=== PATIENT | female | born 1940 | race Caucasian/White ===

== ENCOUNTER 2017-12-21 18:21 | Emergency (ER) | payer MEDICARE, SELFPAY ==
[2017-12-21 18:22] VITALS: BP 159/103; PULSE 90; RESP 14; TEMP 36.8; O2SAT 95; BMI 40.2
--- NOTE | 2017-12-21 18:56 | ED.DCSUM_ITS ---
- ER Visit Summary Date of Service: 12/21/17 Chief Complaint: Right knee pain History of Present Illness: The patient is a 77 F with history of arthritis who presents with 1 week of right knee pain. Patient states she has not had pain in her right knee before, but began having pain similar to her arthritic pain in her left knee one week ago . She was seen by her primary care doctor 5 days ago, and was given a shot in the knee, with complete resolution of the pain. Patient had no further pain until today. She has pain with weightbearing that is requiring her to use a walker. She normally only uses the walker at night when trying to go to the bathroom. She denies fever. No history of injury. No swelling. Pain is sharp and aching. She took one Vicodin 2 hours prior to presentation but states that it has not helped the pain. No other complaints at this time. Physical Examination: Patient is well-nourished and well-developed, afebrile, laying in bed in no distress. Skin is warm and dry without rash. DP pulses are 2+ and symmetric. Appearance of the knees are symmetric. Right knee has full active and passive flexion and extension, with patient able to fully extend the leg and lifted off the bed. Tenderness to palpation over the medial proximal tibia in the bursa distribution. No swelling or ballotable fluid collection noted. Mild tenderness to palpation of the posterior fossa without any swelling. No rashes. No overlying erythema or warmth. Distal strength and sensation are intact. No calf tenderness. No palpable cords. No laxity on varus or valgus stress. Negative anterior and posterior drawer. Test Results: [] Emergency Department Course and Treatment: She was given subcutaneous morphine for pain, as she has history of bleeding ulcers and cannot take NSAIDs. X-ray of the knee was performed. No obvious fracture trauma was noted. There was noted calcification and a curved pattern in the posterior fossa, however this does seem more consistent with vasculature calcification rather than a fracture given the patient has no trauma history. Patient's maximum tenderness is more in the anterior medial proximal tibia/knee region rather than posteriorly. Patient's exam is not concerning for septic joint. This also was not consistent with a DVT. Patient will continue home [id number] pain medication and follow-up with her orthopedic doctor that has managed her left knee that had similar symptoms years ago. Patient was discharged home with return precautions if she has any worsening of her condition or inability to walk due to worsening pain. Treatment Plan: [] Disposition: [] Impression: Right knee pain, history of osteoarthritis This note was generated with [employer] dictation software. It may contain incorrect words, spelling, and punctuation that were not noted in review of the chart prior to signing ED Disposition - Plan for ED Patient: Disposition: Home or Assisted Living Chief Complaint: Lower Extremity Injury Instructions: ED Knee Pain [facility] Referrals: Chris Mendez Chi, MD [Primary Care Provider] - 1-2 Days if not improving Additional Instructions: Please follow-up with your orthopedic doctor for further evaluation of your knee pain. Please continue taking Tylenol as needed for pain, and take it for mild pain rather than waiting till your pain is out of control. If you find you are unable to walk because the pain is so severe, even with your walker, please come back to the emergency department for another evaluation. If you develop fever, swelling, redness or skin changes over the knee, please come back for another evaluation as well.
--- NOTE | 2017-12-21 18:59 | RAD_ITS ---
STUDY: X-RAY - RIGHT KNEE REASON FOR EXAM: Female, 77 years old. Pain. TECHNIQUE: 4 view(s) of the knee. COMPARISON: None. FINDINGS: Normal visualized distal femur. Normal visualized proximal tibia and fibula. Normal proximal tibiofibular articulation. There is mild degenerative arthrosis of the medial femorotibial compartment. There is mild degenerative arthrosis of the patellofemoral articulation. There is a faint density within the lateral compartment. There is a curvilinear calcific density projecting over the posterior knee that may be vascular in nature. RAD/Knee 4 or More Views IMPRESSION: Degenerative changes. Findings suggestive of chondrocalcinosis. Indeterminate curvilinear density projecting over the posterior knee, may be vascular or possibly posttraumatic in nature. Electronically Signed: Letty Miles MD at 20:10 EST Tel , Service support ,
--- NOTE | 2017-12-21 20:15 | ED.RN ---
no reaction at injection site.
[2017-12-21 20:59] VITALS: BP 137/87; PULSE 70; RESP 20; O2SAT 95
--- NOTE | 2017-12-21 21:20 | ED.DEP ---
ED Disposition - Plan for ED Patient: Disposition: Home or Assisted Living Chief Complaint: Lower Extremity Injury Instructions: ED Knee Pain [facility] Referrals: Chris Mendez Chi, MD [Primary Care Provider] - 1-2 Days if not improving Additional Instructions: Please follow-up with your orthopedic doctor for further evaluation of your knee pain. Please continue taking Tylenol as needed for pain, and take it for mild pain rather than waiting till your pain is out of control. If you find you are unable to walk because the pain is so severe, even with your walker, please come back to the emergency department for another evaluation. If you develop fever, swelling, redness or skin changes over the knee, please come back for another evaluation as well.
[2017-12-21 21:38] VITALS: RESP 20
== END 2017-12-21 21:38 | disposition home or self-care (01) ==
PROVIDERS: Emergency Provider Emergency Medicine; Family Provider Family Medicine Geriatric Medicine; PCP Family Medicine Geriatric Medicine
DX: M17.0 Bilateral primary osteoarthritis of knee (principal); M25.561 Pain in right knee; Z79.899 Other long term (current) drug therapy
CPT/HCPCS: 73564; 96372; 99282

== ENCOUNTER → 2018-02-10 15:01 | Outpatient (CLI) | payer MEDICARE, SELFPAY ==
[2018-02-10 17:14] LABS: Absolute Lymphocyte Count 1.21 X10^3/ul (0.83-4.51); Basophil# 0.01 X10^3/uL; Basophil% 0.1 % (0-1); Eosinophil# 0.14 X10^3/uL; Eosinophils% 1.5 % (0-5); Hematocrit 43.3 % (37-47); Hemoglobin 14.2 g/dl (12.0-15.0); Lymphocyte # 1.21 X10^3/ul (4.0); Lymphocyte % 12.9 % (19-41); Mean Corp Hgb Conc 32.8 g/gl (32-36); Mean Corpuscular Hgb 29.3 pg (27.0-32.0); Mean Corpuscular Volume 89.5 fL (81-99); Monocyte# 0.98 X10^3/uL; Monocyte% 10.4 % (0-10); Neutrophil # 7.04 X10^3/uL (2.7-7.7); Platelet Count 192 K/mm3 (150-450); RBC Distribution Width CV 13.8 % (11.6-14.6); RBC Distribution Width SD 44.7 fl (35.1-43.9); Red Blood Count 4.84 M/mm3 (4.2-5.4); White Blood Count 9.4 K/mm3 (4.4-11.0)
[2018-02-10 17:22] LABS: Anion Gap 9 (5-15); BUN 23 mg/dL (7-18); BUN/Creat Ratio 29.2 RATIO (10-20); CRP 8.11 mg/L (0.0-3.0); Calcium,Total 8.8 mg/dL (8.5-10.1); Chloride 105 mmol/L (98-107); Creatinine, Serum 0.79 mg/dL (0.55-1.02); EST Glomerular Filtration Rate 75 mL/min (>60); Est Glom Filt Rate - Afr Amer 90 mL/min (>60); Glucose 96 mg/dL (74-106); Phosphorus 3.5 mg/dL (2.5-4.9); Potassium 3.9 mmol/L (3.5-5.1); Sodium Level 140 mmol/L (136-145)
[2018-02-10 17:57] LABS: Erythrocyte Sedimentation Rate 7 mm/hr (0-30)
[2018-02-10 17:59] LABS: POSITIVE COUNT NO; POSITIVE DIFFERENTIAL NO; POSITIVE MORPHOLOGY NO
== END ==
PROVIDERS: Family Provider Family Medicine Geriatric Medicine; PCP Family Medicine Geriatric Medicine; Visit Provider Family Medicine Geriatric Medicine
DX: R25.9 Unspecified abnormal involuntary movements (principal)
CPT/HCPCS: 36415; 80048; 83735; 84100; 85025; 85652; 86140

== ENCOUNTER → 2018-03-13 12:23 | Outpatient (CLI) | payer MEDICARE, SELFPAY ==
[2018-03-13 13:41] LABS: Absolute Lymphocyte Count 1.52 X10^3/ul (0.83-4.51); Absolute Neutrophil Count 4.1 X10^3/uL (2.0-7.7); Basophil# 0.02 X10^3/uL; Basophil% 0.3 % (0-1); Eosinophil# 0.15 X10^3/uL; Eosinophils% 2.4 % (0-5); Hematocrit 45.1 % (37-47); Hemoglobin 14.9 g/dl (12.0-15.0); Lymphocyte # 1.52 X10^3/ul (4.0); Lymphocyte % 23.9 % (19-41); Mean Corpuscular Hgb 29.6 pg (27.0-32.0); Mean Corpuscular Volume 89.7 fL (81-99); Mean Platelet Vol. 10.6 fl (6.2-12.0); Monocyte# 0.59 X10^3/uL; Monocyte% 9.3 % (0-10); Neutrophil # 4.07 X10^3/uL (2.7-7.7); Neutrophil % 63.8 % (47-70); POSITIVE COUNT NO; POSITIVE DIFFERENTIAL NO; POSITIVE MORPHOLOGY NO; Platelet Count 203 K/mm3 (150-450); RBC Distribution Width CV 13.7 % (11.6-14.6); Red Blood Count 5.03 M/mm3 (4.2-5.4); White Blood Count 6.4 K/mm3 (4.4-11.0)
[2018-03-13 14:09] LABS: ALB/GLOB Ratio 1.1 RATIO (0.9-2.4); AST(SGOT) 23 U/L (15-37); Alanine Aminotransfer ALT/SGPT 22 U/L (13-56); Albumin, Serum 3.5 g/dL (3.2-5.0); Alkaline Phosphatase 88 U/L (45-117); Anion Gap 6 (5-15); BUN 17 mg/dL (7-18); BUN/Creat Ratio 18.4 RATIO (10-20); Chloride 105 mmol/L (98-107); Creatinine, Serum 0.92 mg/dL (0.55-1.02); EST Glomerular Filtration Rate 62 mL/min (>60); Est Glom Filt Rate - Afr Amer 75 mL/min (>60); Globulin 3.3 g/dL (2.2-4.2); Glucose 131 mg/dL (74-106); Potassium 4.2 mmol/L (3.5-5.1); Protein, Total 6.8 g/dL (6.4-8.2); Sodium Level 140 mmol/L (136-145); Thyroid Stim Hormone (TSH) 2.31 uIU/mL (0.358-3.74)
[2018-03-14 09:59] LABS: Vitamin D,25 Hydroxy 27.8 ng/mL (29.95-100.01)
== END ==
PROVIDERS: Family Provider Family Medicine Geriatric Medicine; PCP Family Medicine Geriatric Medicine; Visit Provider Family Medicine Geriatric Medicine
DX: E55.9 Vitamin D deficiency, unspecified (principal); R53.83 Other fatigue
CPT/HCPCS: 36415; 80053; 82306; 84443; 85025

== ENCOUNTER 2018-05-16 01:14 | Emergency (ER) | payer OTHER, SELFPAY ==
[2018-05-16 01:15] VITALS: BP 130/99; PULSE 89; RESP 14; TEMP 37.2; O2SAT 94; BMI 41.8
--- NOTE | 2018-05-16 02:01 | RAD_ITS ---
STUDY: X-RAY - UNILATERAL RIBS ( RIGHT ) WITH CHEST REASON FOR EXAM: Female, 78 years old. Trauma TECHNIQUE - RIBS: 4 view(s) of the ribs. TECHNIQUE - CHEST: Frontal view COMPARISON: February 03, 2017 FINDINGS - RIBS: Normal visualized ribs without a demonstrated fracture. FINDINGS - CHEST: There are fibrotic changes at the lung bases. There are NO active infiltrates. There are NO effusions or pneumothoraces. The heart is enlarged. Normal mediastinum and eddie. Normal visualized pulmonary arteries. Normal visualized aortic arch and descending thoracic aorta. Normal visualized thoracic spine. Normal visualized ribs, clavicles, and shoulders. There is no demonstrated abnormality of the visualized soft tissue structures of the upper abdomen. RAD/Ribs Uni Min 3V w/PA Chest IMPRESSION: RIBS: Normal x-ray examination of the ribs. CHEST: There is NO acute cardiopulmonary abnormality. Electronically Signed: Marcelino Benitez MD at 4:43 EDT , Service support ,
--- NOTE | 2018-05-16 02:01 | RAD_ITS ---
STUDY: X-RAY - LEFT KNEE REASON FOR EXAM: Female, 78 years old. Status post fall. TECHNIQUE: 2 view(s) of the knee. COMPARISON: None. FINDINGS: Normal visualized distal femur. Normal visualized proximal tibia and fibula. Normal proximal tibiofibular articulation. There is no demonstrated fracture. Normal medial femorotibial compartment. Normal lateral femorotibial compartment. Normal patellofemoral articulation. There is a soft tissue prominence in the suprapatellar region suggesting a small volume joint effusion. There are atherosclerotic calcifications. RAD/Knee 1 or 2 Views IMPRESSION: Small joint effusion. Degenerative arthrosis. No demonstrated acute fracture. Electronically Signed: Julio Horvath MD at 3:26 EDT Tel , Service support ,
--- NOTE | 2018-05-16 02:01 | RAD_ITS ---
STUDY: X-RAY - RIGHT KNEE REASON FOR EXAM: Female, 78 years old. Trauma TECHNIQUE: 2 view(s) of the knee. COMPARISON: 12/21/2017 FINDINGS: Bony structures are intact. There are NO fractures or malalignments. There is prepatellar soft tissue swelling. There is NO joint effusion. RAD/Knee 1 or 2 Views IMPRESSION: There is NO acute bony abnormality. There is prepatellar soft tissue swelling. Electronically Signed: Marcelino Benitez MD at 4:29 EDT , Service support ,
--- NOTE | 2018-05-16 03:55 | ED.VISSUMM ---
- ER Visit Summary Date of Service: 05/16/18 Chief Complaint: Fall History of Present Illness: The patient is a 78 F who presents after a fall. She fell 10 hours prior to presentation. This was a mechanical fall from standing. She fell forward and hit her chest. She also fell onto her bilateral knees. She complains of mild pain in the front of both knees but is mostly concerned with some right lower lateral chest pain. She is not short of breath. No head injury loss of consciousness. She is not anticoagulated. Physical Examination: Afebrile vitals are stable Moist mucous membranes Neck nontender No evidence of head trauma GCS of 15 with no focal or lateralizing neurological deficits Lungs are clear with equal breath sounds bilaterally Heart is regular rate and rhythm Patient does have right lower lateral chest wall tenderness Abdomen soft nontender nondistended Test Results: Left knee x-ray read by radiology shows a small effusion no fracture. Right knee x-ray read by me shows no fracture. Rib series with a PA chest read by me shows no pneumothorax, there does appear to be a fracture of the eighth rib. Emergency Department Course and Treatment: Radiology has read the left knee x-ray but no other imaging. Patient does not wish to wait any longer. She was given an incentive spirometer. She has oxycodone at home as needed for pain. She was advised on supportive care. She understands to return for new or worsening symptoms. She was discharged. Treatment Plan: [] Disposition: Discharge Impression: Bilateral knee contusions Eighth rib fracture, right This note was generated with [employer] dictation software. It may contain incorrect words, spelling, and punctuation that were not noted in review of the chart prior to signing ED Disposition - Plan for ED Patient: Chief Complaint: Fall Referrals: Chris Mendez Chi, MD [Primary Care Provider] -
--- NOTE | 2018-05-16 03:58 | ED.DCSUM_ITS ---
- ER Visit Summary Date of Service: 05/16/18 Chief Complaint: Fall History of Present Illness: The patient is a 78 F who presents after a fall. She fell 10 hours prior to presentation. This was a mechanical fall from standing. She fell forward and hit her chest. She also fell onto her bilateral knees. She complains of mild pain in the front of both knees but is mostly concerned with some right lower lateral chest pain. She is not short of breath. No head injury loss of consciousness. She is not anticoagulated. Physical Examination: Afebrile vitals are stable Moist mucous membranes Neck nontender No evidence of head trauma GCS of 15 with no focal or lateralizing neurological deficits Lungs are clear with equal breath sounds bilaterally Heart is regular rate and rhythm Patient does have right lower lateral chest wall tenderness Abdomen soft nontender nondistended Test Results: Left knee x-ray read by radiology shows a small effusion no fracture. Right knee x-ray read by me shows no fracture. Rib series with a PA chest read by me shows no pneumothorax, there does appear to be a fracture of the eighth rib. Emergency Department Course and Treatment: Radiology has read the left knee x- ray but no other imaging. Patient does not wish to wait any longer. She was given an incentive spirometer. She has oxycodone at home as needed for pain. She was advised on supportive care. She understands to return for new or worsening symptoms. She was discharged. Treatment Plan: [] Disposition: Discharge Impression: Bilateral knee contusions Eighth rib fracture, right This note was generated with [employer] dictation software. It may contain incorrect words, spelling, and punctuation that were not noted in review of the chart prior to signing ED Disposition - Plan for ED Patient: Chief Complaint: Fall Referrals: Chris Mendez Chi, MD [Primary Care Provider] -
--- NOTE | 2018-05-16 03:58 | ED.DEP ---
ED Disposition - Plan for ED Patient: Chief Complaint: Fall Instructions: ED Mechanical Fall, ED Fx Rib, ED Contusion Lower Ext Referrals: Chris Mendez Chi, MD [Primary Care Provider] -
[2018-05-16 04:16] VITALS: RESP 18
== END 2018-05-16 04:18 | disposition home or self-care (01) ==
PROVIDERS: Emergency Provider Emergency Medicine; Family Provider Family Medicine Geriatric Medicine; PCP Family Medicine Geriatric Medicine
DX: S22.31XA Fracture of one rib, right side, initial encounter for closed fracture (principal); S80.02XA Contusion of left knee, initial encounter; S80.01XA Contusion of right knee, initial encounter; I10 Essential (primary) hypertension; E78.00 Pure hypercholesterolemia, unspecified; Z79.899 Other long term (current) drug therapy; W18.30XA Fall on same level, unspecified, initial encounter; Y93.89 Activity, other specified; Y92.89 Other specified places as the place of occurrence of the external cause; Y99.8 Other external cause status
CPT/HCPCS: 71101; 73560; 99284

== ENCOUNTER → 2018-07-22 15:57 | Outpatient (CLI) | payer MEDICARE, SELFPAY ==
[2018-07-22 16:52] LABS: Absolute Lymphocyte Count 1.98 X10^3/ul (0.83-4.51); Absolute Neutrophil Count 4.3 X10^3/uL (2.0-7.7); Basophil# 0.01 X10^3/uL; Basophil% 0.1 % (0-1); Eosinophil# 0.19 X10^3/uL; Eosinophils% 2.7 % (0-5); Hematocrit 44.4 % (37-47); Hemoglobin 14.4 g/dl (12.0-15.0); Lymphocyte # 1.98 X10^3/ul (4.0); Mean Corp Hgb Conc 32.4 g/gl (32-36); Mean Corpuscular Hgb 29.3 pg (27.0-32.0); Mean Corpuscular Volume 90.2 fL (81-99); Mean Platelet Vol. 10.7 fl (6.2-12.0); Monocyte# 0.56 X10^3/uL; Monocyte% 7.9 % (0-10); Neutrophil # 4.32 X10^3/uL (2.7-7.7); Neutrophil % 61.3 % (47-70); POSITIVE COUNT NO; POSITIVE DIFFERENTIAL NO; POSITIVE MORPHOLOGY NO; Platelet Count 217 K/mm3 (150-450); RBC Distribution Width CV 12.9 % (11.6-14.6); RBC Distribution Width SD 42.1 fl (35.1-43.9); Red Blood Count 4.92 M/mm3 (4.2-5.4); White Blood Count 7.1 K/mm3 (4.4-11.0)
[2018-07-22 16:59] LABS: Anion Gap 8 (5-15); BUN 25 mg/dL (7-18); CRP < 2.90 mg/L (0.0-3.0); Calcium,Total 9.1 mg/dL (8.5-10.1); Chloride 105 mmol/L (98-107); EST Glomerular Filtration Rate 57 mL/min (>60); Est Glom Filt Rate - Afr Amer 69 mL/min (>60); Glucose 162 mg/dL (74-106); Sodium Level 141 mmol/L (136-145)
[2018-07-22 17:01] LABS: Erythrocyte Sedimentation Rate 11 mm/hr (0-30)
== END ==
PROVIDERS: Family Provider Family Medicine Geriatric Medicine; PCP Family Medicine Geriatric Medicine; Visit Provider Family Medicine Geriatric Medicine
DX: M35.3 Polymyalgia rheumatica (principal)
CPT/HCPCS: 36415; 80048; 85025; 85652; 86140

== ENCOUNTER → 2018-08-21 11:16 | Outpatient (CLI) | payer MEDICARE, SELFPAY ==
[2018-08-21 12:02] LABS: Absolute Lymphocyte Count 1.55 X10^3/ul (0.83-4.51); Basophil# 0.02 X10^3/uL; Basophil% 0.3 % (0-1); Eosinophil# 0.27 X10^3/uL; Eosinophils% 3.5 % (0-5); Hematocrit 45.2 % (37-47); Hemoglobin 14.7 g/dl (12.0-15.0); Lymphocyte # 1.55 X10^3/ul (4.0); Lymphocyte % 20.2 % (19-41); Mean Corp Hgb Conc 32.5 g/gl (32-36); Mean Corpuscular Hgb 29.2 pg (27.0-32.0); Mean Corpuscular Volume 89.9 fL (81-99); Mean Platelet Vol. 10.4 fl (6.2-12.0); Monocyte# 0.81 X10^3/uL; Monocyte% 10.5 % (0-10); Neutrophil # 5.02 X10^3/uL (2.7-7.7); Neutrophil % 65.4 % (47-70); Platelet Count 219 K/mm3 (150-450); RBC Distribution Width CV 13.3 % (11.6-14.6); RBC Distribution Width SD 43.3 fl (35.1-43.9); Red Blood Count 5.03 M/mm3 (4.2-5.4); White Blood Count 7.7 K/mm3 (4.4-11.0)
[2018-08-21 12:03] LABS: POSITIVE COUNT NO; POSITIVE DIFFERENTIAL NO; POSITIVE MORPHOLOGY NO
[2018-08-21 12:28] LABS: AST(SGOT) 20 U/L (15-37); Alanine Aminotransfer ALT/SGPT 23 U/L (13-56); Albumin, Serum 3.6 g/dL (3.2-5.0); Alkaline Phosphatase 113 U/L (45-117); Anion Gap 8 (5-15); BUN 21 mg/dL (7-18); Calcium,Total 8.8 mg/dL (8.5-10.1); Chloride 105 mmol/L (98-107); Creatinine, Serum 0.91 mg/dL (0.55-1.02); EST Glomerular Filtration Rate 63 mL/min (>60); Est Glom Filt Rate - Afr Amer 76 mL/min (>60); Globulin 3.6 g/dL (2.2-4.2); Glucose 88 mg/dL (74-106); Potassium 4.2 mmol/L (3.5-5.1); Protein, Total 7.2 g/dL (6.4-8.2); Sodium Level 142 mmol/L (136-145); Thyroid Stim Hormone (TSH) 2.05 uIU/mL (0.358-3.74); Vitamin D,25 Hydroxy 26.3 ng/mL (29.95-100.01)
== END ==
PROVIDERS: Family Provider Family Medicine Geriatric Medicine; PCP Family Medicine Geriatric Medicine; Visit Provider Family Medicine Geriatric Medicine
DX: I10 Essential (primary) hypertension (principal); E55.9 Vitamin D deficiency, unspecified
CPT/HCPCS: 36415; 80053; 82306; 84443; 85025

== ENCOUNTER 2018-09-19 11:39 | Emergency (ER) | payer MEDICARE, SELFPAY ==
[2018-09-19 11:40] VITALS: BP 169/118; PULSE 92; RESP 18; TEMP 36.7; O2SAT 94; BMI 40.2
[2018-09-19 11:54] VITALS: O2SAT 93
--- NOTE | 2018-09-19 11:57 | CT_ITS ---
STUDY: CT CHEST WITHOUT CONTRAST REASON FOR EXAM: Female, 78 years old. Chest wall trauma RADIATION DOSAGE (If Supplied By Facility): CTDIvol = ( 19.96 ) mGy, DLP = ( 763.25 ) mGycm TECHNIQUE: Transaxial imaging was performed without the administration of intravenous contrast material. Multiplanar coronal and sagittal images were reformatted. Individualized dose optimization techniques were used for this CT. COMPARISON: May 16, 2018 rib series FINDINGS: There are a few scattered areas of groundglass opacity. There is some volume loss in the left lung. There is a focal solid nodule within the left lower lobe measuring 6.0 mm. There is a focus of what may be atelectasis and a potential nodule measuring 7.7 x 8.5 mm in the right lower lobe. There is no demonstrated pleural abnormality. There is moderate to severe cardiac enlargement. There are coronary calcifications. There are nonspecific small mediastinal lymph nodes measuring up to 8.2 mm. Normal hilar regions. Normal unenhanced pulmonary arteries. The ascending thoracic aorta measures 4.2 x 4.3 cm. There is calcification. There is tortuosity of the distal aorta. There is a visualized atypical lymph node adjacent to the aorta at the hiatus measuring 1.3 x 1.1 cm. There is a tortuous loop of large bowel which is just under the left splenic vein with diverticula. As a small hiatal hernia. There are multi-level degenerative changes of the thoracic spine. There is a nondisplaced fracture of left rib 2. Image #23 axial views. There is no significant evidence of overlying soft tissue swelling. CT/Chest without Contrast IMPRESSION: Nondisplaced fracture left rib 2. Findings are most suspicious for underlying cardiogenic edema. There is moderate to severe cardiomegaly coronary artery calcification. There is a 6 mm solid nodule in the left lower lobe. There is questionable atelectasis versus small associated nodule in the right lower lobe. Recommend CT scan of the chest in 6 months to ensure stability Mild aneurysmal dilatation of the descending thoracic aorta. If appropriate to consider contrasted study for follow-up. No evidence of visualized superficial soft tissue hematoma Small lymph nodes near the gastroesophageal junction. Small hiatal hernia. Electronically Signed: Tammi Collazo MD at 12:55 EST Tel , Service support ,
--- NOTE | 2018-09-19 13:24 | ED.VISSUMM ---
- ER Visit Summary Date of Service: 09/19/18 Chief Complaint: Chest pain History of Present Illness: The patient is a 78 F who states that 4 days ago she was leaning over a shopping cart she felt a pop in her chest. She states that the pain has progressed up her chest wall now up and over the clavicle. No shortness of breath. She has a history of a perforated duodenum. No fevers. No rashes. Physical Examination: Afebrile noted hypertension Gen: Well-nourished well-developed Head: Normocephalic atraumatic Eyes: Perrl EOMI ENT: TMs clear no rhinorrhea moist mucous membranes Neck: Supple no lymphadenopathy no JVD nontender CVS: Regular rate rhythm no murmurs normal S1-S2 Respiratory: No distress clear to auscultation bilaterally left lower anterior costochondral area is tender to palpation. The right upper anterior chest wall is tender palpation Abdomen: Soft nontender nondistended normal bowel sounds no masses Back: Nontender Extremity: Nontender no edema Skin: Normal color no rash Neuro: alert orientated ?3 CN II-XII intact normal strength sensation reflexes gait cerebellar Psych: Normal affect normal mood Test Results: CT the chest demonstrated a rib fracture Emergency Department Course and Treatment: Patient will be treated conservatively at home. A few Patillas will be prescribed. Follow-up in 1-2 weeks. Incentive spirometry discussed. Impression: 1. Left rib fracture #2 2. Left costochondritis This note was generated with [employer] dictation software. It may contain incorrect words, spelling, and punctuation that were not noted in review of the chart prior to signing ED Disposition - Plan for ED Patient: Disposition: Home or Assisted Living Chief Complaint: Chest Other Instructions: Rib Fracture (Broken Rib), ED Chest Pain Costochondritis Prescriptions: Hydrocodone Bitart/Apap 5-325 [Patillas 5MG-325MG] 1 tab PO Q6H PRN PRN 3 Days #10 tab PRN Reason: Pain Referrals: Chris Mendez Chi, MD [Primary Care Provider] - 1-2 Weeks
--- NOTE | 2018-09-19 13:27 | ED.DCSUM_ITS ---
- ER Visit Summary Date of Service: 09/19/18 Chief Complaint: Chest pain History of Present Illness: The patient is a 78 F who states that 4 days ago she was leaning over a shopping cart she felt a pop in her chest. She states that the pain has progressed up her chest wall now up and over the clavicle. No shortness of breath. She has a history of a perforated duodenum. No fevers. No rashes. Physical Examination: Afebrile noted hypertension Gen: Well-nourished well-developed Head: Normocephalic atraumatic Eyes: Perrl EOMI ENT: TMs clear no rhinorrhea moist mucous membranes Neck: Supple no lymphadenopathy no JVD nontender CVS: Regular rate rhythm no murmurs normal S1-S2 Respiratory: No distress clear to auscultation bilaterally left lower anterior costochondral area is tender to palpation. The right upper anterior chest wall is tender palpation Abdomen: Soft nontender nondistended normal bowel sounds no masses Back: Nontender Extremity: Nontender no edema Skin: Normal color no rash Neuro: alert orientated ?3 CN II-XII intact normal strength sensation reflexes gait cerebellar Psych: Normal affect normal mood Test Results: CT the chest demonstrated a rib fracture Emergency Department Course and Treatment: Patient will be treated conservatively at home. A few Coral will be prescribed. Follow-up in 1-2 weeks. Incentive spirometry discussed. Impression: 1. Left rib fracture #2 2. Left costochondritis This note was generated with [employer] dictation software. It may contain incorrect words, spelling, and punctuation that were not noted in review of the chart prior to signing ED Disposition - Plan for ED Patient: Disposition: Home or Assisted Living Chief Complaint: Chest Other Instructions: Rib Fracture (Broken Rib), ED Chest Pain Costochondritis Prescriptions: Hydrocodone Bitart/Apap 5-325 [Coral 5MG-325MG] 1 tab PO Q6H PRN PRN 3 Days #10 tab PRN Reason: Pain Referrals: Chris Mendez Chi, MD [Primary Care Provider] - 1-2 Weeks
[2018-09-19 14:01] VITALS: BP 178/108; PULSE 86; RESP 16
--- NOTE | 2018-09-19 14:02 | ED.RN ---
BP AT D/C 175/126 WITH A REPEAT AT 172/114 mANUAL BP 178/108. DR CLARK AWARE AND ADVISED PT TO RECHECK BP OVER NEXT COUPLE DAYS AND F/U WITH THEA WALLER
== END 2018-09-19 14:12 | disposition home or self-care (01) ==
PROVIDERS: Emergency Provider Emergency Medicine; Family Provider Family Medicine Geriatric Medicine; PCP Family Medicine Geriatric Medicine
DX: M94.0 Chondrocostal junction syndrome [Tietze] (principal); S22.32XA Fracture of one rib, left side, initial encounter for closed fracture; I10 Essential (primary) hypertension; E78.00 Pure hypercholesterolemia, unspecified; G47.33 Obstructive sleep apnea (adult) (pediatric); Z79.899 Other long term (current) drug therapy; X50.1XXA Overexertion from prolonged static or awkward postures, initial encounter; Y93.89 Activity, other specified; Y92.512 Supermarket, store or market as the place of occurrence of the external cause; Y99.8 Other external cause status
CPT/HCPCS: 71250; 99282

== ENCOUNTER → 2018-11-10 14:41 | Outpatient (CLI) | payer MEDICARE, SELFPAY | PROVIDERS: Family Provider Family Medicine Geriatric Medicine; PCP Family Medicine Geriatric Medicine; Referring Provider Family Medicine Geriatric Medicine; Visit Provider Family Medicine Geriatric Medicine | DX: R53.83 Other fatigue (principal) | CPT/HCPCS: 87633 ==

== ENCOUNTER → 2019-02-11 | Outpatient (CLI) | payer MEDICARE, SELFPAY ==
--- NOTE | 2019-02-11 11:56 | RAD_ITS ---
STUDY: X-RAY CHEST REASON FOR EXAM: Female, 78 years old. Chest congestion. TECHNIQUE: PA and lateral views of the chest. COMPARISON: Comparison is made with prior study dated February 03, 2017. FINDINGS: Mild degree of increased markings at the lung bases suggestive of bibasilar atelectasis. There is blunting of the left costophrenic angle. There is moderate cardiac enlargement. Normal mediastinum and eddie. There is prominence of the pulmonary hilar arteries without peripheral pulmonary vascular congestion, suggesting pulmonary hypertension. There is atherosclerotic tortuosity of the aortic arch and descending thoracic aorta. There is a dextroscoliosis of the thoracic spine. Normal visualized ribs, clavicles, and shoulders. There is no demonstrated abnormality of the visualized soft tissue structures of the upper abdomen. RAD/Chest PA and Lateral IMPRESSION: Thyromegaly. Mild increased markings at the lung bases suggestive of atelectasis. Electronically Signed: Carlos Gross, at 15:13 EDT , Service support ,
== END | disposition home or self-care (01) ==
LOC: RAD 11:36
PROVIDERS: Family Provider Family Medicine Geriatric Medicine; PCP Family Medicine Geriatric Medicine; Referring Provider Family Medicine Geriatric Medicine; Visit Provider Family Medicine Geriatric Medicine
DX: R68.83 Chills (without fever) (principal); R69 Illness, unspecified
CPT/HCPCS: 71046; 87633

== ENCOUNTER → 2019-03-16 16:14 | Outpatient (CLI) | payer MEDICARE, SELFPAY ==
[2019-03-16 16:56] LABS: Absolute Lymphocyte Count 1.88 X10^3/ul (0.83-4.51); Basophil# 0.02 X10^3/uL; Basophil% 0.3 % (0-1); Eosinophil# 0.19 X10^3/uL; Eosinophils% 2.7 % (0-5); Hematocrit 45.9 % (37-47); Hemoglobin 15.4 g/dl (12.0-15.0); Lymphocyte # 1.88 X10^3/ul (4.0); Lymphocyte % 27.2 % (19-41); Mean Corp Hgb Conc 33.6 g/gl (32-36); Mean Corpuscular Hgb 29.1 pg (27.0-32.0); Mean Corpuscular Volume 86.6 fL (81-99); Monocyte# 0.77 X10^3/uL; Monocyte% 11.1 % (0-10); Neutrophil # 4.03 X10^3/uL (2.7-7.7); Neutrophil % 58.4 % (47-70); Platelet Count 209 K/mm3 (150-450); RBC Distribution Width CV 13.4 % (11.6-14.6); RBC Distribution Width SD 42.1 fl (35.1-43.9); White Blood Count 6.9 K/mm3 (4.4-11.0)
[2019-03-16 17:03] LABS: POSITIVE COUNT NO; POSITIVE DIFFERENTIAL NO; POSITIVE MORPHOLOGY NO
[2019-03-16 17:08] LABS: Vitamin D,25 Hydroxy 18.4 ng/mL (29.95-100.01)
[2019-03-16 17:11] LABS: ALB/GLOB Ratio 1.2 RATIO (0.9-2.4); AST(SGOT) 19 U/L (15-37); Alanine Aminotransfer ALT/SGPT 23 U/L (13-56); Albumin, Serum 3.9 g/dL (3.2-5.0); Alkaline Phosphatase 99 U/L (45-117); Anion Gap 8 (5-15); BUN 21 mg/dL (7-18); BUN/Creat Ratio 22.2 RATIO (10-20); Calcium,Total 9.2 mg/dL (8.5-10.1); Chloride 107 mmol/L (98-107); Creatinine, Serum 0.94 mg/dL (0.55-1.02); EST Glomerular Filtration Rate 60 mL/min (>60); Est Glom Filt Rate - Afr Amer 73 mL/min (>60); Globulin 3.2 g/dL (2.2-4.2); Glucose 94 mg/dL (74-106); Potassium 3.8 mmol/L (3.5-5.1); Protein, Total 7.1 g/dL (6.4-8.2); Sodium Level 142 mmol/L (136-145); Thyroid Stim Hormone (TSH) 2.58 uIU/mL (0.358-3.74)
== END ==
PROVIDERS: Family Provider Family Medicine Geriatric Medicine; PCP Family Medicine Geriatric Medicine; Visit Provider Family Medicine Geriatric Medicine
DX: E55.9 Vitamin D deficiency, unspecified (principal); I10 Essential (primary) hypertension
CPT/HCPCS: 36415; 80053; 82306; 84443; 85025

== ENCOUNTER → 2019-07-24 | Outpatient (CLI) | payer MEDICARE, SELFPAY ==
--- NOTE | 2019-07-24 10:06 | BI_ITS ---
MAMMOGRAPHY - BILATERAL SCREENING REASON FOR EXAM: Female, 79 years old. Routine annual screening examination. PERTINENT HISTORY: Non-contributory. TECHNIQUE: Digital bilateral breast tony (3D mammographic acquisition) in the CC and MLO projections. 2-D mediolateral oblique (MLO) and craniocaudad (CC) views of both breasts were obtained. CAD: Full Field Digital Mammography with Computer Added Detection was performed. COMPARISON: Comparison is made with prior examination dated June 30, 2018. FINDINGS: Breast Composition: The breasts are heterogeneously dense, which may obscure small masses. There are no dominant masses or suspicious calcifications. No other significant abnormalities are identified. There has been no significant change since the prior study. BI/SCREEN MAMM (CAD) W/TONY BILAT IMPRESSION: Stable bilateral screening mammogram. Yearly follow-up mammogram recommended. (A) ASSESSMENT CATEGORY: BIRADS Category 1: Negative. A letter regarding these results will be sent to the patient by the facility within 30 days. Approximately 10% of breast cancers are not detected by mammography. A normal mammogram should not delay biopsy of a clinically suspicious abnormality. [id number] Electronically Signed: Carlos Gross, at 12:23 EDT , Service support ,
== END | disposition home or self-care (01) ==
LOC: OPBI 10:04
PROVIDERS: Family Provider Family Medicine Geriatric Medicine; PCP Family Medicine Geriatric Medicine; Referring Provider Family Medicine Geriatric Medicine; Visit Provider Family Medicine Geriatric Medicine
DX: Z12.31 Encounter for screening mammogram for malignant neoplasm of breast (principal); Z78.0 Asymptomatic menopausal state
CPT/HCPCS: 77063; 77067

== ENCOUNTER → 2019-09-14 | Outpatient (CLI) | payer MEDICARE, SELFPAY ==
[2019-09-14 12:24] LABS: Absolute Lymphocyte Count 1.42 X10^3/uL (0.83-4.51); Absolute Neutrophil Count 3.6 X10^3/uL (2.0-7.7); Basophil# 0.02 X10^3/uL; Basophil% 0.3 % (0-1); Eosinophil# 0.27 X10^3/uL; Eosinophils% 4.6 % (0-5); Hematocrit 45.7 % (37-47); Lymphocyte # 1.42 X10^3/ul (4.0); Lymphocyte % 24.3 % (19-41); Mean Corp Hgb Conc 32.8 g/dL (32-36); Mean Corpuscular Hgb 29.2 pg (27.0-32.0); Mean Corpuscular Volume 89.1 fL (81-99); Mean Platelet Vol. 10.9 fl (6.2-12.0); Monocyte# 0.57 X10^3/uL; Monocyte% 9.7 % (0-10); NRBC Flagged by Analyzer 0 % (0-5); Neutrophil # 3.56 X10^3/uL (2.7-7.7); Neutrophil % 60.9 % (47-70); Platelet Count 166 K/mm3 (150-450); RBC Distribution Width CV 12.6 % (11.6-14.6); RBC Distribution Width SD 41.2 fl (35.1-43.9); Red Blood Count 5.13 M/mm3 (4.2-5.4); White Blood Count 5.9 K/mm3 (4.4-11.0)
[2019-09-14 12:46] LABS: Vitamin D,25 Hydroxy 25.4 ng/mL (29.95-100.01)
[2019-09-14 12:56] LABS: ALB/GLOB Ratio 1.1 RATIO (0.9-2.4); AST(SGOT) 20 U/L (15-37); Alanine Aminotransfer ALT/SGPT 20 U/L (13-56); Albumin, Serum 3.6 g/dL (3.2-5.0); Alkaline Phosphatase 104 U/L (45-117); Anion Gap 7 (5-15); BUN 17 mg/dL (7-18); BUN/Creat Ratio 21.1 RATIO (10-20); Calcium,Total 8.9 mg/dL (8.5-10.1); Chloride 107 mmol/L (98-107); EST Glomerular Filtration Rate 73 mL/min (>60); Est Glom Filt Rate - Afr Amer 88 mL/min (>60); Globulin 3.4 g/dL (2.2-4.2); Glucose 96 mg/dL (74-106); Potassium 4.3 mmol/L (3.5-5.1); Sodium Level 143 mmol/L (136-145); Thyroid Stim Hormone (TSH) 3.12 uIU/mL (0.358-3.74)
== END | disposition home or self-care (01) ==
LOC: POLAB3 11:54
PROVIDERS: Family Provider Family Medicine Geriatric Medicine; PCP Family Medicine Geriatric Medicine; Visit Provider Family Medicine Geriatric Medicine
DX: E55.9 Vitamin D deficiency, unspecified (principal); I10 Essential (primary) hypertension
CPT/HCPCS: 36415; 80053; 82306; 84443; 85025

== ENCOUNTER → 2019-11-06 11:53 | Outpatient (CLI) | payer MEDICARE, SELFPAY ==
--- NOTE | 2019-11-06 12:14 | RAD_ITS ---
STUDY: X-RAY CHEST REASON FOR EXAM: Female, 79 years old. SHORT OF BREATH TECHNIQUE: PA and lateral views of the chest. COMPARISON: 02/11/2019 FINDINGS: Fibrotic scarring in the lingula is stable. There is no demonstrated pleural abnormality. There is moderate cardiac enlargement. Normal mediastinum and eddie. Normal visualized pulmonary arteries. There is atherosclerotic tortuosity of the aortic arch and descending thoracic aorta. There is demineralization of the osseous structures. Normal visualized ribs, clavicles, and shoulders. There is no demonstrated abnormality of the visualized soft tissue structures of the upper abdomen. RAD/Chest PA and Lateral IMPRESSION: 1. Stable, nonacute x-ray examination of the chest. Electronically Signed: Jose Trevino MD ([place]) at 16:03 EST , Service support ,
[2019-11-06 12:46] LABS: Absolute Lymphocyte Count 1.56 X10^3/uL (0.83-4.51); Basophil# 0.03 X10^3/uL; Basophil% 0.4 % (0-1); Eosinophil# 0.24 X10^3/uL; Eosinophils% 3.6 % (0-5); Hematocrit 44.6 % (37-47); Hemoglobin 14.4 g/dL (12.0-15.0); Lymphocyte # 1.56 X10^3/ul (4.0); Lymphocyte % 23.4 % (19-41); Mean Corp Hgb Conc 32.3 g/dL (32-36); Mean Corpuscular Hgb 28.8 pg (27.0-32.0); Mean Corpuscular Volume 89.2 fL (81-99); Mean Platelet Vol. 10.3 fl (6.2-12.0); Monocyte# 0.81 X10^3/uL; Monocyte% 12.1 % (0-10); NRBC Flagged by Analyzer 0 % (0-5); Neutrophil # 4.01 X10^3/uL (2.7-7.7); Neutrophil % 60.2 % (47-70); Platelet Count 211 K/mm3 (150-450); RBC Distribution Width CV 13.1 % (11.6-14.6); RBC Distribution Width SD 42.5 fl (35.1-43.9); White Blood Count 6.7 K/mm3 (4.4-11.0)
[2019-11-06 13:19] LABS: BNP,B-Type NATRIURETIC PEPTIDE 284.7 pg/mL (0-100)
[2019-11-06 13:25] LABS: Anion Gap 7 (5-15); BUN 21 mg/dL (7-18); BUN/Creat Ratio 24.6 RATIO (10-20); CPK Total, Creatine Kinase 78 U/L (26-192); Calcium,Total 9.3 mg/dL (8.5-10.1); Chloride 108 mmol/L (98-107); Creatinine, Serum 0.85 mg/dL (0.55-1.02); EST Glomerular Filtration Rate 68 mL/min (>60); Est Glom Filt Rate - Afr Amer 82 mL/min (>60); Glucose 105 mg/dL (74-106); Potassium 4.1 mmol/L (3.5-5.1); Sodium Level 141 mmol/L (136-145)
[2019-11-07 13:00] LABS: Myoglobin, Serum 29 ng/mL (25-58)
== END ==
LOC: POLAB3 11:54 → RAD 12:12
PROVIDERS: Family Provider Family Medicine Geriatric Medicine; PCP Family Medicine Geriatric Medicine; Referring Provider Family Medicine Geriatric Medicine; Visit Provider Family Medicine Geriatric Medicine
DX: R07.9 Chest pain, unspecified (principal); R06.02 Shortness of breath
CPT/HCPCS: 36415; 71046; 80048; 82550; 83874; 83880; 84484; 85025

== ENCOUNTER → 2019-12-07 | Outpatient (CLI) | payer MEDICARE, SELFPAY ==
[2019-11-25 12:45] VITALS: BMI 40.8
--- NOTE | 2019-12-07 06:50 | ECHOCS_ITS ---
Reason For Study: Dyspnea/SOB Procedure This was a 2D Doppler, Color Flow transthoracic echocardiogram. The study was technically difficult. Contrast injection was performed. Exam performed in department. Left Ventricle Normal LV size. Mild concentric left ventricular hypertrophy. The estimated ejection fraction is 37 %. There is moderate global hypokinesis of the left ventricle. Right Ventricle Normal RV size. Normal systolic function. Atria Normal left atrium. Normal right atrium. Mitral Valve Normal mitral valve. Mild (1+) eccentric mitral valve insufficiency. Tricuspid Valve Normal tricuspid valve. Mild (1+) tricuspid valve insufficiency. Aortic Valve Trisinus/trileaflet aortic valve. Mild focal aortic valve calcification. Pulmonic Valve The pulmonic valve is not well visualized. Great Vessels Calcified aortic root. The pulmonary artery is normal size. Normal inferior vena cava. Pericardium/Pleural No pericardial effusion. Medication Diluted definity 3ml given slow IV push to enhance endocardial definition. MMode/2D Measurements & Calculations LVIDd: 5.0 cm IVSd: 1.2 cm LVOT diam: 2.0 cm LVIDs: 4.2 cm LVPWd: 1.2 cm RVDd: 3.4 cm FS: 15.8 % LVOT area: 3.0 cm2 Ao root diam: 4.1 cm LAV(MOD-bp): 46.5 ml LVAd ap4: 30.9 cm2 LAV(MOD-bp) Indexed: 24.5 ml/m2 EDV(MOD-sp4): 101.0 ml LAV(MOD-sp2): 50.2 ml EDV(sp4-el): 103.9 ml LAV(MOD-sp4): 36.8 ml LVAs ap4: 24.7 cm2 ESV(MOD-sp4): 71.8 ml ESV(sp4-el): 73.8 ml EF(MOD-sp4): 28.9 % EF(sp4-el): 29.0 % SV(MOD-sp4): 29.2 ml SV(sp4-el): 30.1 ml LA A4 area: 14.3 cm2 LA dimension(2D): 4.6 cm RA A4 area: 15.9 cm2 Doppler Measurements & Calculations MV E max javy: 64.7 cm/sec Lat Peak E' Javy: 3.6 cm/sec Med Peak E' Javy: 7.1 cm/sec MV A max javy: 118.1 cm/sec E/E' lat: 17.9 E/E' med: 9.1 MV E/A: 0.55 Ao V2 max: 176.6 cm/sec LV V1 max: 117.1 cm/sec SV(LVOT): 73.0 ml Ao max P.5 mmHg LV V1 max P.5 mmHg Ao V2 mean: 125.4 cm/sec LV V1 mean P.2 mmHg Ao mean P.9 mmHg LV V1 mean: 85.7 cm/sec Ao V2 VTI: 33.9 cm LV V1 VTI: 24.1 cm ISAI(I,D): 2.2 cm2 ISAI(V,D): 2.0 cm2 PA V2 max: 113.2 cm/sec TR max javy: 247.0 cm/sec TR max P.4 mmHg Interpretation Summary Normal LV size. Mild concentric left ventricular hypertrophy. The estimated ejection fraction is 37 %. Calcified aortic root. Contrast injection was performed. Ordering Physician: Osmar Murillo Referring Physician: Chris Mendez Chi Performed By: Ann-Marie Ramos, WIL, RVT
--- NOTE | 2019-12-07 18:33 | STRESSREP ---
Stress Test Report Pharmacologic myocardial perfusion stress test. 79-year-old lady with a history of known coronary artery disease and shortness of breath. Medications: Pravachol, Cozaar, furosemide. Stress protocol: Resting EKG demonstrates normal sinus rhythm with a rate of 83 bpm occasional premature ventricular complexes noted. Resting blood pressures 146/88 mmHg. 0.4 mg of regadenoson was infused per usual protocol followed Intravenous saline flush injection continuous EKG monitoring was performed. Patient maintained sinus rhythm throughout the recording. At rest nonspecific ST-T wave changes were noted. At peak infusion there was approximately [address] depression noted in leads II, III and aVF suggestive of abnormal flow reserve. The final blood pressure was 142/86 mmHg. Myocardial perfusion protocol. 13.9 mCi of technetium 99m sestamibi was injected at rest. 0.4 mg of regadenoson was infused per usual protocol. At peak infusion 41.4 mCi of technetium 99m sestamibi was injected stress images were obtained stress and rest images were reconstructed in comparing the short axis vertical long horizontal long axis. Gated images were also obtained. Perfusion SPECT analysis: Review of the stress images demonstrate normal uptake of tracer noted in the septum and inferior wall and lateral wall. There appears to be a defect in the mid to distal anterior wall which is also present on the resting images. The above is suggestive of a previous anterior infarct. There is mild improvement in the distal anterior wall however suggestive of mild anterior ischemia. Gated SPECT analysis: The gated ejection fraction is noted to be 40%. Conclusion: Pharmacologic myocardial perfusion stress test with EKG changes suggestive of abnormal flow reserve. Mild anterior ischemia noted. Previous small anterior infarct present. Mildly reduced ejection fraction.
== END | disposition home or self-care (01) ==
LOC: CVS 06:49
PROVIDERS: PCP Family Medicine Geriatric Medicine; Referring Provider Internal Medicine Cardiovascular Disease; Visit Provider Internal Medicine Cardiovascular Disease
DX: I25.10 Atherosclerotic heart disease of native coronary artery without angina pectoris (principal); R06.00 Dyspnea, unspecified; R06.02 Shortness of breath
CPT/HCPCS: 78452; 93017; 93306; A9500; Q9957; A4216; C8929; J2785

== ENCOUNTER 2019-12-14 08:04 | Day surgery (SDC) | payer MEDICARE, SELFPAY ==
[2019-11-25 12:45] VITALS: BMI 40.8
[2019-12-10 10:38] LABS: Absolute Lymphocyte Count 1.32 X10^3/uL (0.83-4.51); Absolute Neutrophil Count 2.9 X10^3/uL (2.0-7.7); Basophil# 0.02 X10^3/uL; Basophil% 0.4 % (0-1); Eosinophil# 0.21 X10^3/uL; Eosinophils% 4.2 % (0-5); Hemoglobin 14.3 g/dL (12.0-15.0); Lymphocyte # 1.32 X10^3/ul (4.0); Lymphocyte % 26.6 % (19-41); Mean Corp Hgb Conc 32.5 g/dL (32-36); Mean Corpuscular Hgb 29.2 pg (27.0-32.0); Mean Corpuscular Volume 89.8 fL (81-99); Mean Platelet Vol. 10.5 fl (6.2-12.0); Monocyte# 0.54 X10^3/uL; Monocyte% 10.9 % (0-10); NRBC Flagged by Analyzer 0 % (0-5); Neutrophil # 2.86 X10^3/uL (2.7-7.7); Neutrophil % 57.7 % (47-70); Platelet Count 197 K/mm3 (150-450); RBC Distribution Width CV 12.3 % (11.6-14.6); RBC Distribution Width SD 39.8 fl (35.1-43.9)
[2019-12-10 10:59] LABS: Anion Gap 3 (5-15); BUN 21 mg/dL (7-18); BUN/Creat Ratio 24.1 RATIO (10-20); Chloride 104 mmol/L (98-107); Creatinine, Serum 0.87 mg/dL (0.55-1.02); EST Glomerular Filtration Rate 66 mL/min (>60); Est Glom Filt Rate - Afr Amer 80 mL/min (>60); Glucose 129 mg/dL (74-106); Potassium 3.5 mmol/L (3.5-5.1); Sodium Level 139 mmol/L (136-145)
[2019-12-11 07:54] VITALS: BMI 40.8
[2019-12-14] VITALS (24 sets, daily range): BP systolic 97–157; BP diastolic 50–98; PULSE 64–98; RESP 12–23; TEMP 36.4–36.9; O2SAT 92–100; BMI 98.1; BMI 40.8
--- NOTE | 2019-12-14 10:04 | CL.D_ITS ---
Patient Name: IRENE PAYAN Study Date: 12/14/2019 Performing: Osmar Murillo MD Ht: 59.84 inches 152 cm : 1940 Wt: 209.44 lbs 95 kg Age: 79 Gender: female BSA: 1.9 PROCEDURE(S) PERFORMED [id number] CLINICAL PROFILE AND INDICATIONS Indications: Suspected CAD Heart Failure: None Stress/Imaging Date: 12/07/2019Stress Test with SPECT MPI: Positive Intermediate Risk CAD Presentations: Stable angina. CONCLUSIONS Severe two-vessel disease involving the mid left anterior descending artery as well as a focal stenos is in the first obtuse marginal branch. Moderately severe low ventricular systolic dysfunction with estimated EF 35%. RECOMMENDATIONS Referred for immediate PCI DESCRIPTION OF PROCEDURE The patient arrived to the procedure lab. The risks and benefits of the procedure as well as a full d escription of our services here and current unavailability of surgical backup were fully explained to the patient and/or their significant other prior to the catheterization. The Timeout was completed, verifying the correct patient and procedure. The patient's procedural site was prepped and draped in the usual fashion. Local anesthetic was given subcutaneously to right groin region with Lidocaine 2%. Using a modified Seldinger technique, arterial access was obtained via the right femoral artery, a 5 Fr sheath was inserted. Left Coronary Artery selective angiography was performed in multiple views u sing a 5 Fr. JL 5 catheter. Right Coronary Artery selective angiography was then performed in multipl e views using a 5 Fr. 3DRC (Naun) catheter. Left Ventriculography was performed in DILLON projection using a 5 Fr. Pigtail catheter. LV to AO pullback pressures were then recorded.Contrast was injected through the sheath and the Right Iliac and Femoral artery were assessed for possible john sure device.The arterial sheath was pulled and a Mynx closure device was deployed for hemostasis CORONARY ANGIOGRAPHY DOMINANCE: Right Dominant LEFT HEART ASSESSMENT Left Ventricular Ejection Fraction: by LV Gram 35 % Anterior Hypokinesis - Severe LEFT MAIN: Angiographically normal LEFT ANTERIOR DESCENDING ARTERY: MID LAD: 95 long % Stenosis CIRCUMFLEX ARTERY: OM 1: Proximal - focal 95 % Stenosis RIGHT CORONARY ARTERY: PROX RCA: Mild luminal irregularities less than 30% COLLATERAL FLOW: Collateral flow from Right to Left COMPLICATIONS No Complications PROCEDURE MEDICATIONS Versed 1 mg IV Oxygen: 2 L/min via nasal cannula Heparin 6000 unit(s) IV 12/14/2019 09:25:43 Nitro 200 mcg IC 12/14/2019 09:27:39 Nitro 200 mcg IC 12/14/2019 09:27:39 Nitro 200 mcg IC 12/14/2019 09:32:03 Nitro 200 mcg IC 12/14/2019 09:39:18 SUMMARY OF HEMODYNAMIC DATA Time AIR REST ECG 08:29:46 AO 163/96 (122) SA 09:09:38 AO 159/87 (117) 09:12:41 LV 173/9, 21 09:21:07 LV 158/8, 16 09:21:21 LV 162/2, 21 09:22:03 LV 169/4, 23 09:22:09 LVp 172/8, 25 09:22:14 AOp 170/94 (124) 09:22:19 Signed By Osmar Murillo MD On 12/14/2019 10:03:16 Osmar Murillo MD
--- NOTE | 2019-12-14 10:16 | CL.I_ITS ---
Patient Name: IRENE PAYAN Study Date: 12/14/2019 Performing: Forrest Menendez MD Ht: 59.84 inches 152 cm : 1940 Wt: 209.44 lbs 95 kg Age: 79 Gender: female BSA: 1.9 PROCEDURE(S) PERFORMED [id number] W OR WO PTCA, SINGLE CORONARY ARTERY [id number] W OR WO PTCA, SINGLE CORONARY ARTERY CLINICAL PROFILE AND CO-MORBIDITIES Indications: Suspected CAD, Suspected CAD, LV Dysfunction Heart Failure: NYHA Class: 2, Newly Diagnosed: Yes, Heart Failure Type: Systolic Stress/Imaging Date: 12/07/2019 Stress Test with SPECT MPI: Positive Intermediate Risk Angina Classification Anginal Classification w/in 2 Weeks: Anginal Equivalent Dyspnea CAD Presentations: Stable angina. Other: Dyspnea on exertion Comorbidities/Risk Factors: Hypertension Dyslipidemia CONCLUSIONS Successful PTCA/KATHRYN mid LAD with a 2.5 x 24 Promus Synergy, post dilated proximally with a 3.0 x 8 NC Balloon;85%-->0%, no dissection. Successful PTCA/KATHRYN of proximal OM#1 with a 3.0 x 12 Promus Synergy, post dilated with a 3.0 x 8 NC B alloon; 85%-->0%, no dissection. RECOMMENDATIONS Highly recommend quitting all tobacco products Follow up with primary fitness studies teacher Risk factor modification ASA Indefinitley Plavix for at least 12 months Routine post interventional care Refer for Outpatient Cardiac Rehab Manual sheath removal per protocol Follow up with Dr. Murillo Successful Mynx Control closure of RFA> DESCRIPTION OF PROCEDURE The patient arrived to the procedure lab. The risks and benefits of the procedure as well as a full d escription of our services here and current unavailability of surgical backup were fully explained to the patient and/or their significant other prior to the catheterization. The Timeout was completed, verifying the correct patient and procedure. The patient's procedural site was prepped and draped in the usual fashion. Local anesthetic was given subcutaneously to right groin region with Lidocaine 2% Using a modified Seldinger technique,arterial access was obtained via the right femoral artery, a 5Fr sheath was inserted. Left Coronary Artery selective angiography was performed in multiple views usin g a 5 Fr. JL 5 catheter. Right Coronary Artery selective angiography was then performed in multiple v iews using a 5 Fr. 3DRC (Naun) catheter. Left Ventriculography was performed in DILLON projection us ing a 5 Fr. Pigtail catheter. LV to AO pullback pressures were then recorded.The images were reviewed and options discussed. A decision was then made to proceed with an Intervention, IVUS o r other adjunct procedure. Arterial sheath was exchanged for a 6 Fr Sheath. ebu 4.0 Guide catheter was inserted and engaged into the LCA. bmw Guide wire was advanced to the LAD. emerge 2.0 x 12 Balloon catheter was advanced a cross lesion in the LAD, mid. PTCA balloon inflated at 6 atms for 9 secs. PTCA balloon inflated at 6 atms for 10 secs. Angiogram performed post balloon dilatation. synergy 2.50 x 24 Drug Eluting stent w as advanced across the lesion in the LAD, mid. Angiogram performed post stent deployment. nc emerge 3 .00 x 8 Balloon catheter was advanced across lesion in the LAD, mid. Angiogram performed post balloon dilatation. bmw Guide wire was repositioned to the 1st OM bmw Guide wire was advanced to the Circumf flavio. synergy 3.00 x12 Drug Eluting stent was advanced across the lesion in the first obtuse marginal, proximal. Angiogram performed post stent deployment. nc emerge 3.00 x 8 Balloon catheter was inserte d post stent. Angiogram performed post balloon dilatation. Contrast was injected through the sheath and the Right Iliac and Femoral artery were assessed for possible closure device. The art erial sheath was pulled and a Mynx closure device was deployed for hemostasis INTERVENTION INFORMATION LESION SITE: LAD (Mid) Lesion Complexity: High/C, lesion at bifurcation: No, thrombus present: No, lesion length: 24 mm, cul prit lesion: Yes Pre Stenosis: 85 % Pre intervention YUDELKA flow: 3 PROCEDURE: Drug Eluting Stent with pre and post dilatation Post Stenosis: 0 % Post intervention YUDELKA flow: 3 Lesion Devices: Medtronic 6 Fr EBU4.0 100cm Guide Catheter Ahuja .014 [employer] Straight 190cm Sudheer Sci EMERGE MR 2.00x12 BALLOON Sudheer Sci Synergy MR KATHRYN 2.50x24 Sudheer Sci NC EMERGE MR 3.00x08 BALLOON LESION SITE: 1st OM (Proximal) Lesion Complexity: Non-High/Non-C, lesion at bifurcation: No, lesion length: 12 mm, culprit lesion: N o Pre Stenosis: 85 % Pre intervention YUDELKA flow: 3 PROCEDURE: Drug Eluting Stent with post dilatation Post Stenosis: 0 % Post intervention YUDELKA flow: 3 Lesion Devices: Medtronic 6 Fr EBU4.0 100cm Guide Catheter Sudheer Sci NC EMERGE MR 3.00x08 BALLOON Ahuja .014 [employer] Straight 190cm Sudheer Sci Synergy MR KATHRYN 3.00x12 COMPLICATIONS No Complications PROCEDURE MEDICATIONS Versed 1 mg IV Oxygen: 2 L/min via nasal cannula Heparin 6000 unit(s) IV 12/14/2019 09:25:43 Nitro 200 mcg IC 12/14/2019 09:27:39 Nitro 200 mcg IC 12/14/2019 09:27:39 Nitro 200 mcg IC 12/14/2019 09:32:03 Nitro 200 mcg IC 12/14/2019 09:39:18 SUMMARY OF HEMODYNAMIC DATA Time AIR REST ECG 08:29:46 AO 163/96 (122) SA 09:09:38 AO 159/87 (117) 09:12:41 LV 173/9, 21 09:21:07 LV 158/8, 16 09:21:21 LV 162/2, 21 09:22:03 LV 169/4, 23 09:22:09 LVp 172/8, 25 09:22:14 AOp 170/94 (124) 09:22:19 Signed By Forrest Menendez MD On 12/14/2019 10:15:06 Forrest Menendez MD
--- NOTE | 2019-12-14 10:38 | EKG12_ITS ---
Test Reason : AM EKG Blood Pressure : / mmHG Vent. Rate : 061 BPM Atrial Rate : 061 BPM P-R Int : 162 ms QRS Dur : 120 ms QT Int : 488 ms P-R-T Axes : 033 -52 158 degrees QTc Int : 491 ms Sinus rhythm with occasional Premature ventricular complexes Left axis deviation Left ventricular hypertrophy with QRS widening ST & T wave abnormality, consider lateral ischemia Abnormal ECG When compared with ECG of 14-DEC-2019 10:36, MANUAL COMPARISON REQUIRED, DATA IS UNCONFIRMED Confirmed by ABRAM DELAROSA ([id number]), marketing editor MARY ANN VELA ([id number]) on 12/18/2019 1:30:58 PM Referred By: Osmar Murillo Confirmed By:ABRAM DELAROSA
[2019-12-14 10:56] LABS: ACT Activated Clotting Time 191 sec (74-137)
[2019-12-14] MEDS: 0.9% Normal Saline 1,000 ML 150 ML IV (11:28)
--- NOTE | 2019-12-14 13:07 | CRPH1.INSTRU ---
General Education CAD and cardiac anatomy and function:: Patient communicates acknowledgment Explanation of diagnoses and procedures:: Patient communicates acknowledgment Sign/Symptoms of PR:: Patient communicates acknowledgment Antiplatelet therapy: Patient communicates acknowledgment Proper use of NTG-SL: Not instructed Emergency procedures and activation of EMS: Patient communicates acknowledgment Compliance of all prescribed medications: Patient communicates acknowledgment Smoking Patient Nicotine/Smoking Risk Factors Are:: Never smoked Nicotine/Smoking Response Code:: Not instructed Dyslipidemia Dyslipidemia Response Code:: Patient communicates acknowledgment Overweight/Obesity Patient Overweight/Obesity Risk Factors Are:: Obesity - > or = 30 Recommendations Include:: Weight loss of 5-10%, Reduced calorie diet, Exercise 5-7 times/week Overweight/Obesity:: Patient communicates acknowledgment Hypertension Hypertension:: Patient communicates acknowledgment Heart Disease Heart Disease Response Code:: Patient communicates acknowledgment Diabetes Diabetes:: Patient communicates acknowledgment Metabolic Syndrome Metabolic Syndrome Response Code:: Patient communicates acknowledgment Sedentary Sedentary Response Code:: Patient communicates acknowledgment Stress Stress Response Code:: Patient communicates acknowledgment
--- NOTE | 2019-12-14 13:08 | CRPHASE1_ITS ---
Patient Communication PHII Cardiac Rehab Discussed with Patient:: Yes Guide to Cardiac Rehab Given to Patient:: Yes - pt chooses [facility] Cardiac Rehab Facility Choice List Given to Patient:: Yes Choice Program [facility] CR PHII:: Communication Given to CR, Refer to [facility]:: Forrest Menendez Phase II Cardiac Rehab:: Yes Sessions:: 36 sessions - 3 days/wk, 12 weeks Risk Factors/Lifestyle Smoking Status: Never smoker Hx Obesity: Yes Height: 5 ft Weight:: 94.801 kg BMI: 40.8 Family History: Family History (Last Reviewed 11/25/19 @ 14:59 by Osmar Murillo MD) Father Cancer Mother Heart disease Phase I Education Given On:: [place], Nutrition, Antiplatelet medication, CHF, Smoking cessation, Diabetes - Type I, Diabetes - Type II Issues Affecting Care:: None Knowledge of Condition:: Yes Hospital Course Cardiac Cath Date:: 12/14/19 Cardiac Rehabilitation Info Cardiac Rehabilitation Program Information: Cardiac Rehabilitation is important for patients like you who are recovering from a heart problem. Cardiac rehabilitation programs are recognized as integral to the continued care of the patient with coronary heart disease. The cardiac rehabilitation program is designed to optimize a patient's physical, psychological, and social functioning. Health care transitions nurse work in cardiac rehabilitation programs and assist you with getting the treatments you need to get stronger and healthier - like exercise, healthy eating habits, and medications. Cardiac rehabilitation has been show to help people with heart problems live longer and have better life enjoyment than people who do not go to cardiac rehabilitation. Please contact the Cardiac Rehabilitation Program at [facility] at in two weeks if you have not heard from them.
[2019-12-14] MEDS: Timolol 0.25% 5ML OPTH.BTL 1 DRP EACH EYE (21:11)
[2019-12-14] MEDS: Carvedilol 6.25 MG Tablet PO (21:11)
[2019-12-14] MEDS: Pravastatin 40 MG Tablet PO (21:11)
[2019-12-14] MEDS: Multivitamin (Healthy Eyes) Capsule 1 CAP PO (21:11)
[2019-12-14] MEDS: Latanoprost 0.005% 1 Bottle 1 DRP OPHTHALMIC (21:12)
[2019-12-15] VITALS (12 sets, daily range): BP systolic 95–147; BP diastolic 44–76; PULSE 63–80; RESP 12–20; TEMP 36.1–36.4; O2SAT 93–100
[2019-12-15] MEDS: 0.9% Saline Lock 10 ML Syringe IV (04:23)
[2019-12-15 04:43] LABS: Hematocrit 39.2 % (37-47); Hemoglobin 12.7 g/dL (12.0-15.0); Mean Corp Hgb Conc 32.4 g/dL (32-36); Mean Corpuscular Hgb 29.3 pg (27.0-32.0); Mean Corpuscular Volume 90.3 fL (81-99); Mean Platelet Vol. 10.4 fl (6.2-12.0); Platelet Count 172 K/mm3 (150-450); RBC Distribution Width CV 12.3 % (11.6-14.6); Red Blood Count 4.34 M/mm3 (4.2-5.4); White Blood Count 7.9 K/mm3 (4.4-11.0)
[2019-12-15 05:02] LABS: ALB/GLOB Ratio 1.1 RATIO (0.9-2.4); AST(SGOT) 15 U/L (15-37); Alanine Aminotransfer ALT/SGPT 16 U/L (13-56); Albumin, Serum 3.2 g/dL (3.2-5.0); Alkaline Phosphatase 90 U/L (45-117); Anion Gap 3 (5-15); BUN 21 mg/dL (7-18); BUN/Creat Ratio 25.4 RATIO (10-20); Calcium,Total 8.4 mg/dL (8.5-10.1); Chloride 108 mmol/L (98-107); Cholesterol 137 mg/dL (200); Creatinine, Serum 0.83 mg/dL (0.55-1.02); EST Glomerular Filtration Rate 70 mL/min (>60); Est Glom Filt Rate - Afr Amer 85 mL/min (>60); Estimated Creatinine Clearance 38.18 ml/min; Globulin 2.9 g/dL (2.2-4.2); Glucose 93 mg/dL (74-106); High Density Lipoprotein 62 mg/dL; Potassium 3.7 mmol/L (3.5-5.1); Protein, Total 6.1 g/dL (6.4-8.2); Sodium Level 141 mmol/L (136-145); Triglycerides 70 mg/dL; Very Low Density Lipoprotein 14 mg/dL (5-40)
--- NOTE | 2019-12-15 07:56 | PCM.PN.CARD ---
Subjectve: Patient seen and evaluated. Appears to be doing well. Uneventful night. Objective: Vital Signs Temp Pulse Resp BP Pulse Ox 96.9 F L 76 12 127/45 H 97 12/15/19 04:00 12/15/19 07:00 12/15/19 07:00 12/15/19 07:00 12/15/19 07:02 Oxygen Flow Rate (L/min) 2 Oxygen Delivery Method Nasal Cannula Weight: 220 lb 14.451 oz Body Mass Index (BMI) 98.1 Intake and Output for Last 24 Hours 12/13/19 12/14/19 12/15/19 23:59 23:59 23:59 Intake Total 1540 / 1540 360 / 360 Output Total 200 / 200 Balance 1340 / 1340 360 / 360 General: Awake, Alert, Oriented x 3 HEENT: PERRL, EOMI, Sclera Non Icteric Neck: Supple, Good ROM, No Lymph Node Enlargement Lungs: Clear to auscultation Cardiovascular: Regular Rhythm, Normal S1, Normal S2, No Murmurs, No Rubs, No Gallops Vascular: No Carotid Bruits, Normal Femoral Pulses, Normal Radial Pulses, Normal Dorsalis Pedal Pulse, Normal Posterior Tibial Pulses Abdomen: Bowel Sounds Present, Soft, Non Tender, No HSM, No Organomegaly Extremities: No Cyanosis, No Clubbing, No edema Musculoskeletal: No Erythema Skin: No Rashes Neurological: No Focal Motor or Sensory Deficit 12/15/19 04:20: WBC 7.9, RBC 4.34, Hgb 12.7, Hct 39.2, MCV 90.3, MCH 29.3, MCHC 32.4, Plt Count 172, MPV 10.4 12/15/19 04:20: Sodium 141, Potassium 3.7, Chloride 108 H, Carbon Dioxide 30.0, Anion Gap 3 L, BUN 21 H, Creatinine 0.83, Est GFR (MDRD) Af Amer 85, Est GFR (MDRD) Non-Af 70, BUN/Creatinine Ratio 25.4 H, Glucose 93, Calcium 8.4 L, Total Bilirubin 0.60, Triglycerides 70, Cholesterol 137, LDL Cholesterol 61, VLDL Cholesterol 14, HDL Cholesterol 62 Rhythm: EKG: ECHO: Stress Test: Cardiac Cath: PCI: CT Surgery: Holter monitor: EPS: PPM: CXR: Chest CT Scan: Medical Necessity - Tobacco Use Smoking Status: Never smoker Assessment/Plan 1. Status post elective PCI of the left anterior descending artery as well as the left circumflex artery. Patient appears to be doing well overnight. No EKG changes and no arrhythmias. Groin site appears to be stable. Patient will be discharged for outpatient follow-up.
--- NOTE | 2019-12-15 07:58 | DCINST_ITS ---
Discharge Diet: Low fat/ Low Cholesterol Discharge Activity: Return to Normal Activity Call your doctor if your incision/area has: Increased Pain/ Swelling, Increased Redness, Foul Smelling Discharge, Swelling at the incision site Call your doctor if you observe: Fever of 101 or Higher Additional Dressing/Incision Instructions:: Keep the dressing (bandage) on until the next morning. You may then shower, but do not take a tub bath for 5 days after your test. It is normal to have some tenderness and discomfort at the puncture site. Sometimes bruising also occurs. However, if pain, numbness, or coldness occurs below the puncture site (in your leg, toes, arms or fingers) call your doctor at once. You may have a small, marble sized knot at the puncture site. This is normal. Do not rub it. It will go away in 4-6 weeks. Bleeding can occur from the area where the puncture was done. Blood may spurt or drip from the site. If blood spurts, apply pressure right away to stop bleeding and call 911. Although rare, bleeding into the tissue (hematoma) can also occur. If this happens, a large, firm area goose egg under the skin will appear. If any of these occur, lie down as flat as you can and have someone apply firm pressure to the cath site with a gauze pad or a clean washcloth for 10-15 minutes. Call 911 or go to the Emergency Department. Allergies/Adverse Reactions: Allergies tramadol HCl [From Ultra] Adverse Reaction (Verified 11/25/19 12:46) Vomiting Medications to take at Discharge Pravastatin [Pravachol] 40 mg PO QHS 08/18/13 Timolol 0.25% [Timoptic] 1 drp EACH EYE QHS 08/18/13 Travoprost 0.004% [Travatan-Z 0.004% Eye Drop] 1 drp EACH EYE QHS 08/18/13 Vit A/Vit C/Vit E/Zinc/Copper [Preservision Areds Softgel] 2 tab PO BID 08/18/13 Ascorbic Acid [Vitamin C] 500 mg PO DAILY@0800 12/21/17 Losartan Potassium [Cozaar] 100 mg PO DAILY 12/21/17 Methenamine 1 gm MC DAILY 12/21/17 Tolterodine Tartrate [Detrol] 1 mg PO BID 12/21/17 Ergocalciferol [Vitamin D] 50,000 unit PO Q30D 09/19/18 furosemide 40 mg tablet 40 mg PO DAILY #90 tab 11/25/19 latanoprost 0.005 % eye drops 1 drop OPHTHALMIC DAILY 11/25/19 clopidogrel 75 mg tablet 75 mg PO DAILY #30 tab 12/10/19 Aspirin [Aspirin, Baby] 81 mg PO DAILY@0800 12/11/19 Orders to be completed after discharge: Phase II, Outpatient Cardiac Rehab Location: None Selected Primary Care Physician: Chris Mendez Chi, MD [Primary Care Provider] - Test Results: Test results from this visit will be discussed in further detail at your follow- up appointment, if applicable. Please Follow Up With: [facility]. they will call Proposed Discharge Date: 12/15/19 Cardiac Rehabilitation Info Cardiac Rehabilitation Program Information: Cardiac Rehabilitation is important for patients like you who are recovering from a heart problem. Cardiac rehabilitation programs are recognized as integral to the continued care of the patient with coronary heart disease. The cardiac rehabilitation program is designed to optimize a patient's physical, psychological, and social functioning. Health critical care physician work in cardiac rehabilitation programs and assist you with getting the treatments you need to get stronger and healthier - like exercise, healthy eating habits, and medications. Cardiac rehabilitation has been show to help people with heart problems live longer and have better life enjoyment than people who do not go to cardiac rehabilitation. Please contact the Cardiac Rehabilitation Program at [facility] at in two weeks if you have not heard from them.
[2019-12-15] MEDS: Aspirin 81 MG TAB.CHEW PO (08:57)
[2019-12-15] MEDS: Multivitamin (Healthy Eyes) Capsule 1 CAP PO (08:58)
[2019-12-15] MEDS: Losartan Potassium 100 MG Tablet PO (08:58)
[2019-12-15] MEDS: Ascorbic Acid 500 MG Tablet PO (08:58)
[2019-12-15] MEDS: Carvedilol 6.25 MG Tablet PO (08:58)
[2019-12-15] MEDS: Methenamine Hippurate 1 GM Tablet PO (08:59)
[2019-12-15] MEDS: Clopidogrel Bisulfate 75 MG Tablet PO (08:59)
[2019-12-15] MEDS: Latanoprost 0.005% 1 Bottle 1 DRP OPHTHALMIC (08:59)
--- NOTE | 2019-12-15 10:00 | EKG12_ITS ---
Test Reason : POST STENT Blood Pressure : / mmHG Vent. Rate : 079 BPM Atrial Rate : 079 BPM P-R Int : 138 ms QRS Dur : 112 ms QT Int : 448 ms P-R-T Axes : 004 -59 126 degrees QTc Int : 513 ms Sinus rhythm with occasional Premature ventricular complexes Left axis deviation Incomplete left bundle branch block ST & T wave abnormality, consider lateral ischemia Prolonged QT Abnormal ECG When compared with ECG of 01-FEB-2017 07:09, Premature ventricular complexes are now Present Incomplete left bundle branch block is now Present T wave inversion now evident in Lateral leads QT has lengthened Confirmed by ABRAM DELAROSA ([id number]), assistant film editor MARY ANN VELA ([id number]) on 12/18/2019 1:30:06 PM Referred By: Osmar Murillo Confirmed By:ABRAM DELAROSA
== END 2019-12-15 10:30 | disposition home or self-care (01) ==
LOC: CLSP 08:05 → ICU 10:14
PROVIDERS: Internal Medicine Cardiovascular Disease; PCP Family Medicine Geriatric Medicine; Referring Provider Internal Medicine Cardiovascular Disease; Visit Provider Internal Medicine Cardiovascular Disease
DX: R06.09 Other forms of dyspnea (principal); I11.0 Hypertensive heart disease with heart failure; I50.20 Unspecified systolic (congestive) heart failure; E78.5 Hyperlipidemia, unspecified; E66.9 Obesity, unspecified; Z68.41 Body mass index [BMI] 40.0-44.9, adult; G47.33 Obstructive sleep apnea (adult) (pediatric); M19.90 Unspecified osteoarthritis, unspecified site; Z79.899 Other long term (current) drug therapy
CPT/HCPCS: 36415; 80048; 80053; 80061; 85025; 85027; 85347; 92928; 93005; 93458; 99152; 99153; J7030; J7040; Q9967; A4216; C1725; C1769; C1874; C1887; C9600

== ENCOUNTER → 2020-01-07 | Outpatient (CLI) | payer MEDICARE, SELFPAY ==
[2019-12-14 10:15] VITALS: BMI 98.1
[2019-12-14 13:10] VITALS: BMI 40.8
[2020-01-01 13:27] VITALS: BMI 43.1
--- NOTE | 2020-01-07 10:02 | CR.ITP_ITS ---
Diagnosis - General Information Admitting Diagnosis: PCI with stent, HF < 35% Personal Learning Style:: Audio/Visual, Demonstration, Group, Individual Preference, Written Barriers to Learning: Vision Impairment - wears glasses Stage of change r/t lifestyle modifications:: Action Gave educational material for:: Treating Heart Disease, Emotions & Heart Disease, Stress Management & Relaxation, Sleep Disorders & Heart Disease, How The Heart Works, What it means to have Heart Disease, How Coronary Artery Disease is Diagnosed, Heart Procedures, What Heart Medications Do, Risk Factors & Modifications, Living an Active Life, Nutrition - Education/Goals Individual Counseling: Initial Assessment: High Blood Pressure, Overweight/Obesity, B. Waist Circumference >35/Females >40/Males, Hypertension, Sedentary Lifestyle Cardiac Rehabilitation Goals: 1. Maintain the individual as the primary focus of care. 2. To improve the patient's quality of life. 3. Identification of cardiac risk factors and provide cardiac risk factor management. 4. Enhance the psychosocial status of the patient. 5. Reconditioning enough to allow the patient to resume customary activities. 6. Control symptoms of cardiac disease Personal Goals: Initial Assessment: Improve energy level, Participate in home exercise program, Improve knowledge of cardiac disease, Improve muscle strength and endurance, Improve diet and eating habits (eat healthier), Control risk factors (learn risk factor modification) Scale for measuring improvement of personal goals: Enter appropriate number in Comments. 2 = Unchanged. 3 = Slightly Better. 4 = Moderate Improvement. 5 = Met my Goal - Diagnosis & Disease Process Outcomes/Goals: Pt IDs own risk factors & lifestyle modifications by Session 10, Verbalizes symptoms of angina & response by session 3., Pt independently manages, Other Additional Outcomes/Goals: Plan/Interventions: Assist Pt to ID & engage in lifestyle modification to reduce CVD risk, Instruct on individual risk factors, Review symptoms of angina & emergency actions, Review secondary diagnosis & identify educational needs., Other see comment - Safety Referral to Physical Therapy: No - Sees Dr. Jordan for low back pain and injections Referral to [facility] Case Management: No Fall Risk Assessed:: Yes Assistive Devices:: Walker Exercise - Initial Assessment - Visit Date of Eval: 01/07/20 Mets: Pre-: >3 METS for 30 minutes by discharge - Physician Prescribed Exercise Modalities: Treadmill, Biodyne, Rower, Airdyne, NuStep, SciFit Frequency: 3x/week for 12 weeks [36 sessions] Intensity: 60-80% of age predicted maximum heart rate reserve - Outcomes & Goals Goals:: Verbalizes understanding of THR, RPE & goal METS by session 6, Documents in home exercise log/reports 30 min aerobic 5 day/wk by DC, Demonstrates accurate pulse taking by DC, Other additional outcome/goals: see below - Intervention & Plan Exercise Program Goals: Instruct on personal THR & RPE, Instruct on MET level & personal MET goal, Show patient to take own pulse /validate performance until accurate, Instruct on home exercise, Other additional plan/int - Physical Activity Home Exercise Physical Activity - Home Exercise: Safe Exercise, Warm-up, Self-monitoring, Cool-Down, Home Exercise > 30 min Daily, Sitting Time <3 hours/daily - Outcomes & Goals Outcomes/Goals: Demonstrates correct Warm-up/exercise Cool-Down (S3) if = 2.5 METs, Verbalizes symptoms of exercise intolerance by Session 3 (S3), Demonstrate safe equipment use (S3) & follows exercise prescrition (6), Other: See below - Intervention & Plan Plan/Intervention: Instruct warm-up & cool-down if exercising at > 2 METs, Instruct on symptoms of exercise intolerance & actions to take, Instruct & monitor on saf, Assess intial functional capacity & safety risk, Other See below Nutrition - Initial Assessment - Program Goals Nutrition Program Goals: LDL <100 optimal. 100 - 129 Near optimal. 130 - 159 Borderline High. 160 - 189 High. Total Cholesterol <200 desirable. 200 - 239 Borderline High. >/= 240 High. HDL < 40 Low >/=60 High. Triglycerides <150 desirable. <199 optimal. VlDL 5 - 40. HgbA1C <7%. BMI <25 Patient has diagnosis of Hyperlipidemia (ICD E78)?: Yes - Cholesterol/Lipids Triglycerides (mg/dL): 70 Total Cholesterol (mg/dL): 137 LDL Cholesterol (mg/dL): 61 HDL Cholesterol (mg/dL): 62 Lipid Medication: yes Determine presence & major risk factors that modify LDL goal: Cigarette smoking, Hypertension or hypertensive medication, Low HDL cholesterol <40 mg/dL*, Family history of premature CHD in Male < 55 years: female <65 yearsFa, Age men > 45 years; women >/= 55 years Outcomes/Goals: Pt IDs own risk factors & lifestyle modifications by Session 10, Verbalizes symptoms of angina & response by session 3., Pt independently manages, Other Additional Outcomes/Goals: Intervention/Plan: Advocate for lipid panel cholesterol medication if applicable, Instruct on personal lipid levels & lipid goals/NCEP guidelines, Instruct on cholesterol, Other additional plan/int Referral to dietitian:: Yes - Diabetes (Other Core Measures) Diabetes Type: Not Applicable - Weight Mgt (Other Care) Not Applicable: Yes Height: 5 ft Weight:: 209 lb BMI: 40.8 Diagnosis Overweight/Obesity BMI> 30% ICD-10 E66: Yes Diagnosis High BMI/Morbid Obesity BMI> 35% ICD-10 Z68: Yes Expected Body Weight: 159 lb - pt reports this number Outcomes/Goals: Pt sets, maintains & shows weight loss goal & trend during rehab, Other additional outcomes/goals Intervention/Plan: Instruct on ideal BMI & set weight loss goal w/patient, Assist pt to ID & incorporate diet changes for weight loss by S9, Refer to Structured Weight Loss program as appropriate, Encourage goal of using 250- 300dcal per session for weight loss, Other additional plan/interventions - Healthy Eating Habits Will attend diet classes:: Yes Outcomes/Goals:: Consume diet rich in vegs,fruits,whole grain/high fiber,fish,lean meat, Limit sat/trans fats,cholesterol & added salts & sugars, Other additional outcome/goals: Intervention/Plan:: Assess current eating habits, Other Additional plan/interventions - Education Gave educational materials for:: Healthy eating Medical - Initial Assessment - Visit Date of Eval: 01/07/20 - Medication Compliance Preventative Medication(s):: Aspirin, Clopidogrel/P2Y12 inhibit, Statin/lipid, ARB (Angiotensi Rcap) H/O mental health issues: depression, anxiety, or addiction?: Yes Doesn?t believe in the benefits of treatment?: Yes Believes medications are unnecessary or harmful?: No Has a concern about medication side effects?: No Expresses concern over the cost of medications?: No - states has tried various meds without success. Sees Dr. Mendez. Outcomes/Goals: Verbalizes medications,desired effect & common side effects @ DC, Pt self-reports following medication regimen, Keeps card in wallet w/medications listed by DC, Other additional outcome/goals: Comments:: Counselling numbers given. Interventions/plans: Instruct on medication effects & side effects, Review medication list w/patient every two weeks, Instruct importance of taking meds as ordered & assist problem solving, Other additional - Tobacco Use Tobacco Use: Non-smoker Do you use smokeless tobacco?: No - Hypertension Hypertension Diagnosis:: Hypertension ICD-10 I10 Resting Blood Pressure:: 140/82 [place] [employer] Hypertension Guidelines: [place] [employer] Hypertension Guidelines. Normal BP Less than 120/80. Elevated BP 120/80. Hypertension Stage 1: BP 130-139/80-89. Hypertesnion Stage 2: BP 140 or higher/90 or higher. Hypertension Crisis: BP higher than 180/120 Outcomes/Goals: Able to verbalize/achieve optimal blood pressure <130/80, Incorporates diet changes & exercise for blood pressure control by DC, Other additional outcomes/goals Interventions/plan: Instruct on optimal blood pressure, hypertension & medications, Instruct on effects of sodium, alcohol, stress, exercise &hypertension, Other additional plan/interventions - Tobacco Cessation Referral Smoking Cessation Referral:: No Individual Education/Counseling:: No Education Schedule Given:: Yes Psychosocial - Initial Assess - VIsit Date of Eval: 01/07/20 History of previous Mental disease:: Yes - depression History of Emotional Disorders: Depression Self-reported stressors: Other, Recent Illness Self-reported stressors Other/Comments:: gets down at times. - Target Goals Target Goals: Assess presence or absence of depression. Using a valid screening tool, maximizes coping skills. Positive support system - Psychosocial Test Tool Used:: Flakita Alvarez QOL Cardiac, PHQ-9 Questionnaire Self-reported stress:: no phq-9 Severity: Severity. 1-4 Minimal Depression. 5-9 Mild Depression. 10-14 Moderate Depression. 15-19 Moderately Sever Depression. 20-27 Severe Depression. Rule: See PHQ-9 Score: 15 - Referral to Behavioral Health PS - Interventions: Yes Referral to Behavioral Health if PHQ-9 score >9:, Yes Referral to Physician if PHQ-9 if score is 5-9:, Yes Attend Stress Management Classes, No Referral to [facility] - Outcomes/Goals: See list Psychosocial Outcomes/Goals:: ID's personal stressors & 2 strategies to manage stress by discharge, Other Additional outcome/goals: - Intervention/Plan: See List Interventions/Plan:: Assess stressors,coping strategies & signs of derpression on admission, Instruct/assist pt to develop coping & personal stress Mgt st rategies, Refer to Behavioral Health if appropriate, Refer to Physician if appropriate, Instruct patient to recognize signs & symptoms of depression, Instruct patient to recog, Other additional plan/intervention Patient Health Questionnaire Initial Assessment 1. Little interest or pleasure in doing things: Nearly every day 2. Feeling down, depressed, or hopeless: Several days 3. Trouble falling or staying asleep, or sleeping too much: Nearly every day 4. Feeling tired or having little energy: More than half the days 5. Poor appetite or overeating: Nearly every day 6. Feeling bad about yourself -- or that you are a failure or have let yourself or your family down: More than half the days 7. Trouble concentrating on things, such as reading the newspaper or watching television: Not at all 8. Moving or speaking so slowly that other people could have noticed. Or the opposite - being so fidgety or restless that you have been moving around a lot more than usual: Several days 9. Thoughts that you would be better off , or of hurting yourself in some way: Not at all How difficult have these problems made it for you to do your work, take care of things at home, or get along with other people?: Somewhat difficult Total Score: 15 FÉLIX-Q SV Test - Statements CAD is a disease of the arteries in the heart: I Don't Know Examples of risk factors for heart disease: True Angina is chest pain or discomfort: True The benefits of resistance training include: True Eating more meat and dairy products: False Anti-platelet medications such as aspirin are important: True The only effective way to manage stress: True An exercise warm-up slowly increases heart rate: True Prepared, processed foods usually have high sodium: True Depression is common after a heart attack: True The statin medications lower cholesterol: True To control blood pressure, lower the amount of sodium: True If someone gets chest discomfort during walking: I Don't Know Transfats are partially hydrogenated vegetable oils: False Sleep apnea that is not treated increases the risk: I Don't Know To control cholesterol, one should become a vegetarian: False Someone knows if he/she is exercising at the right level: I Don't Know Diabetes cannot be prevented with exercise & health eating: I Don't Know Stress is a large risk for heart attack: I Don't Know A diet that can help lower blood pressure is rich in: True - Total Score Total Correct Responses: 12 Self-Efficacy Initial Assessment We would like to know how confident you are in doing certain activities. Please select your confidence level for:: Select your confidence level for the following using the scale 1-10 where 1 is not at all confident and 10 is totally confident. Your score is the average of all 6 responses. Fatigue: How confident are you that you can keep the fatigue caused by your disease from interfering with the things you want to do? Select Number: 5 Physical Discomfort or Pain: How confident are you that you can keep the p hysical discomfort or pain of your disease from interfering with the things you want to do? Select Number: 5 Emotional Distress: How confident are you that you can keep the emotional distress caused by your disease from interfering with the things you want to do? Select Number: 5 Other Symptoms or Health Problems: How confident are you that you can keep other symptoms or health problems from interfering with the things you want to do? Select Number: 5 Different Tasks and Activities: How confident are you that you can do the different tasks and activities needed to manage your health condition so as to reduce your need to see a doctor? Select Number: 5 Medication: How confident are you that you can do things other than just taking medication to reduce how much your illness affects your everyday life? Select Number: 7 Total Score:: 5 Nutrition Survey - Nutrition Survey Instructions Scoring Instructions: Scoring is as follows: Yes = 1 points. No = 0 point. Patient score that is >/=12 is considered to be at potential nutritional risk and could benefit from a referral to a registered dietitian. - Nutrition Survey Initial Have you lost >10 lbs over the past 2 months without trying?: No Are you following a special diet at home for diabetes, low fat, or low salt?: No Are you interested in meeting with a dietitian for help understanding your diet?: Yes Do you eat less than 3 meals a day?: Yes Do you eat fatty meats (francis, sausage, ribs, etc), fried foods, desserts, large amounts of salad dressings, margarine, butter, or cheese most days?: Yes Do you have food allergies? [Enter types in comment field]: No Do you eat in restaurants more than 3 times a week?: No Do you season food with salt, seasoning salt, or garlic salt?: Yes Do you used canned, boxed, frozen meals, or soups, seasoning packets?: No Total Score:: 4
--- NOTE | 2020-01-07 10:17 | PCM.CR.HP2 ---
CR - History & Physical - General Arrival date:: 01/07/20 Arrival time:: 10:17 Date of Referral:: 12/14/19 Date of CR Evaluation:: 01/07/20 Referring Physician: Dr. Surjit Murillo Primary Diagnosis: PCI, EF <35% - History of Present Cardiac Event Onset Date: Enter Onset Date of cardiac illnesses in Comment field below Current stable Angina Pectoris:: Yes - some SOB, but less since stent and meds Acute Myocardial Infarction within 12 months:: No Coronary Artery Bypass Graft:: No Heart valve replacement or repair:: No PTCA or coronary stenting:: Yes - 12/14/19 Heart or Heart-Lung Transplant:: No Heart Failure EF <35%:: Yes Type of Symptoms:: SOB, dry cough Interventions with present event:: stress test and then echo and heart cath Were there any complications?: no - Medications Home Medications: Ambulatory Orders Medication Instructions Recorded Pravastatin [Pravachol] 40 mg PO QHS 08/18/13 Timolol 0.25% [Timoptic] 1 drp EACH EYE QHS 08/18/13 Travoprost 0.004% [Travatan-Z 1 drp EACH EYE QHS 08/18/13 0.004% Eye Drop] Vit A/Vit C/Vit E/Zinc/Copper 2 tab PO BID 08/18/13 [Preservision Areds Softgel] Ascorbic Acid [Vitamin C] 500 mg PO DAILY@0800 12/21/17 Losartan Potassium [Cozaar] 100 mg PO DAILY 12/21/17 Methenamine 1 gm MC DAILY 12/21/17 Ergocalciferol [Vitamin D] 50,000 unit PO Q30D 09/19/18 latanoprost 0.005 % eye drops 1 drp OPHTHALMIC DAILY 11/25/19 Aspirin [Aspirin, Baby] 81 mg PO DAILY@0800 12/11/19 clopidogrel 75 mg tablet 75 mg PO DAILY #90 tab 12/15/19 carvedilol 6.25 mg tablet 6.25 mg PO BID #180 tab 01/01/20 darifenacin 7.5 mg tablet,extended 7.5 mg PO DAILY 01/01/20 release 24 hr furosemide 40 mg tablet 40 mg PO DAILY PRN tab 01/01/20 - Allergies Allergies/Adverse Reactions: Allergies tramadol HCl [From [facility]] Adverse Reaction (Verified 01/01/20 13:27) Vomiting - Sleep Disorder Evaluation Hx of Sleep Apnea: Yes Do you snore loudly (louder than talking or can be heard through closed doors)?: Yes Do you often feel tired/ fatigued/ sleepy during daytime?: Yes Has anyone observed you stop breathing during sleep?: Yes - has sleep apnea device but doesn't always use it. 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 Ischemic cardiomyopathy (Chronic) I25.5 Essential (primary) hypertension (Chronic) I10 Hyperlipidemia (Chronic) E78.5 NEAL (obstructive sleep apnea) (Chronic) G47.33 BiPAP 17/13 cmH2O Cataract H26.9 GI bleed K92.2 Hypersomnia G47.10 Meniere disease H81.09 NEAL (obstructive sleep apnea) G47.33 Obesity E66.9 Osteoarthritis M19.90 Acute gastrointestinal ulcer with perforation K27.2 Acute renal injury (Resolved) N17.9 Acute respiratory failure (Resolved) J96.00 Cough R05 Duodenal ulcer due to Helicobacter pylori K26.9, B96.81 Helicobacter pylori infection A04.8 Hematoma T14.8XXA Hypoxia R09.02 Perforated duodenal ulcer K26.5 - Past Surgical History Surgical History: Past Surgical History (Last Reviewed 01/01/20 @ 14:11 by BEBA Larry) History of coronary artery stent placement (Resolved) Onset Date: 12/14/19 Z95.5 PCI-KATHRYN-Mid LAD with a 2.5 x 24 mm Promus Synergy and [id number] with a 3.0 x 12 mm Promus Synergy 12/14/2019 H/O tubal ligation Z98.51 1978 History of appendectomy Z98.890, Z90.49 1961 History of esophagogastroduodenoscopy (EGD) Z98.890 2017 History of hip replacement Z96.649 1996 Surgical History: appendectomy, total hip arthroplasty - Family History Summary Family History: Family History (Last Reviewed 01/01/20 @ 14:11 by BEBA Larry) Father Cancer Mother Heart disease Social History - Smoking History Smoking Status: Never smoker Hx Tobacco Use: No Hx Smoking Exposure: No - Alcohol Use Alcohol Usage: No - Substance Abuse Hx Substance Use: No - Occupation Occupation (List type of work in comments):: Retired - Hobbies, Recreation, Social Activities Hobbies: Sewing, Reading Recreational Activities: I am able to engage in all my recreational activities Social Environment - Status Marital Status: - Current Living Arrangements Living Environment:: Alone - Children How many children do you have?: 4 Do any of your children live nearby?: Yes - Safety Do you feel safe in your surroundings?: Yes - Assistance Do you need any assistance at home?: yes Review of Systems - Review of Systems Hints: Right click = Denies (Slash). Left click = Reports (Andreafski) Review of Present Symptoms: Reports: Shortness of Breath with Exertion, Fatigue, Appetite - Normal, Appetite - Special Diet, Sleep - Normal - doesn't sleep well. Not a new problem. Denies: Shortness of Breath at Rest, PVD, Operative Discomfort, Angina, Wound Healing, Dizziness/Lightheadedness, Heart Arrhythmia/Irregularities, Sexual Changes - Pain Is Patient Pain Free?: No Pain Location: back Pain Level: 9/10 Previous experience dealing with pain?: rest, spinal inj by dr Jordan. Risk Factor Assessment - Chief Complaint Chief Complaint: PCI, EF <35% - Vital Signs Pulse Ox: 93 - Pulse Pulse Rate: 69 Pulse Rhythm: Regular - Hypertension How long have you been treated?: 40 years On medication(s)?: yes Blood Pressure Sitting - Right Arm: 140/82 Blood Pressure Sitting - Left Arm: 140/90 - Blood Cholesterol/Lipids Total Cholesterol (mg/dL) Goal = less than 200 mg/dL: 137 HDL Cholesterol (mg/dL) Goal = less than 40 mg/dL: 62 LDL Cholesterol (mg/dL) Goal = less than 70 mg/dL: 61 Triglycerides (mg/dL) Goal = less than 150 mg/dL: 70 - Obesity Height: 5 ft Weight:: 209 lb Weight in Pounds: 209.0 lbs Body Mass Index (BMI): 40.8 Desired Body Weight: 160 Realistic Weight Goal (Loss of 1-2 lbs/week): 185 Nutritional Referral for Obesity: Yes - Physical Inactivity Physical Inactivity: None - Risk Stratification Risk Guidelines: Lowest Risk: Risk Factor for Smoking, Risk Factor for Dyslipidemia, Moderate Risk: Risk Factor for Diabetes, Risk Factor for Hypertension, Highest Risk: Risk Factor for Obesity, Risk Factor for Sedentary Lifestyle, Risk Factor for Depression - For Smoking Smoking Risk Guidelines: Smoking Low Risk: None or quit greater than 6 months ago. Smoking Moderate Risk: Smoker or quit 6 months or less ago. Smoking High Risk: Smoker - For Dyslipidemia Dyslipidemia Risk Guidelines: Low Risk: Moderate Risk: High Risk: 15-25% fat 25.1-29% fat >/= 30% fat. <7% sat fat 7-9% sat fat >9% sat fat. <150 mg chol 150-299 mg chol >/= 300 mg chol. LDL <100 LDL 100-129 LDL >/= 130. Chol/HDL ratio <5.0 Chol/HDL ratio 5.0-6.0 Chol/HDL ratio >6.0. Triglycerides <100 Triglycerides 100-149 Triglycerides >/= 150 - For Diabetes Mellitus Diabetes Risk Guidelines: Diabetes Low Risk: HgA1c <6.5% and/or FBG <120. Diabetes Moderate Risk: HgA1c 6.6-7.9% and/or FBG 120-180. Diabetes High Risk: HgA1c >/= 8% and/or FBG >180 - For Obesity/Overweight Obesity/Overweight Risk Guidelines: Obesity Low Risk: BMI <25.0. Obesity Moderate Risk: BMI 25-29.9. Obesity High Risk: BMI >/= 30.0 - For Hypertension Hypertension Risk Guidelines: Hypertension Low Risk: Systolic <120 and Diastolic <80. Hypertension Moderate Risk: Systolic 120-139 and Diastolic 80-89. Hypertension High Risk: Systolic >/= 140 and Diastolic >/= 90 - For Sedentary Lifestyle Sedentary Lifestyle Risk Guidelines: Sedentary Lifestyle Low Risk: >/= 1,500 kcal/week. Sedentary Lifestyle Moderate Risk: 700-1,499 kcal/week. Sedentary Lifestyle High Risk: < 700 kcal/week - For Depression Depression Risk Guidelines: Depression Low Risk: Not clinically depressed. Depression Moderate Risk: Mildly depressed. Depression High Risk: Clinically depressed - Family History Family History: Family History (Last Reviewed 01/01/20 @ 14:11 by BEBA Larry) Father Cancer Mother Heart disease Motivation - Motivation to Participate On a scale of 1 to 10, how prepared are you to commit to attending program?: 6
[2020-01-07 10:52] VITALS: BP 140/82; BMI 40.8
[2020-01-07 11:10] VITALS: BP 140/82; BP 140/90; PULSE 69; O2SAT 93; BMI 40.8
== END | disposition home or self-care (01) ==
LOC: CR 09:35
PROVIDERS: PCP Family Medicine Geriatric Medicine; Referring Provider Internal Medicine Cardiovascular Disease; Visit Provider Internal Medicine Cardiovascular Disease
DX: Z95.5 Presence of coronary angioplasty implant and graft (principal)

== ENCOUNTER 2020-01-15 10:15 | Outpatient (RCR) | payer MEDICARE, SELFPAY ==
[2020-01-07 10:52] VITALS: BMI 40.8
[2020-01-07 11:10] VITALS: BMI 40.8
== END 2020-02-02 23:59 ==
LOC: CR 10:15
PROVIDERS: PCP Family Medicine Geriatric Medicine; Referring Provider Internal Medicine Cardiovascular Disease; Visit Provider Internal Medicine Cardiovascular Disease
DX: E78.5 Hyperlipidemia, unspecified (principal); I10 Essential (primary) hypertension; I25.10 Atherosclerotic heart disease of native coronary artery without angina pectoris; I25.5 Ischemic cardiomyopathy
CPT/HCPCS: 93798

== ENCOUNTER 2020-02-23 02:06 | Emergency (ER) | payer MEDICARE, SELFPAY ==
[2020-01-07 10:52] VITALS: BMI 40.8
[2020-01-07 11:10] VITALS: BMI 40.8
[2020-02-23 02:10] VITALS: BP 183/113; PULSE 86; RESP 17; TEMP 36.6; O2SAT 95; BMI 44.4
[2020-02-23] MEDS: Mixture 30 ML Bottle 5 ML TOPICAL (02:20)
[2020-02-23 02:36] LABS: Absolute Lymphocyte Count 1.32 X10^3/uL (0.83-4.51); Absolute Neutrophil Count 4.4 X10^3/uL (2.0-7.7); Basophil# 0.02 X10^3/uL; Basophil% 0.3 % (0-1); Eosinophil# 0.28 X10^3/uL; Eosinophils% 4.2 % (0-5); Hematocrit 43.9 % (37-47); Hemoglobin 14.2 g/dL (12.0-15.0); Lymphocyte # 1.32 X10^3/ul (4.0); Lymphocyte % 19.8 % (19-41); Mean Corp Hgb Conc 32.3 g/dL (32-36); Mean Corpuscular Hgb 28.6 pg (27.0-32.0); Mean Corpuscular Volume 88.5 fL (81-99); Mean Platelet Vol. 10.2 fl (6.2-12.0); Monocyte# 0.67 X10^3/uL; NRBC Flagged by Analyzer 0 % (0-5); Neutrophil # 4.38 X10^3/uL (2.7-7.7); Neutrophil % 65.6 % (47-70); Platelet Count 193 K/mm3 (150-450); RBC Distribution Width CV 12.5 % (11.6-14.6); RBC Distribution Width SD 40.1 fl (35.1-43.9); Red Blood Count 4.96 M/mm3 (4.2-5.4); White Blood Count 6.7 K/mm3 (4.4-11.0)
--- NOTE | 2020-02-23 03:15 | ED.VIS.GEN ---
History of Present Illness Chief Complaint: Nosebleed Informant: Patient Onset: Hours - 1 Context: Sudden Onset - Without foreign body or injury/trauma Timing: Continuous Quality: brisk bleeding Location: right nose Current Severity: Severe Maximum Severity: Severe Worsened by: nothing Relieved by: pressure somewhat Associated Symptoms: no systemic sx Narrative: Patient with severe right-sided epistaxis that started an hour prior to arrival. She called EMS after trying to get it to stop for 15 minutes unsuccessfully. They placed Afrin nasal spray in her nose and helped her to hold pressure during transport. Patient denies any systemic symptoms like syncope, lightheadedness, chest pain. She has had nosebleeds in the past, nothing this severe. She is on aspirin and Plavix for cardiac stent, no anticoagulants. No recent illnesses. - Past Medical History (1) Atherosclerosis of coronary artery of [place] heart without angina pectoris Status: Chronic (2) Essential (primary) hypertension Status: Chronic (3) Hyperlipidemia Status: Chronic (4) Ischemic cardiomyopathy Status: Chronic (5) NEAL (obstructive sleep apnea) Status: Chronic Comment: BiPAP 17/13 cmH2O Past Medical History - Allergies and Home Meds Allergies/Adverse Reactions: Allergies tramadol HCl [From [facility]] Adverse Reaction (Verified 01/01/20 13:27) Vomiting Primary Care Physician: Chris Mendez Chi, MD [Primary Care Provider] - Surgical History: angioplasty - cardiac stent, appendectomy, total hip arthroplasty Lives: Alone Smoking Status: Never smoker - Family History Paternal Family History: Family History (Last Reviewed 01/01/20 @ 14:11 by BEBA Larry) Father Cancer Mother Heart disease Family History: Reports: No pertinent history Review of Systems General: Denies: Chills, Fever, Malaise, Sweats Eyes: Denies: Visual changes - bilaterally, Diplopia ENT: Reports: - - right naris epistaxis. , - - swallowing small amt blood.. Denies: Bilateral ear pain, Sore throat Cardiovascular: Denies: Chest pain, Palpitations Respiratory: Denies: Dyspnea, Cough Gastrointestinal: Denies: Abdominal pain, Nausea, Vomiting, Diarrhea, Melena, Hematochezia Genitourinary: Denies: Dysuria, Hematuria, Frequency Musculoskeletal: Denies: Neck pain, Back pain Skin: Denies: Rash, Wounds Neurological: Denies: Headache, Weakness, Numbness Physical Exam Vital Signs/Narrative: Vital Signs Temp Pulse Resp BP Pulse Ox 02/23/20 02:10 97.9 F 86 17 183/113 H 95 Inital Vital Signs reviewed: Yes General: Well nourished, Well developed, Obese, Acute Distress - mild due to active bleeding from nose Head: Normocephalic, Atraumatic Eyes: Perrl, EOMI ENT: - - Significant nonpulsatile active bleeding from the right naris. Blood in the posterior oropharynx, difficult to evaluate due to mellampati 4 but does not appear to have acute active bleeding there.. Negative for: Sinus tenderness Neck: Supple, Nontender Cardiovascular: Regular rate, Regular rhythm. Negative for: Tachycardia Respiratory: No distress, CTA bilaterally, Chest nontender Abdomen: Soft, Nontender, Nondistended, Normal bowel sounds Back: Normal Inspection, - - FROM Extremities: Nontender, No edema Skin: Normal color, No rash, No Trauma Neurological: Alert, Oriented x3, Cranial nerves II-XII grossly intact, Normal Strength, Normal Sensation Psychological: Normal Mood, - - mildly anxious Diagnostic/Tx/Re-eval Laboratory Tests 02/23/20 Range/Units 02:25 WBC 6.7 (4.4-11.0) K/mm3 RBC 4.96 (4.2-5.4) M/mm3 Hgb 14.2 (12.0-15.0) g/dL Hct 43.9 (37-47) % MCV 88.5 (81-99) fL MCH 28.6 (27.0-32.0) pg MCHC 32.3 (32-36) g/dL RDW Std Deviation 40.1 (35.1-43.9) fl RDW Coeff of Sincere 12.5 (11.6-14.6) % Plt Count 193 (150-450) K/mm3 MPV 10.2 (6.2-12.0) fl Immature Gran % (Auto) 0.100 (0.0-0.9) % Neut % (Auto) 65.6 (47-70) % Lymph % (Auto) 19.8 (19-41) % Harding % (Auto) 10.0 (0-10) % Eos % (Auto) 4.2 (0-5) % Baso % (Auto) 0.3 (0-1) % Absolute Neuts (auto) 4.4 (2.0-7.7) X10^3/uL Absolute Lymphs (auto) 1.32 (0.83-4.51) X10^3/uL Nucleated RBC % 0 (0-5) % - Medical Decision Making Patient had received Afrin nasal spray to the right naris by EMS prior to arrival with no change or effect. Holding tight pressure seem to slow the bleeding, but it did not stop and evaluation of the right side of the nose was virtually impossible due to the amount of blood. Therefore, a packing was emergently placed. See the procedure note. This did result in hemostasis. Blood counts are stable, her blood pressure was high initially but on repeat prior to any treatment her systolic is in the 150s and I think she is stable to be discharged home to follow-up with ENT in 2 days. All questions answered at the bedside, she is comfortable with that plan. Unless further advised after she follows up, I would continue her aspirin and Plavix right now since she has a cardiac stent. 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 Then I immediately using a syringe-attached aerosolizer, and aerosolized [address] Courtney post into the right nostril which she inhaled back into her posterior oropharynx. This was immediately followed by a 3.5 cm Merocel packing, which was then gently inflated with sterile water. I placed a clamp on her nose but she continued to bleed through this despite this treatment so it was removed, she cleared her nostril again, and in its place I inserted a 5.5 cm rapid Rhino with airway. This gradually was inflated with a total of 8 cc of water, and gradually resulted in hemostasis. Since increasing pressure did not seem to immediately result in abrupt hemostasis, I suspect she has a very anterior bleed that the hemostatic gel from the packing treated in a delayed fashion. ED Disposition - Plan for ED Patient: Disposition: Home or Assisted Living Diagnosis: Acute anterior epistaxis Instructions: Nosebleed Referrals: Chris Mendez Chi, MD [Primary Care Provider] - Antonio Amezcua MD [STAFF PHYSICIAN] - 02/25/20 (call for appt)
[2020-02-23 03:30] VITALS: BP 153/106; PULSE 79; RESP 17; O2SAT 95
== END 2020-02-23 03:54 | disposition home or self-care (01) ==
PROVIDERS: Emergency Provider Emergency Medicine; PCP Family Medicine Geriatric Medicine
DX: R04.0 Epistaxis (principal); I25.10 Atherosclerotic heart disease of native coronary artery without angina pectoris; I10 Essential (primary) hypertension; E78.5 Hyperlipidemia, unspecified; E66.9 Obesity, unspecified; Z95.5 Presence of coronary angioplasty implant and graft; Z79.82 Long term (current) use of aspirin; Z79.02 Long term (current) use of antithrombotics/antiplatelets; Z79.899 Other long term (current) drug therapy
CPT/HCPCS: 30903; 36415; 85025; 99284

== ENCOUNTER 2020-03-06 23:27 | Emergency (ER) | payer MEDICARE, SELFPAY ==
[2020-01-07 10:52] VITALS: BMI 40.8
[2020-03-06 23:28] VITALS: BP 127/116; PULSE 83; RESP 16; TEMP 36.4; O2SAT 93; BMI 43.0
[2020-03-06 23:30] VITALS: BP 148/96
[2020-03-07 01:00] LABS: Absolute Neutrophil Count 6.2 X10^3/uL (2.0-7.7); Basophil# 0.03 X10^3/uL; Basophil% 0.4 % (0-1); Eosinophil# 0.22 X10^3/uL; Eosinophils% 2.6 % (0-5); Hematocrit 38.7 % (37-47); Hemoglobin 12.4 g/dL (12.0-15.0); Lymphocyte % 13.1 % (19-41); Mean Corpuscular Hgb 28.7 pg (27.0-32.0); Mean Corpuscular Volume 89.6 fL (81-99); Mean Platelet Vol. 9.7 fl (6.2-12.0); Monocyte# 0.79 X10^3/uL; Monocyte% 9.4 % (0-10); NRBC Flagged by Analyzer 0 % (0-5); Neutrophil # 6.23 X10^3/uL (2.7-7.7); Neutrophil % 74.3 % (47-70); Platelet Count 271 K/mm3 (150-450); RBC Distribution Width CV 12.8 % (11.6-14.6); RBC Distribution Width SD 41.3 fl (35.1-43.9); Red Blood Count 4.32 M/mm3 (4.2-5.4); White Blood Count 8.4 K/mm3 (4.4-11.0)
[2020-03-07 01:08] LABS: International Normalized Ratio 1.1; Prothrombin Time (Protime)PT. 13.4 SECONDS (11.7-14.9)
[2020-03-07 01:09] LABS: Partial Thromboplast Time 40.7 Seconds (24.1-36.2)
--- NOTE | 2020-03-07 01:56 | ED.DCSUM_ITS ---
- ER Visit Summary Date of Service: 03/07/20 Chief Complaint: Epistaxis History of Present Illness: The patient is a 79 F who presents with epistaxis that began tonight. Patient states she felt like there was something in her nose as she tried to pick it out. Patient states the bleeding started right after this. Patient states the bleeding is been persistent. Patient states she is on anticoagulants after a cardiac stent placement. Patient states the bleeding is coming from the right nares. Patient denies any difficulty breathing or difficulty swallowing. Patient does admit to a mild sore throat. Patient states she had a similar episode a few weeks ago and had her nose packed. Patient states she followed up with Dr. Amezcua and had the packing removed and he cauterized an area in her nose. Physical Examination: Vital signs are stable. Patient is afebrile. Patient is in no acute distress. Oral mucosa is pink and moist. There is some dried blood in the oropharynx. There is bleeding from the right nares. There is no bleeding from the left nares. There is no septal deviation or septal hematoma. Neck is supple. Trachea is midline. There is no JVD. Heart was regular rate and rhythm. Lungs are clear and equal bilaterally. Abdomen is soft and nontender. Cranial nerves II through XII are intact. There are no focal motor or sensory deficits. Test Results: CBC was within normal limits. PT with INR were within normal limits. PTT was slightly elevated at 40.7. Emergency Department Course and Treatment: Cottonball soaked with Dr. Amezcua solution was placed in the right nares. Bleeding appeared to slow down. A 5.5 cm anterior rapid Rhino packing was placed in the right nares. Patient was sleeping on reevaluation. Patient had no further bleeding. The packing was left in place. Patient was instructed to follow-up with Dr. Amezcua in 1 to 2 days for packing removal and recheck. Patient understood and was agreeable with the plan. All questions were answered. Disposition: Discharge home Impression: Epistaxis This note was generated with [employer] dictation software. It may contain incorrect words, spelling, and punctuation that were not noted in review of the chart prior to signing ED Disposition - Plan for ED Patient: Disposition: Home or Assisted Living Diagnosis: Epistaxis Instructions: ED Epistaxis Adult Referrals: Chris Mendez Chi, MD [Primary Care Provider] - Antonio Amezcua MD [STAFF PHYSICIAN] - 2 Days
[2020-03-07] MEDS: Mixture 30 ML Bottle 10 ML TOPICAL (02:20)
[2020-03-07 02:27] VITALS: BP 106/67; PULSE 88; RESP 18; O2SAT 96
== END 2020-03-07 02:59 | disposition home or self-care (01) ==
PROVIDERS: Emergency Provider Emergency Medicine; PCP Family Medicine Geriatric Medicine
DX: R04.0 Epistaxis (principal); I25.10 Atherosclerotic heart disease of native coronary artery without angina pectoris; Z95.5 Presence of coronary angioplasty implant and graft; Z79.82 Long term (current) use of aspirin; Z79.899 Other long term (current) drug therapy
CPT/HCPCS: 30903; 36415; 85025; 85610; 85730; 99284

== ENCOUNTER 2020-03-09 06:35 | Outpatient (RCR) | payer MEDICARE, SELFPAY ==
[2020-01-07 10:52] VITALS: BMI 40.8
[2020-01-07 11:10] VITALS: BMI 40.8
--- NOTE | 2020-02-05 07:01 | PCM.CR.ITP ---
Exercise - Initial Assessment - Visit Date of Eval: 02/05/20 - With obvious neccessary interupption in the delivery of CR, the patient's program is on hold due to the coronovirus. The CR program has been closed for patient safety reasons.
== END 2020-04-03 23:59 ==
LOC: CR 06:35
PROVIDERS: PCP Family Medicine Geriatric Medicine; Referring Provider Internal Medicine Cardiovascular Disease; Visit Provider Internal Medicine Cardiovascular Disease
DX: E78.5 Hyperlipidemia, unspecified (principal); I10 Essential (primary) hypertension; I25.10 Atherosclerotic heart disease of native coronary artery without angina pectoris; I25.5 Ischemic cardiomyopathy
CPT/HCPCS: 93798

== ENCOUNTER → 2020-03-17 | Outpatient (CLI) | payer MEDICARE, SELFPAY ==
[2020-01-07 10:52] VITALS: BMI 40.8
[2020-03-06 23:28] VITALS: BMI 43.0
[2020-03-17 12:33] LABS: Absolute Lymphocyte Count 1.06 X10^3/uL (0.83-4.51); Basophil# 0.03 X10^3/uL; Basophil% 0.6 % (0-1); Eosinophils% 4.1 % (0-5); Hematocrit 35.7 % (37-47); Hemoglobin 11.4 g/dL (12.0-15.0); Lymphocyte # 1.06 X10^3/ul (4.0); Lymphocyte % 21.8 % (19-41); Mean Corp Hgb Conc 31.9 g/dL (32-36); Mean Corpuscular Hgb 28.5 pg (27.0-32.0); Mean Corpuscular Volume 89.3 fL (81-99); Mean Platelet Vol. 10.1 fl (6.2-12.0); Monocyte# 0.53 X10^3/uL; Monocyte% 10.9 % (0-10); NRBC Flagged by Analyzer 0 % (0-5); Neutrophil # 3.04 X10^3/uL (2.7-7.7); Neutrophil % 62.4 % (47-70); Platelet Count 240 K/mm3 (150-450); RBC Distribution Width CV 13.2 % (11.6-14.6); RBC Distribution Width SD 42.5 fl (35.1-43.9); White Blood Count 4.9 K/mm3 (4.4-11.0)
[2020-03-17 12:54] LABS: Vitamin D,25 Hydroxy 29.2 ng/mL
[2020-03-17 12:59] LABS: ALB/GLOB Ratio 0.9 RATIO (0.9-2.4); AST(SGOT) 17 U/L (15-37); Alanine Aminotransfer ALT/SGPT 20 U/L (13-56); Albumin, Serum 3.1 g/dL (3.2-5.0); Alkaline Phosphatase 107 U/L (45-117); Anion Gap 10 (5-15); BUN 17 mg/dL (7-18); BUN/Creat Ratio 21.5 RATIO (10-20); Calcium,Total 8.5 mg/dL (8.5-10.1); Chloride 105 mmol/L (98-107); Creatinine, Serum 0.79 mg/dL (0.55-1.02); EST Glomerular Filtration Rate 74 mL/min (>60); Est Glom Filt Rate - Afr Amer 90 mL/min (>60); Globulin 3.5 g/dL (2.2-4.2); Glucose 158 mg/dL (74-106); Potassium 4.2 mmol/L (3.5-5.1); Protein, Total 6.6 g/dL (6.4-8.2); Sodium Level 141 mmol/L (136-145); Thyroid Stim Hormone (TSH) 3.03 uIU/mL (0.358-3.74)
== END | disposition home or self-care (01) ==
LOC: POLAB3 11:24
PROVIDERS: PCP Family Medicine Geriatric Medicine; Visit Provider Family Medicine Geriatric Medicine
DX: E55.9 Vitamin D deficiency, unspecified (principal); I10 Essential (primary) hypertension
CPT/HCPCS: 36415; 80053; 82306; 84443; 85025

== ENCOUNTER → 2020-04-27 | Outpatient (CLI) | payer MEDICARE, SELFPAY ==
[2020-01-07 10:52] VITALS: BMI 40.8
[2020-04-01 10:40] VITALS: BMI 42.0
--- NOTE | 2020-04-27 13:41 | ECHOCS_ITS ---
Version 2 Reason For Study: CAD/ASHD Procedure This was a 2D Doppler, Color Flow transthoracic echocardiogram. The study was technically difficult. Contrast injection was performed. Exam performed in department. Left Ventricle Normal LV size. Mild concentric left ventricular hypertrophy. The estimated ejection fraction is 35 %. Moderate global left ventricular systolic dysfunction. Stage 1 diastolic dysfunction. There is moderate global hypokinesis of the left ventricle. Right Ventricle Normal RV size. Normal systolic function. Atria Normal left atrium. Normal right atrium. Mitral Valve Normal mitral valve. Tricuspid Valve Normal tricuspid valve. Mild tricuspid valve insufficiency. Pulmonary artery systolic pressure is 24 mmHg. Aortic Valve The aortic valve is not well visualized. Great Vessels Mild to moderately dilated aortic root. The pulmonary artery is normal size. Normal inferior vena cava. Pericardium/Pleural No pericardial effusion. Medication 22 gauge I.V. with prn adaptor inserted into right arm. Diluted definity 3ml given slow IV push to enhance endocardial definition. MMode/2D Measurements & Calculations LVIDd: 5.1 cm IVSd: 1.3 cm Ao root diam: 4.0 cm LVIDs: 4.3 cm LVPWd: 1.4 cm LA dimension: 3.9 cm RVDd: 3.8 cm FS: 15.9 % LAV(MOD-bp): 61.7 ml LVAd ap4: 38.1 cm2 SV(MOD-sp4): 38.0 ml LAV(MOD-bp) Indexed: 32.1 ml/m2 EDV(MOD-sp4): 149.5 ml LAV(MOD-sp2): 56.7 ml EDV(sp4-el): 156.0 ml LAV(MOD-sp4): 68.3 ml LVAs ap4: 31.2 cm2 ESV(MOD-sp4): 111.6 ml ESV(sp4-el): 111.4 ml EF(MOD-sp4): 25.4 % EF(sp4-el): 28.6 % SV(sp4-el): 44.5 ml LA A4 area: 20.9 cm2 RA A4 area: 15.3 cm2 Time Measurements MV dec time: 0.38 sec Doppler Measurements & Calculations MV E max javy: 59.9 cm/sec Lat Peak E' Javy: 3.9 cm/sec Med Peak E' Javy: 7.4 cm/sec MV A max javy: 107.8 cm/sec E/E' lat: 15.2 E/E' med: 8.1 MV E/A: 0.56 MV V2 max: 139.6 cm/sec MV P1/2t max javy: 82.8 cm/sec Ao V2 max: 155.3 cm/sec MV max P.8 mmHg MV P1/2t: 59.0 msec Ao max P.6 mmHg MV V2 mean: 59.3 cm/sec MV mean P.8 mmHg MV dec slope: 411.1 cm/sec2 MV V2 VTI: 30.9 cm MVA(P1/2t): 3.7 cm2 LV V1 max: 97.4 cm/sec PA V2 max: 98.2 cm/sec TR max javy: 220.4 cm/sec LV V1 max P.8 mmHg TR max P.4 mmHg Interpretation Summary Normal LV size. Mild concentric left ventricular hypertrophy. The estimated ejection fraction is 35 %. Moderate global left ventricular systolic dysfunction. Stage 1 diastolic dysfunction. Mild to moderately dilated aortic root. Compared to previous study, the left ventricular systolic function is the same.. Ordering Physician: Osmar Murillo Referring Physician: Chris Mendez Chi Performed By: Wallace Ornelas RCS
== END | disposition home or self-care (01) ==
LOC: CVS 13:41
PROVIDERS: PCP Family Medicine Geriatric Medicine; Referring Provider Internal Medicine Cardiovascular Disease; Visit Provider Internal Medicine Cardiovascular Disease
DX: I25.10 Atherosclerotic heart disease of native coronary artery without angina pectoris (principal)
CPT/HCPCS: 93306; Q9957; A4216; C8929

== ENCOUNTER → 2020-04-28 | Outpatient (CLI) | payer MEDICARE, SELFPAY ==
[2020-01-07 10:52] VITALS: BMI 40.8
[2020-04-01 10:40] VITALS: BMI 42.0
[2020-04-28 16:36] LABS: Anion Gap 4 (5-15); BUN 21 mg/dL (7-18); BUN/Creat Ratio 25.9 RATIO (10-20); Calcium,Total 9.1 mg/dL (8.5-10.1); Chloride 105 mmol/L (98-107); Creatinine, Serum 0.81 mg/dL (0.55-1.02); EST Glomerular Filtration Rate 72 mL/min (>60); Est Glom Filt Rate - Afr Amer 87 mL/min (>60); Glucose 102 mg/dL (74-106); Potassium 4.7 mmol/L (3.5-5.1); Sodium Level 140 mmol/L (136-145)
== END | disposition home or self-care (01) ==
LOC: POLAB3 14:43
PROVIDERS: PCP Family Medicine Geriatric Medicine; Visit Provider Family Medicine Geriatric Medicine
DX: E87.6 Hypokalemia (principal)
CPT/HCPCS: 36415; 80048

== ENCOUNTER → 2020-05-05 | Outpatient (CLI) | payer MEDICARE, SELFPAY ==
[2020-01-07 10:52] VITALS: BMI 40.8
[2020-04-01 10:40] VITALS: BMI 42.0
[2020-05-05 12:55] LABS: Anion Gap 7 (5-15); BUN 26 mg/dL (7-18); BUN/Creat Ratio 30.8 RATIO (10-20); Calcium,Total 8.8 mg/dL (8.5-10.1); Chloride 104 mmol/L (98-107); Creatinine, Serum 0.84 mg/dL (0.55-1.02); EST Glomerular Filtration Rate 69 mL/min (>60); Est Glom Filt Rate - Afr Amer 83 mL/min (>60); Glucose 103 mg/dL (74-106); Potassium 4.5 mmol/L (3.5-5.1); Sodium Level 139 mmol/L (136-145)
== END | disposition home or self-care (01) ==
LOC: POLAB3 11:36
PROVIDERS: PCP Family Medicine Geriatric Medicine; Visit Provider Family Medicine Geriatric Medicine
DX: I50.22 Chronic systolic (congestive) heart failure (principal)
CPT/HCPCS: 36415; 80048

== ENCOUNTER → 2020-05-13 | Outpatient (CLI) | payer MEDICARE, SELFPAY ==
[2020-01-07 10:52] VITALS: BMI 40.8
[2020-04-01 10:40] VITALS: BMI 42.0
[2020-05-13 12:55] LABS: Anion Gap 6 (5-15); BUN 22 mg/dL (7-18); BUN/Creat Ratio 26.9 RATIO (10-20); Calcium,Total 8.4 mg/dL (8.5-10.1); Chloride 104 mmol/L (98-107); Creatinine, Serum 0.82 mg/dL (0.55-1.02); EST Glomerular Filtration Rate 71 mL/min (>60); Est Glom Filt Rate - Afr Amer 86 mL/min (>60); Glucose 144 mg/dL (74-106); Potassium 3.9 mmol/L (3.5-5.1); Sodium Level 139 mmol/L (136-145)
== END | disposition home or self-care (01) ==
LOC: POLAB3 10:38
PROVIDERS: PCP Family Medicine Geriatric Medicine; Visit Provider Family Medicine Geriatric Medicine
DX: E87.6 Hypokalemia (principal)
CPT/HCPCS: 36415; 80048

== ENCOUNTER → 2020-05-27 | Outpatient (CLI) | payer MEDICARE, SELFPAY ==
[2020-01-07 10:52] VITALS: BMI 40.8
[2020-04-01 10:40] VITALS: BMI 42.0
[2020-05-27 12:39] LABS: Anion Gap 3 (5-15); BUN 24 mg/dL (7-18); BUN/Creat Ratio 27.1 RATIO (10-20); Calcium,Total 9.2 mg/dL (8.5-10.1); Chloride 104 mmol/L (98-107); Creatinine, Serum 0.88 mg/dL (0.55-1.02); EST Glomerular Filtration Rate 65 mL/min (>60); Est Glom Filt Rate - Afr Amer 79 mL/min (>60); Glucose 104 mg/dL (74-106); Potassium 4.2 mmol/L (3.5-5.1); Sodium Level 139 mmol/L (136-145)
== END | disposition home or self-care (01) ==
LOC: POLAB3 10:51
PROVIDERS: PCP Family Medicine Geriatric Medicine; Visit Provider Family Medicine Geriatric Medicine
DX: I10 Essential (primary) hypertension (principal)
CPT/HCPCS: 36415; 80048

== ENCOUNTER → 2020-06-15 | Outpatient (CLI) | payer MEDICARE, SELFPAY ==
[2020-01-07 10:52] VITALS: BMI 40.8
[2020-04-01 10:40] VITALS: BMI 42.0
[2020-06-15 12:28] LABS: Absolute Lymphocyte Count 1.41 X10^3/uL (0.83-4.51); Absolute Neutrophil Count 2.9 X10^3/uL (2.0-7.7); Basophil# 0.03 X10^3/uL; Basophil% 0.6 % (0-1); Eosinophil# 0.25 X10^3/uL; Eosinophils% 4.8 % (0-5); Hematocrit 46.2 % (37-47); Hemoglobin 14.7 g/dL (12.0-15.0); Lymphocyte # 1.41 X10^3/ul (4.0); Lymphocyte % 27.3 % (19-41); Mean Corp Hgb Conc 31.8 g/dL (32-36); Mean Corpuscular Hgb 27.2 pg (27.0-32.0); Mean Corpuscular Volume 85.6 fL (81-99); Mean Platelet Vol. 10.2 fl (6.2-12.0); Monocyte# 0.57 X10^3/uL; NRBC Flagged by Analyzer 0 % (0-5); Neutrophil # 2.88 X10^3/uL (2.7-7.7); Neutrophil % 55.9 % (47-70); Platelet Count 222 K/mm3 (150-450); RBC Distribution Width CV 13.6 % (11.6-14.6); RBC Distribution Width SD 42.8 fl (35.1-43.9); White Blood Count 5.2 K/mm3 (4.4-11.0)
[2020-06-15 12:49] LABS: Vitamin D,25 Hydroxy 30.9 ng/mL
[2020-06-15 12:50] LABS: ALB/GLOB Ratio 1.1 RATIO (0.9-2.4); AST(SGOT) 20 U/L (15-37); Alanine Aminotransfer ALT/SGPT 19 U/L (13-56); Albumin, Serum 3.6 g/dL (3.2-5.0); Alkaline Phosphatase 106 U/L (45-117); Anion Gap 5 (5-15); BUN 20 mg/dL (7-18); BUN/Creat Ratio 22.7 RATIO (10-20); Calcium,Total 8.7 mg/dL (8.5-10.1); Chloride 104 mmol/L (98-107); Creatinine, Serum 0.88 mg/dL (0.55-1.02); EST Glomerular Filtration Rate 65 mL/min (>60); Est Glom Filt Rate - Afr Amer 79 mL/min (>60); Globulin 3.4 g/dL (2.2-4.2); Glucose 102 mg/dL (74-106); Potassium 3.9 mmol/L (3.5-5.1); Sodium Level 141 mmol/L (136-145); Thyroid Stim Hormone (TSH) 2.99 uIU/mL (0.358-3.74)
== END | disposition home or self-care (01) ==
LOC: POLAB3 11:23
PROVIDERS: PCP Family Medicine Geriatric Medicine; Visit Provider Family Medicine Geriatric Medicine
DX: E55.9 Vitamin D deficiency, unspecified (principal); I10 Essential (primary) hypertension
CPT/HCPCS: 36415; 80053; 82306; 84443; 85025

== ENCOUNTER → 2020-08-02 | Outpatient (CLI) | payer MEDICARE, SELFPAY ==
[2020-01-07 10:52] VITALS: BMI 40.8
[2020-04-01 10:40] VITALS: BMI 42.0
--- NOTE | 2020-08-02 10:48 | BI_ITS ---
MAMMOGRAPHY - BILATERAL SCREENING REASON FOR EXAM: Female, 80 years old. Routine annual screening examination. PERTINENT HISTORY: Non-contributory. TECHNIQUE: Digital bilateral breast tony (3D mammographic acquisition) in the CC and MLO projections. 2-D mediolateral oblique (MLO) and craniocaudad (CC) views of both breasts were obtained. CAD: Full Field Digital Mammography with Computer Added Detection was performed. COMPARISON: Comparison is made with prior study dated 07/24/2019. FINDINGS: Breast Composition: The breasts are heterogeneously dense, which may obscure small masses. There are no dominant masses or suspicious calcifications. Stable benign-appearing bilateral axillary lymph nodes. No other significant abnormalities are identified. There has been no significant change since the prior study. BI/SCREEN MAMM (CAD) W/TONY BILAT IMPRESSION: Stable bilateral screening mammogram. Yearly follow-up mammogram recommended. (A) ASSESSMENT CATEGORY: BIRADS Category 2: Benign. A letter regarding these results will be sent to the patient by the facility within 30 days. Approximately 10% of breast cancers are not detected by mammography. A normal mammogram should not delay biopsy of a clinically suspicious abnormality. [id number] Electronically Signed: Carlos Gross, at 12:15 EDT , Service support ,
== END | disposition home or self-care (01) ==
LOC: OPBI 10:47
PROVIDERS: PCP Family Medicine Geriatric Medicine; Referring Provider Family Medicine Geriatric Medicine; Visit Provider Family Medicine Geriatric Medicine
DX: Z12.31 Encounter for screening mammogram for malignant neoplasm of breast (principal)
CPT/HCPCS: 77063; 77067

== ENCOUNTER → 2020-09-22 10:40 | Outpatient (CLI) | payer MEDICARE, SELFPAY ==
[2020-01-07 10:52] VITALS: BMI 40.8
[2020-04-01 10:40] VITALS: BMI 42.0
[2020-09-22 12:36] LABS: Absolute Lymphocyte Count 1.35 X10^3/uL (0.83-4.51); Absolute Neutrophil Count 3.2 X10^3/uL (2.0-7.7); Basophil# 0.03 X10^3/uL; Basophil% 0.5 % (0-1); Eosinophil# 0.33 X10^3/uL; Eosinophils% 5.9 % (0-5); Hematocrit 40.9 % (37-47); Hemoglobin 13.7 g/dL (12.0-15.0); Lymphocyte # 1.35 X10^3/ul (4.0); Lymphocyte % 24.2 % (19-41); Mean Corp Hgb Conc 33.5 g/dL (32-36); Mean Corpuscular Hgb 30.6 pg (27.0-32.0); Mean Corpuscular Volume 91.3 fL (81-99); Mean Platelet Vol. 10.5 fl (6.2-12.0); Monocyte# 0.64 X10^3/uL; Monocyte% 11.5 % (0-10); NRBC Flagged by Analyzer 0 % (0-5); Neutrophil # 3.21 X10^3/uL (2.7-7.7); Neutrophil % 57.5 % (47-70); Platelet Count 196 K/mm3 (150-450); RBC Distribution Width CV 12.6 % (11.6-14.6); RBC Distribution Width SD 42.2 fl (35.1-43.9); Red Blood Count 4.48 M/mm3 (4.2-5.4); White Blood Count 5.6 K/mm3 (4.4-11.0)
[2020-09-22 13:17] LABS: Vitamin D,25 Hydroxy 29.8 ng/mL
[2020-09-22 13:58] LABS: ALB/GLOB Ratio 1.2 RATIO (0.9-2.4); AST(SGOT) 17 U/L (15-37); Alanine Aminotransfer ALT/SGPT 18 U/L (13-56); Albumin, Serum 3.5 g/dL (3.2-5.0); Alkaline Phosphatase 94 U/L (45-117); Anion Gap 6 (5-15); BUN 20 mg/dL (7-18); BUN/Creat Ratio 24.2 RATIO (10-20); Calcium,Total 8.9 mg/dL (8.5-10.1); Chloride 104 mmol/L (98-107); Creatinine, Serum 0.82 mg/dL (0.55-1.02); EST Glomerular Filtration Rate 70 mL/min (>60); Est Glom Filt Rate - Afr Amer 85 mL/min (>60); Glucose 93 mg/dL (74-106); Protein, Total 6.5 g/dL (6.4-8.2); Sodium Level 139 mmol/L (136-145); Thyroid Stim Hormone (TSH) 2.55 uIU/mL (0.358-3.74)
== END ==
PROVIDERS: PCP Family Medicine Geriatric Medicine; Visit Provider Family Medicine Geriatric Medicine
DX: E55.9 Vitamin D deficiency, unspecified (principal); I10 Essential (primary) hypertension
CPT/HCPCS: 36415; 80053; 82306; 84443; 85025

== ENCOUNTER → 2020-11-28 10:36 | Outpatient (CLI) | payer MEDICARE, SELFPAY ==
[2020-01-07 10:52] VITALS: BMI 40.8
[2020-11-17 08:51] VITALS: BMI 43.1
--- NOTE | 2020-11-28 10:41 | ECHOCS_ITS ---
Reason For Study: CAD Procedure This was a 2D Doppler, Color Flow transthoracic echocardiogram. The study was technically difficult. Exam performed in department. Left Ventricle Normal LV size. Left ventricular systolic function is normal. The estimated ejection fraction is 55 %. Stage 1 diastolic dysfunction. No regional wall motion abnormalities noted. Right Ventricle Normal RV size. Normal systolic function. Atria Normal left atrium. Normal right atrium. Mitral Valve Mitral valve not well visualized. Tricuspid Valve Normal tricuspid valve. Aortic Valve The aortic valve is not well visualized. Pulmonic Valve The pulmonic valve is not well visualized. Great Vessels Normal aortic root. The pulmonary artery is normal size. Normal inferior vena cava. Pericardium/Pleural No pericardial effusion. Medication 22 gauge I.V. with prn adaptor inserted into right arm. Diluted definity 4ml given slow IV push to enhance endocardial definition. MMode/2D Measurements & Calculations LVIDd: 4.0 cm IVSd: 1.3 cm Ao root diam: 3.3 cm LVIDs: 3.0 cm LVPWd: 1.1 cm RVDd: 3.2 cm FS: 26.1 % LAV(MOD-bp): 42.8 ml LA A4 area: 16.9 cm2 LA dimension(2D): 2.9 cm LAV(MOD-bp) Indexed: 22.0 ml/m2 LAV(MOD-sp2): 41.4 ml LAV(MOD-sp4): 44.1 ml RA A4 area: 14.5 cm2 Doppler Measurements & Calculations MV E max javy: 67.8 cm/sec Lat Peak E' Javy: 6.7 cm/sec Med Peak E' Javy: 4.5 cm/sec MV A max javy: 86.9 cm/sec E/E' lat: 10.2 E/E' med: 15.0 MV E/A: 0.78 Ao V2 max: 184.7 cm/sec LV V1 max: 114.6 cm/sec PA V2 max: 105.1 cm/sec Ao max P.6 mmHg LV V1 max P.3 mmHg Interpretation Summary Normal LV size. Left ventricular systolic function is normal. The estimated ejection fraction is 55 %. Stage 1 diastolic dysfunction. Contrast injection was performed. Ordering Physician: Osmar Murillo Referring Physician: Chris Mendez Chi Performed By: Kayla Laureano RDCS
== END ==
PROVIDERS: PCP Family Medicine Geriatric Medicine; Referring Provider Internal Medicine Cardiovascular Disease; Visit Provider Internal Medicine Cardiovascular Disease
DX: I25.10 Atherosclerotic heart disease of native coronary artery without angina pectoris (principal); R06.09 Other forms of dyspnea
CPT/HCPCS: 93306; Q9957; A4216; C8929

== ENCOUNTER → 2021-01-02 11:30 | Outpatient (CLI) | payer MEDICARE, SELFPAY ==
[2020-01-07 10:52] VITALS: BMI 40.8
[2020-11-17 08:51] VITALS: BMI 43.1
[2021-01-02 12:39] LABS: Absolute Lymphocyte Count 1.94 X10^3/uL (0.83-4.51); Absolute Neutrophil Count 3.7 X10^3/uL (2.0-7.7); Basophil# 0.03 X10^3/uL; Basophil% 0.4 % (0-1); Eosinophil# 0.32 X10^3/uL; Eosinophils% 4.7 % (0-5); Hematocrit 45.8 % (37-47); Hemoglobin 14.6 g/dL (12.0-15.0); Lymphocyte # 1.94 X10^3/ul (4.0); Lymphocyte % 28.5 % (19-41); Mean Corp Hgb Conc 31.9 g/dL (32-36); Mean Corpuscular Hgb 28.9 pg (27.0-32.0); Mean Corpuscular Volume 90.5 fL (81-99); Mean Platelet Vol. 10.2 fl (6.2-12.0); Monocyte# 0.77 X10^3/uL; Monocyte% 11.3 % (0-10); NRBC Flagged by Analyzer 0 % (0-5); Neutrophil # 3.73 X10^3/uL (2.7-7.7); Neutrophil % 54.8 % (47-70); Platelet Count 232 K/mm3 (150-450); RBC Distribution Width CV 12.1 % (11.6-14.6); RBC Distribution Width SD 40.2 fl (35.1-43.9); Red Blood Count 5.06 M/mm3 (4.2-5.4); White Blood Count 6.8 K/mm3 (4.4-11.0)
[2021-01-02 13:20] LABS: Vitamin D,25 Hydroxy 27.1 ng/mL
[2021-01-02 13:28] LABS: AST(SGOT) 19 U/L (15-37); Alanine Aminotransfer ALT/SGPT 17 U/L (13-56); Albumin, Serum 3.6 g/dL (3.2-5.0); Alkaline Phosphatase 86 U/L (45-117); Anion Gap 6 (5-15); BUN 25 mg/dL (7-18); BUN/Creat Ratio 26.5 RATIO (10-20); Calcium,Total 9.1 mg/dL (8.5-10.1); Chloride 103 mmol/L (98-107); Creatinine, Serum 0.94 mg/dL (0.55-1.02); EST Glomerular Filtration Rate 60 mL/min (>60); Est Glom Filt Rate - Afr Amer 73 mL/min (>60); Globulin 3.5 g/dL (2.2-4.2); Glucose 88 mg/dL (74-106); Potassium 4.1 mmol/L (3.5-5.1); Protein, Total 7.1 g/dL (6.4-8.2); Sodium Level 139 mmol/L (136-145); Thyroid Stim Hormone (TSH) 3.32 uIU/mL (0.358-3.74)
== END ==
PROVIDERS: PCP Family Medicine Geriatric Medicine; Visit Provider Family Medicine Geriatric Medicine
DX: E55.9 Vitamin D deficiency, unspecified (principal); I10 Essential (primary) hypertension
CPT/HCPCS: 36415; 80053; 82306; 84443; 85025

== ENCOUNTER 2021-02-10 10:48 | Emergency (ER) | payer MEDICARE, SELFPAY ==
[2020-01-07 10:52] VITALS: BMI 40.8
[2020-11-17 08:51] VITALS: BMI 43.1
[2021-02-10 10:54] VITALS: BP 180/95; PULSE 78; RESP 16; TEMP 36.2; O2SAT 98; BMI 44.9
--- NOTE | 2021-02-10 10:57 | CT_ITS ---
STUDY: CT BRAIN WITHOUT CONTRAST REASON FOR EXAM: Female, 80 years old. head inj RADIATION DOSAGE (If Supplied By Facility): CTDIvol = ( 44.99 ) mGy, DLP = ( 812.98 ) mGycm TECHNIQUE: Transaxial CT imaging of the brain was performed without administration of intravenous contrast material. Individualized dose optimization techniques were used for this CT. COMPARISON: No relevant priors. FINDINGS: Normal soft tissue structures. Normal calvarium. There is mild cerebral atrophy with widening of the extra-axial spaces and ventricular dilatation. There are areas of decreased attenuation within the white matter tracts of the supratentorial brain, consistent with microvascular disease changes. Normal basal ganglia and thalami. Normal brainstem. Normal cerebellum. There is ectasia and tortuosity of the basilar artery. There is no intracranial hemorrhage. There are no findings of an acute ischemic infarction. Normal visualized paranasal sinuses. CT/Brain/Head without Contrast IMPRESSION: Chronic involutional changes of the brain. Electronically Signed: Enma Alford MD at 11:35 EDT Tel , Service support ,
--- NOTE | 2021-02-10 10:57 | CT_ITS ---
STUDY: CT CERVICAL SPINE WITHOUT CONTRAST REASON FOR EXAM: Female, 80 years old. Neck injury RADIATION DOSAGE (If Supplied By Facility): CTDIvol = ( 30.58 ) mGy, DLP = ( 616.66 ) mGycm TECHNIQUE: High resolution transaxial imaging was performed without contrast material. Sagittal and coronal images were reconstructed. Individualized dose optimization techniques were used for this CT. COMPARISON: None FINDINGS: Normal craniovertebral junction. There are degenerative changes of the anterior atlantoaxial articulation. Normal odontoid process. There is reversal of the normal cervical lordosis. Normal vertebral bodies and posterior osseous elements. C2-3: Normal endplates. Normal disc height and morphology. Normal central canal and intervertebral neuroforamina. C3-4: 5 mm spondylolisthesis. Endplate spondylosis. Central and paracentral disc bulge. Degenerative changes of the bilateral facet joints and uncovertebral joints. Moderate narrowing of the central canal and mild narrowing of the bilateral intervertebral neural foramina. C4-5: 4 mm spondylolisthesis. Endplate spondylosis. Central and paracentral disc bulge. Degenerative changes of the bilateral facet joints and uncovertebral joints. Moderate narrowing of the central canal and mild narrowing of the bilateral intervertebral neural foramina. C5-6: Endplate spondylosis. Central and paracentral disc bulge. Degenerative changes of the bilateral facet joints and uncovertebral joints. Moderate narrowing of the central canal and the bilateral intervertebral neural foramina. C6-7: Endplate spondylosis. Central and paracentral disc bulge. Degenerative changes of the bilateral facet joints and uncovertebral joints. Moderate narrowing of the central canal and the bilateral intervertebral neural foramina. C7-T1: Normal endplates. Normal disc height and morphology. Normal central canal and intervertebral neuroforamina. Normal visualized soft tissue structures. CT/Spine Cervical without Contras IMPRESSION: Multilevel degenerative changes, as described above. Electronically Signed: Enma Alford MD at 11:37 EDT Tel , Service support ,
[2021-02-10 11:01] VITALS: BP 144/81
--- NOTE | 2021-02-10 11:01 | ED.VIS.FALL ---
History of Present Illness Chief Complaint: Fall Narrative: Patient presenting secondary to a fall at home. Patient states this fall was mechanical, her feet got tangled and she fell. She does report that she hit her head but she did not lose consciousness. Patient states she has left hip pain after the fall. She was able to get herself on her feet and ambulate a couple of steps. Patient denies any visual changes numbness weakness nausea or vomiting, she is on Plavix. Pain in her hip is mild to moderate worse with palpation and movement. Review of systems otherwise negative. Past Medical History - Allergies and Home Meds Allergies/Adverse Reactions: Allergies tramadol HCl [From [facility]] Adverse Reaction (Verified 11/17/20 08:51) Vomiting Primary Care Physician: Chris Menedz Chi, MD [Primary Care Provider] - Prior records reviewed: Yes Past Medical History: - - Coronary artery disease, hypertension, hyperlipidemia Surgical History: angioplasty - cardiac stent, appendectomy, total hip arthroplasty Smoking Status: Never smoker - Family History Paternal Family History: Family History (Last Reviewed 11/17/20 @ 10:[address] Osmar Murillo MD) Father Cancer Mother Heart disease Family History: Reports: No pertinent history Review of Systems All systems negative except as indicated General: Denies: Chills, Fever, Sweats Eyes: Denies: Visual changes - bilaterally, Diplopia ENT: Denies: Rhinorrhea, Sore throat Cardiovascular: Denies: Chest pain, Palpitations Respiratory: Denies: Dyspnea, Cough, Dyspnea on exertion Gastrointestinal: Denies: Abdominal pain, Nausea, Vomiting, Diarrhea, Melena, Hematochezia Genitourinary: Denies: Dysuria, Hematuria, Frequency Musculoskeletal: Reports: Extremity Pain Skin: Denies: Rash, Wounds Neurological: Denies: Headache, Weakness, Numbness Physical Exam Vital Signs/Narrative: Vital Signs Temp Pulse Resp BP Pulse Ox 02/10/21 11:01 144/81 H 02/10/21 10:54 97.1 F L 78 16 180/95 H 98 Inital Vital Signs reviewed: Yes General: Obese, - - Obese elderly female no acute distress sitting comfortably in the bed Head: Normocephalic, Atraumatic Eyes: Perrl, EOMI Neck: Nontender, Full ROM. Negative for: Spinal Tenderness Cardiovascular: Regular rate, Regular rhythm, No murmurs, - - 2+ radial pulses bilaterally symmetric Respiratory: No distress, CTA bilaterally, Chest nontender, - - Chest nontender with normal excursion Abdomen: Soft, Nontender, Nondistended, Normal bowel sounds Extremeties: Patient has a very mild skin tear on the dorsum of her left hand measuring maybe 2 mm. Examination of the patient's left lower extremity shows normal distal sensation and pulses. There is pain with logroll of the left hip with some tenderness to palpation over the proximal femur. Skin: Normal color, No rash Neurological: Alert, Oriented x3, Cranial nerves II-XII grossly intact, Normal Strength, Normal Sensation Psychological: Normal affect Diagnostic/Tx/Re-eval Clinical Impression(s) from Imaging Studies Brain CT 02/10/21 10:57 IMPRESSION: Chronic involutional changes of the brain. Electronically Signed: Enma Alford MD at 11:35 EDT Tel , Service support , Cervical Spine CT 02/10/21 10:57 IMPRESSION: Multilevel degenerative changes, as described above. Electronically Signed: Enma Alford MD at 11:37 EDT Tel , Service support , Hip/Pelvis X-Ray 02/10/21 11:10 IMPRESSION: There is no evidence of left hip fracture. There is no evidence of osteolytic lesions to suggest loosening. Electronically Signed: Enma Alford MD at 11:52 EDT Tel , Service support , - Medical Decision Making Patient presented secondary to mechanical fall. 3 view of the patient's left hip by my personal interpretation as well as radiology is negative for acute fracture. CT imaging of the brain and cervical spine were found to be negative. Patient is ambulatory, I do not feel that she requires admission or further work-up at this time. She was given reassurance. She was given fall prevention instructions. Patient was discharged in stable condition. ED Disposition - Plan for ED Patient: Disposition: Home or Assisted Living Diagnosis: Fall, Contusion of left hip Instructions: ED Mechanical Fall, ED Fall Prevention Referrals: Chris Mendez Chi, MD [Primary Care Provider] - As Needed
--- NOTE | 2021-02-10 11:10 | RAD_ITS ---
STUDY: X-RAY - PELVIS AND LEFT HIP REASON FOR EXAM: Female, 80 years old. fall TECHNIQUE: 3 views of the pelvis and hip. COMPARISON: None. FINDINGS: There is a non-specific bowel gas pattern. Normal visualized soft tissue structures. There is diffuse demineralization of the osseous structures. There is narrowing with cortical sclerosis and osteophyte formation of the sacroiliac joint consistent with degenerative osteoarthritic changes. Normal bilateral superior and inferior pubic rami. There are degenerative changes of the pubic symphysis with articular narrowing and sclerosis. Normal bilateral ischial tuberosities. Bilateral hip arthroplasties are noted in the alignment. There is no evidence of left hip fracture. There is no evidence of osteolytic lesions to suggest loosening. RAD/HIP, UNI W/ Pelvis 2-3 Views IMPRESSION: There is no evidence of left hip fracture. There is no evidence of osteolytic lesions to suggest loosening. Electronically Signed: Enma Alford MD at 11:52 EDT Tel , Service support ,
[2021-02-10] MEDS: Acetaminophen 500 MG Tablet 1000 MG PO (12:23)
== END 2021-02-10 12:26 | disposition home or self-care (01) ==
PROVIDERS: Emergency Provider Emergency Medicine; PCP Family Medicine Geriatric Medicine
DX: S70.02XA Contusion of left hip, initial encounter (principal); I25.10 Atherosclerotic heart disease of native coronary artery without angina pectoris; I10 Essential (primary) hypertension; E78.5 Hyperlipidemia, unspecified; E66.9 Obesity, unspecified; W18.30XA Fall on same level, unspecified, initial encounter; Y93.89 Activity, other specified; Y92.009 Unspecified place in unspecified non-institutional (private) residence as the place of occurrence of the external cause; Y99.8 Other external cause status
CPT/HCPCS: 70450; 72125; 73502; 99284

== ENCOUNTER 2021-03-03 02:00 | Observation (INO) | payer MEDICARE, SELFPAY ==
[2020-01-07 10:52] VITALS: BMI 40.8
[2021-03-03] VITALS (45 sets, daily range): BP systolic 64–150; BP diastolic 41–88; PULSE 67–123; RESP 8–23; TEMP 35.8–36.9; O2SAT 90–999; BMI 43.6; BMI 43.4
--- NOTE | 2021-03-03 02:10 | ED.VIS.DYS ---
HPI History of Present Illness Chief Complaint: Palpitations Informant: patient Onset/Context/Timing Onset: Today Context: sudden Timing: Continuous Current Severity: Mild Maximum Severity: Mild Associated Symptoms Negative for cough, fever, sore throat or green sputum Chest Pain: Negative for None Narrative Narrative: 80-year-old female extensive past medical history including underlying cardiac disease and cardiac stent. Patient is unaware of any history of A. fib. States about an hour prior to arrival she noticed palpitations and irregular and accelerated heart rate. She denied shortness of breath but was hypoxic and squad put her on oxygen. She denies ever being told she had A. fib nor does she believe she is never been cardioverted. She denies any chest pain, fever, cough or hemoptysis. No leg pain or swelling. No history of DVT or PE. PE Risk Factors: Negative for Prior DVT or PE, Recent immobilization, Recent surgery and Recent travel Prior similar symptoms: No Recent Illness/Hospitalization: No PFSH PFSH Medical History Acute gastrointestinal ulcer with perforation Acute renal injury Acute respiratory failure Atherosclerosis of coronary artery of [place] heart without angina pectoris Cataract Cough Duodenal ulcer due to Helicobacter pylori Essential (primary) hypertension GI bleed Helicobacter pylori infection Hematoma Hyperlipidemia Hypersomnia Hypoxia Incomplete left bundle branch block Ischemic cardiomyopathy Meniere disease Obesity NEAL (obstructive sleep apnea) NEAL (obstructive sleep apnea) Osteoarthritis Perforated duodenal ulcer Home Medications pravastatin 40 mg PO QHS 08/18/13 [History Last Taken Unknown] timolol maleate 1 drp EACH EYE QHS 08/18/13 [History Last Taken Unknown] vitamins A,C,W-jkrd-cfguea 2 tab PO BID 08/18/13 [History Last Taken Unknown] ascorbic acid (vitamin C) 500 mg PO DAILY@0800 12/21/17 [History Last Taken Unknown] methenamine (bulk) 1 gm MC DAILY 12/21/17 [History Last Taken Unknown] latanoprost 0.005 % eye drops 1 drp OPHTHALMIC DAILY 11/25/19 [History Last Taken Unknown] cholecalciferol (vitamin D3) 25 mcg (1,000 unit) tablet 1,000 unit PO DAILY tab 04/01/20 [History Last Taken Unknown] darifenacin 7.5 mg tablet,extended release 24 hr 7.5 mg PO QODAY 04/01/20 [History Last Taken Unknown] icosapent ethyl 1 gram capsule 2 g PO BID cap 04/01/20 [History Last Taken Unknown] sacubitril 24 mg-valsartan 26 mg tablet 1 tab PO BID 05/03/20 [History Last Taken Unknown] aspirin 81 mg chewable tablet 81 mg PO .QOD tab 11/17/20 [History Last Taken Unknown] hydrocodone 5 mg-acetaminophen 325 mg tablet 2 tab PO TID tab 11/17/20 [History Last Taken Unknown] carvedilol 6.25 mg tablet 6.25 mg PO BID #180 tab 12/05/20 [Rx Last Taken Unknown] clopidogrel 75 mg tablet 75 mg PO DAILY #90 tab 12/05/20 [Rx Last Taken Unknown] furosemide 40 mg tablet 40 mg PO DAILY #90 tablet 02/13/21 [Rx Last Taken Unknown] Allergy/AdvReac Type Severity Reaction Status Date / Time tramadol HCl [From Ultram] AdvReac Vomiting Verified 03/03/21 02:01 Family History Father Cancer Mother Heart disease Surgical History H/O tubal ligation History of appendectomy History of coronary artery stent placement (12/14/19) History of esophagogastroduodenoscopy (EGD) History of hip replacement Social History Smoking Status: Never smoker second hand exposure: No alcohol intake: never substance use type: does not use caffeine: Yes Type: tea Number of servings: 1 what type of physical activity do you participate in: none ROS ROS ED ROS Narrative Patient denies any recent illness. She denies chest pain nor shortness of breath even though she is hypoxic on squad arrival. She denies any fever or chills. No significant cough. No abdominal pain. She denies any nausea, vomiting, diarrhea or melena. Otherwise review of systems is negative. Constitutional Constitutional ED: Denies fever(s) Eyes Eyes: Denies change in vision ENT ENT ED: Denies rhinorrhea Cardiovascular Cardiovascular: Reports palpitations and racing heartbeat; Denies chest pain Respiratory/Chest Respiratory/Chest: Denies cough, dyspnea or sputum Gastrointestinal Gastrointestinal: Denies abdominal pain, diarrhea, nausea or vomiting Genitourinary Genitourinary ED: Denies dysuria Musculoskeletal Musculoskeletal: Denies myalgias Integumentary Denies rash Neurologic Neurologic: Denies weakness Psychiatric Psychiatric: Denies depression Endocrine Endocrinology: Denies polyuria Hematologic/Lymphatic Hematologic/Lymphatic: Denies easy bruising Allergic/Immunologic Allergic/Immunologic ED: Denies urticaria EXAM Physical Exam Narrative Exam Narrative: 80-year-old female she is hypotensive 64/48 but she is actually tolerating it very well she is sitting upright in bed. She is interactive. She is talking in complete sentences without any distress. She denies feeling lightheaded. She does state that she feels her heart rate going fast and irregularly. She does not look septic or toxic. She does not look severely dehydrated. Const Vital Signs: 03/03/21 02:01 03/03/21 02:04 03/03/21 02:05 Temperature 96.4 F L 96.4 F L Temperature Source Temporal Temporal Pulse Rate 122 H 122 H Pulse Rate [1 (Initial Baseline)] Pulse Rate [2] Respiratory Rate 21 H 21 H Respiratory Rate [1 (Initial Baseline)] Respiratory Rate [2] Respiratory Effort Short of Breath Respiratory Depth Normal Respiratory Pattern Normal Blood Pressure 64/48 L 64/48 L Blood Pressure [1 (Initial Baseline)] Blood Pressure [2] Blood Pressure Mean 53 53 Pulse Ox 92 92 Oxygen Delivery Method Room Air Room Air Room Air Oxygen Delivery Method [2] Oxygen Flow Rate (L/min) Oxygen Flow Rate (L/min) [2] 03/03/21 02:16 03/03/21 02:21 03/03/21 02:37 Temperature Temperature Source Pulse Rate Pulse Rate [1 (Initial Baseline)] Pulse Rate [2] Respiratory Rate Respiratory Rate [1 (Initial Baseline)] Respiratory Rate [2] Respiratory Effort Respiratory Depth Respiratory Pattern Blood Pressure 73/54 L 79/69 L Blood Pressure [1 (Initial Baseline)] Blood Pressure [2] Blood Pressure Mean 60 72 Pulse Ox 92 Oxygen Delivery Method Room Air Oxygen Delivery Method [2] Oxygen Flow Rate (L/min) Oxygen Flow Rate (L/min) [2] 03/03/21 02:53 03/03/21 03:04 03/03/21 03:12 Temperature 97 F L Temperature Source Temporal Pulse Rate 111 H Pulse Rate [1 (Initial Baseline)] Pulse Rate [2] Respiratory Rate 17 Respiratory Rate [1 (Initial Baseline)] Respiratory Rate [2] Respiratory Effort Respiratory Depth Respiratory Pattern Blood Pressure 74/50 L 74/50 L 78/62 L Blood Pressure [1 (Initial Baseline)] Blood Pressure [2] Blood Pressure Mean 58 58 67 Pulse Ox 92 Oxygen Delivery Method Room Air Oxygen Delivery Method [2] Oxygen Flow Rate (L/min) Oxygen Flow Rate (L/min) [2] 03/03/21 04:02 03/03/21 04:15 03/03/21 04:18 Temperature 97.2 F L Temperature Source Temporal Pulse Rate 117 H 112 H 114 H Pulse Rate [1 (Initial Baseline)] 112 H Pulse Rate [2] 120 H Respiratory Rate 18 22 H 22 H Respiratory Rate [1 (Initial Baseline)] 22 H Respiratory Rate [2] 22 H Respiratory Effort Respiratory Depth Respiratory Pattern Blood Pressure 68/54 L 68/54 L 75/53 L Blood Pressure [1 (Initial Baseline)] 68/54 L Blood Pressure [2] 81/62 L Blood Pressure Mean 58 60 Pulse Ox 91 91 98 Oxygen Delivery Method Room Air Nasal Cannula Oxygen Delivery Method [2] Nasal Cannula Oxygen Flow Rate (L/min) 6 Oxygen Flow Rate (L/min) [2] 6 03/03/21 04:23 03/03/21 04:28 Temperature Temperature Source Pulse Rate 110 H 106 H Pulse Rate [1 (Initial Baseline)] Pulse Rate [2] Respiratory Rate 20 H 19 H Respiratory Rate [1 (Initial Baseline)] Respiratory Rate [2] Respiratory Effort Respiratory Depth Respiratory Pattern Blood Pressure 72/54 L 76/47 L Blood Pressure [1 (Initial Baseline)] Blood Pressure [2] Blood Pressure Mean Pulse Ox 97 95 Oxygen Delivery Method Nasal Cannula Nasal Cannula Oxygen Delivery Method [2] Oxygen Flow Rate (L/min) 6 3 Oxygen Flow Rate (L/min) [2] Positive well nourished and well developed General Appearance ED: well developed HEENT Reports moist mucous membranes atraumatic Eyes PERRL and EOMs intact bilaterally Neck no lymphadenopathy, supple, no meningeal signs and no JVD Resp normal respiratory effort and clear to auscultation bilaterally Cardio Cardio Narrative: Heart rate is consistent with A. fib on the monitor irregularly irregular rate between 110 and 125. Rhythm: abnormal rhythm irregularly irregular GI non-tender and non-distended Auscultation: normoactive bowel sounds Palpation: soft Back/Spine no CVA tenderness Extremity normal to inspection General Extremety ED: Negative for edema or tenderness General Extremity: Negative for edema Neuro oriented x3 Sensorium / Orientation: alert; Negative for confused, lethargic or stuporous Skin Rashes: no rashes MDM MDM MDM Narrative Medical decision making narrative: Older female with accelerated heart rate, hypotension and A. fib on the monitor. Patient denies any history of prior A. fib. She does have underlying cardiac disease history. Should be worked up for new onset A. fib. She will be given a half a liter normal saline then reassess to see if her blood pressure is improving. She will need admission for new onset A. fib. Discussed with the overnight hospitalist about admitting the patient. Also consulted the stepdown nurse on-call. We discussed the patient's new onset A. fib RVR with hypotension. Pressures are running around 80 systolic. Patient was sedated with etomidate 20 mg IV and cardioversion was performed with 200 and then 300 J successively. Neither the first or second attempt did anything to convert her A. fib or her rate. Patient tolerated procedure well. She was then treated with a 10 mg dose of IV Cardizem by slow push. Currently her heart rate is between 80 and 100 and her blood pressure is improving. She remains in A. fib. Lab Data Labs: Laboratory Results - last 24 hr 03/03/21 03/03/21 03/03/21 02:10 02:10 02:10 WBC 6.8 RBC 4.66 Hgb 13.9 Hct 42.3 MCV 90.8 MCH 29.8 MCHC 32.9 RDW Std Deviation 41.8 RDW Coeff of Sincere 12.6 Plt Count 230 MPV 10.4 Immature Gran % (Auto) 0.300 Neut % (Auto) 53.6 Lymph % (Auto) 32.1 [place] % (Auto) 9.2 Eos % (Auto) 4.4 Baso % (Auto) 0.4 Absolute Neuts (auto) 3.6 Absolute Lymphs (auto) 2.17 Nucleated RBC % 0 PT INR Sodium 141 Potassium 3.3 L Chloride 106 Carbon Dioxide 28.0 Anion Gap 7 BUN 23 H Creatinine 1.06 H Estim Creat Clear Calc 29.39 Est GFR (MDRD) Af Amer 64 Est GFR (MDRD) Non-Af 53 L BUN/Creatinine Ratio 21.7 H Glucose 88 Lactic Acid Calcium 9.2 Magnesium 1.8 Troponin I < 0.015 03/03/21 03/03/21 02:34 03:05 WBC RBC Hgb Hct MCV MCH MCHC RDW Std Deviation RDW Coeff of Sincere Plt Count MPV Immature Gran % (Auto) Neut % (Auto) Lymph % (Auto) [place] % (Auto) Eos % (Auto) Baso % (Auto) Absolute Neuts (auto) Absolute Lymphs (auto) Nucleated RBC % PT 13.6 INR 1.1 Sodium Potassium Chloride Carbon Dioxide Anion Gap BUN Creatinine Estim Creat Clear Calc Est GFR (MDRD) Af Amer Est GFR (MDRD) Non-Af BUN/Creatinine Ratio Glucose Lactic Acid 3.4 H* Calcium Magnesium Troponin I On evaluation patient's labs her CBC is unremarkable as is her chemistry panel. Troponin is normal. PT/INR normal. Chest x-ray is unremarkable. 3:25 AM patient is tolerating this well. Currently rates around 105. She remains in A. fib. She is sitting upright in bed her blood pressure is around 80 systolic. She is receiving a liter of IV fluid which is almost in. I do not want to give her any calcium channel porter or beta-porter at this time due to her current pressure. If she worsens we may have to do cardioversion but she is tolerating exceedingly well at this time and I do not feel is necessary. Radiography Chest X-Ray - ED: 1 View, No Acute Disease, Chronic Changes, Cardiomegaly and No Infiltrates Diagnostic Testing: Radiology Impression Chest X-Ray 03/03/21 02:19 IMPRESSION: Stable lung markings. Mild cardiomegaly. Electronically Signed: Tammi Collazo MD at 3:33 EDT Tel , Service support , Patient's CBC is unremarkable with a normal hemoglobin of 13 and white count of 6. Her electrolytes are unremarkable potassium is 3.3. Normal gap. Normal creatinine of 1. Initial EKG shows atrial fibrillation with a rate of 101. She does have ST elevation in lead aVR only who is ruling not much in the way of acute ST depression except subtly laterally. And the patient is having no chest pain. Rhythm Strip Rhythm Strip: A-fib EKG Initial EKG: Attestation: I personally reviewed and interpreted this EKG as follows: Interpretation: Atrial Fibrillation Comments: New onset A. fib rate of 101. With isolated ST elevation in aVR without any chest pain. Prior EKG tracings: available for review Prior: Changed Treatment and Re-Evaluation Comments:: Patient receiving an IV fluid bolus of 500 cc initially and will be reassessed. Procedures Other Procedures Procedure(s): Attempted cardioversion of A. fib RVR. Patient sedated with etomidate due to her hypotension. First attempt was with 200 J and had no response. Second attempt was with 300 J and again no response. Critical Care Time Critical Care Time: Yes Critical care time (excluding procedures): 30-74 minutes (32 minutes) Discharge Plan Dx/Rx/DC Orders Clinical Impression: Atrial fibrillation with rapid ventricular response, Acute hypotension, Personal history of coronary artery disease, Encounter for cardioversion procedure, History of conscious sedation Disposition Disposition: Acute Care Hospital [facility]
--- NOTE | 2021-03-03 02:19 | RAD_ITS ---
STUDY: X-RAY CHEST REASON FOR EXAM: Female, 80 years old. Chest pain TECHNIQUE: Single AP portable view of the chest. COMPARISON: November 06, 2019 chest x-ray FINDINGS: There is stable linear density in the lingula. There is no demonstrated pleural abnormality. Normal size heart. Normal mediastinum and eddie. Normal visualized pulmonary arteries. Normal visualized aortic arch and descending thoracic aorta. There are diffuse degenerative changes of the visualized thoracic spine. Normal visualized ribs, clavicles, and shoulders. There is no demonstrated abnormality of the visualized soft tissue structures of the upper abdomen. RAD/Chest 1 View (Portable) IMPRESSION: Stable lung markings. Mild cardiomegaly. Electronically Signed: Tammi Clolazo MD at 3:33 EDT Tel , Service support ,
--- NOTE | 2021-03-03 02:19 | EKG12_ITS ---
Test Reason : SOB Blood Pressure : / mmHG Vent. Rate : 101 BPM Atrial Rate : 127 BPM P-R Int : 000 ms QRS Dur : 116 ms QT Int : 376 ms P-R-T Axes : 000 -66 130 degrees QTc Int : 487 ms Atrial fibrillation Left axis deviation Incomplete left bundle branch block Nonspecific ST abnormality Abnormal ECG Confirmed by ARMIDA SANDOVAL, TYSON ([id number]), general expeditor TOYA LOMBARDO ([id number]) on 03/06/2021 12:29:05 PM Referred By: MELISSA Confirmed By:TYSON HUFFMAN MD
[2021-03-03 02:28] LABS: Absolute Lymphocyte Count 2.17 X10^3/uL (0.83-4.51); Absolute Neutrophil Count 3.6 X10^3/uL (2.0-7.7); Basophil# 0.03 X10^3/uL; Basophil% 0.4 % (0-1); Eosinophils% 4.4 % (0-5); Hematocrit 42.3 % (37-47); Hemoglobin 13.9 g/dL (12.0-15.0); Lymphocyte # 2.17 X10^3/ul (0.83-4.51); Lymphocyte % 32.1 % (19-41); Mean Corp Hgb Conc 32.9 g/dL (32-36); Mean Corpuscular Hgb 29.8 pg (27.0-32.0); Mean Corpuscular Volume 90.8 fL (81-99); Mean Platelet Vol. 10.4 fl (6.2-12.0); Monocyte# 0.62 X10^3/uL; Monocyte% 9.2 % (0-10); NRBC Flagged by Analyzer 0 % (0-5); Neutrophil # 3.62 X10^3/uL (2.7-7.7); Neutrophil % 53.6 % (47-70); Platelet Count 230 K/mm3 (150-450); RBC Distribution Width CV 12.6 % (11.6-14.6); RBC Distribution Width SD 41.8 fl (35.1-43.9); Red Blood Count 4.66 M/mm3 (4.2-5.4); White Blood Count 6.8 K/mm3 (4.4-11.0)
[2021-03-03 02:42] LABS: Anion Gap 7 (5-15); BUN 23 mg/dL (7-18); BUN/Creat Ratio 21.7 RATIO (10-20); Calcium,Total 9.2 mg/dL (8.5-10.1); Chloride 106 mmol/L (98-107); Creatinine, Serum 1.06 mg/dL (0.55-1.02); EST Glomerular Filtration Rate 53 mL/min (>60); Est Glom Filt Rate - Afr Amer 64 mL/min (>60); Estimated Creatinine Clearance 29.39 ml/min; Glucose 88 mg/dL (74-106); Potassium 3.3 mmol/L (3.5-5.1); Sodium Level 141 mmol/L (136-145)
[2021-03-03 02:53] LABS: International Normalized Ratio 1.1; Prothrombin Time (Protime)PT. 13.6 SECONDS (11.7-14.9)
[2021-03-03 03:50] LABS: Lactic Acid 3.4 mmol/L (0.4-1.9)
[2021-03-03] MEDS: Etomidate 20 MG/10 ML Vial IV (04:15)
--- NOTE | 2021-03-03 04:36 | HP.PCM.HOS_ITS ---
HPI - General General Date of Admission: 03/03/21 Chief Complaint: Palpitation HPI Narrative IRENE PAYAN, is a 80 F with a significant history of ischemic cardiomyopathy; hypertension; CAD status post stents who presents to the emergency department with persistent palpitations that started about 30 minutes prior to presentation. Associated with her symptoms is lightheadedness. At the emergency department patient was found to be hypotensive and received 1 L normal saline bolus. She was cardioverted x2; unsuccessful. She was given 10 mg of Cardizem slow push. [facility] Medical History Acute gastrointestinal ulcer with perforation Acute renal injury Acute respiratory failure Atherosclerosis of coronary artery of [place] heart without angina pectoris Cataract Cough Duodenal ulcer due to Helicobacter pylori Essential (primary) hypertension GI bleed Helicobacter pylori infection Hematoma Hyperlipidemia Hypersomnia Hypoxia Incomplete left bundle branch block Ischemic cardiomyopathy Meniere disease Obesity NEAL (obstructive sleep apnea) NEAL (obstructive sleep apnea) Osteoarthritis Perforated duodenal ulcer Home Medications pravastatin 40 mg PO QHS 08/18/13 [History Last Taken Unknown] timolol maleate 1 drp EACH EYE QHS 08/18/13 [History Last Taken Unknown] vitamins A,C,O-[id number]-tcsgiz 2 tab PO BID 08/18/13 [History Last Taken Unknown] ascorbic acid (vitamin C) 500 mg PO DAILY@0800 12/21/17 [History Last Taken Unknown] methenamine (bulk) 1 gm MC DAILY 12/21/17 [History Last Taken Unknown] latanoprost 0.005 % eye drops 1 drp OPHTHALMIC DAILY 11/25/19 [History Last Taken Unknown] cholecalciferol (vitamin D3) 25 mcg (1,000 unit) tablet 1,000 unit PO DAILY tab 04/01/20 [History Last Taken Unknown] darifenacin 7.5 mg tablet,extended release 24 hr 7.5 mg PO QODAY 04/01/20 [History Last Taken Unknown] icosapent ethyl 1 gram capsule 2 g PO BID cap 04/01/20 [History Last Taken Unknown] sacubitril 24 mg-valsartan 26 mg tablet 1 tab PO BID 05/03/20 [History Last Taken Unknown] aspirin 81 mg chewable tablet 81 mg PO .QOD tab 11/17/20 [History Last Taken Unknown] hydrocodone 5 mg-acetaminophen 325 mg tablet 2 tab PO TID tab 11/17/20 [History Last Taken Unknown] carvedilol 6.25 mg tablet 6.25 mg PO BID #180 tab 12/05/20 [Rx Last Taken Unknown] clopidogrel 75 mg tablet 75 mg PO DAILY #90 tab 12/05/20 [Rx Last Taken Unknown] furosemide 40 mg tablet 40 mg PO DAILY #90 tablet 02/13/21 [Rx Last Taken Unknown] Allergy/AdvReac Type Severity Reaction Status Date / Time tramadol HCl [From Ultram] AdvReac Vomiting Verified 03/03/21 02:01 Family History Father Cancer Mother Heart disease Surgical History H/O tubal ligation History of appendectomy History of coronary artery stent placement (12/14/19) History of esophagogastroduodenoscopy (EGD) History of hip replacement Social History Smoking Status: Never smoker second hand exposure: No alcohol intake: never substance use type: does not use caffeine: Yes Type: tea Number of servings: 1 what type of physical activity do you participate in: none ROS ROS Narrative A 12 point review of systems is negative except as above. Vital Signs Vital Signs Vital Signs: 03/03/21 02:01 03/03/21 02:04 03/03/21 02:05 Temperature 96.4 F L 96.4 F L Temperature Source Temporal Temporal Pulse Rate 122 H 122 H Pulse Rate [1 (Initial Baseline)] Pulse Rate [2] Respiratory Rate 21 H 21 H Respiratory Rate [1 (Initial Baseline)] Respiratory Rate [2] Respiratory Effort Short of Breath Respiratory Depth Normal Respiratory Pattern Normal Blood Pressure 64/48 L 64/48 L Blood Pressure [1 (Initial Baseline)] Blood Pressure [2] Blood Pressure Mean 53 53 Pulse Ox 92 92 Oxygen Delivery Method Room Air Room Air Room Air Oxygen Delivery Method [2] Oxygen Flow Rate (L/min) Oxygen Flow Rate (L/min) [2] 03/03/21 02:16 03/03/21 02:21 03/03/21 02:37 Temperature Temperature Source Pulse Rate Pulse Rate [1 (Initial Baseline)] Pulse Rate [2] Respiratory Rate Respiratory Rate [1 (Initial Baseline)] Respiratory Rate [2] Respiratory Effort Respiratory Depth Respiratory Pattern Blood Pressure 73/54 L 79/69 L Blood Pressure [1 (Initial Baseline)] Blood Pressure [2] Blood Pressure Mean 60 72 Pulse Ox 92 Oxygen Delivery Method Room Air Oxygen Delivery Method [2] Oxygen Flow Rate (L/min) Oxygen Flow Rate (L/min) [2] 03/03/21 02:53 03/03/21 03:04 03/03/21 03:12 Temperature 97 F L Temperature Source Temporal Pulse Rate 111 H Pulse Rate [1 (Initial Baseline)] Pulse Rate [2] Respiratory Rate 17 Respiratory Rate [1 (Initial Baseline)] Respiratory Rate [2] Respiratory Effort Respiratory Depth Respiratory Pattern Blood Pressure 74/50 L 74/50 L 78/62 L Blood Pressure [1 (Initial Baseline)] Blood Pressure [2] Blood Pressure Mean 58 58 67 Pulse Ox 92 Oxygen Delivery Method Room Air Oxygen Delivery Method [2] Oxygen Flow Rate (L/min) Oxygen Flow Rate (L/min) [2] 03/03/21 04:02 03/03/21 04:15 03/03/21 04:18 Temperature 97.2 F L Temperature Source Temporal Pulse Rate 117 H 112 H 123 H Pulse Rate [1 (Initial Baseline)] 112 H Pulse Rate [2] 120 H Respiratory Rate 18 22 H 20 H Respiratory Rate [1 (Initial Baseline)] 22 H Respiratory Rate [2] 22 H Respiratory Effort Respiratory Depth Respiratory Pattern Blood Pressure 68/54 L 68/54 L 75/53 L Blood Pressure [1 (Initial Baseline)] 68/54 L Blood Pressure [2] 81/62 L Blood Pressure Mean 58 60 Pulse Ox 91 91 96 Oxygen Delivery Method Room Air Nasal Cannula Oxygen Delivery Method [2] Nasal Cannula Oxygen Flow Rate (L/min) 6 Oxygen Flow Rate (L/min) [2] 6 Physical Exam Narrative Alert and oriented x3 Nontraumatic; normocephalic Lung clear to auscultate Irregularly irregular heart rate and rhythm. Abdomen bowel sounds present soft, nontender nondistended Extremity without edema cyanosis or clubbing. Lab / Micro Data Result Diagrams: 03/03/21 02:10 03/03/21 02:10 Labs: Laboratory Results - last 24 hr 03/03/21 03/03/21 03/03/21 02:10 02:10 02:34 WBC 6.8 RBC 4.66 Hgb 13.9 Hct 42.3 MCV 90.8 MCH 29.8 MCHC 32.9 RDW Std Deviation 41.8 RDW Coeff of Sincere 12.6 Plt Count 230 MPV 10.4 Immature Gran % (Auto) 0.300 Neut % (Auto) 53.6 Lymph % (Auto) 32.1 [place] % (Auto) 9.2 Eos % (Auto) 4.4 Baso % (Auto) 0.4 Absolute Neuts (auto) 3.6 Absolute Lymphs (auto) 2.17 Nucleated RBC % 0 PT 13.6 INR 1.1 Sodium 141 Potassium 3.3 L Chloride 106 Carbon Dioxide 28.0 Anion Gap 7 BUN 23 H Creatinine 1.06 H Estim Creat Clear Calc 29.39 Est GFR (MDRD) Af Amer 64 Est GFR (MDRD) Non-Af 53 L BUN/Creatinine Ratio 21.7 H Glucose 88 Lactic Acid Calcium 9.2 Troponin I < 0.015 03/03/21 03:05 WBC RBC Hgb Hct MCV MCH MCHC RDW Std Deviation RDW Coeff of Sincere Plt Count MPV Immature Gran % (Auto) Neut % (Auto) Lymph % (Auto) [place] % (Auto) Eos % (Auto) Baso % (Auto) Absolute Neuts (auto) Absolute Lymphs (auto) Nucleated RBC % PT INR Sodium Potassium Chloride Carbon Dioxide Anion Gap BUN Creatinine Estim Creat Clear Calc Est GFR (MDRD) Af Amer Est GFR (MDRD) Non-Af BUN/Creatinine Ratio Glucose Lactic Acid 3.4 H* Calcium Troponin I Rhythm Strip Rhythm Strip: A-fib Radiology Impression Chest X-Ray 03/03/21 02:19 IMPRESSION: Stable lung markings. Mild cardiomegaly. Electronically Signed: Tammi Collazo MD at 3:33 EDT Tel , Service support , Assessment & Plan Assessment/Plan (1) Atrial fibrillation with rapid ventricular response: Status: Acute Code(s): I48.91 - Unspecified atrial fibrillation (2) Acute hypotension: Status: Acute Code(s): I95.9 - Hypotension, unspecified (3) Ischemic cardiomyopathy: Status: Resolved Code(s): I25.5 - Ischemic cardiomyopathy (4) NEAL (obstructive sleep apnea): Status: Chronic Code(s): G47.33 - Obstructive sleep apnea (adult) (pediatric) (5) History of coronary artery stent placement: Status: Resolved Code(s): Z95.5 - Presence of coronary angioplasty implant and graft Plan: EKG was reviewed. EKG showed A. fib with RVR. Patient received normal saline bolus at the emergency department. Cardioversion with 200 J and 360 J was done by myself and emergency department doctor; unsuccessful. Patient received Cardizem 10 mg IV slow push which helped with her blood pressure and improved her rate. Systolic blood pressure improved to about 90. Emergency department doctor discussed the case with cardiology. Hospitalist also discussed the case with cardiology. Inpatient cardiology consult placed. Patient will be given digoxin IV push loading dose and scheduled. Therapeutic dose of Lovenox ordered. Will check TSH and magnesium. Review of medical department labs showed hypokalemia. Potassium supplementation ordered. Trend BMP. Patient will be transferred to the intensive care unit. Hold all blood pressure medications. Hold home Lasix for now. Home with home [place] secondary to hypotension. Coreg on hold. Hold home Entresto. Review of old records shows that echocardiogram on 11/28/2020 showed ejection fraction 55% and stage I diastolic dysfunction. Also echocardiogram on 04/27/2020 showed ejection fraction of 35%. And stage I diastolic dysfunction. BiPAP for obstructive sleep apnea continued. Aspirin and Plavix continued. DVT prophylaxis: Not indicated as patient has been started on therapeutic dose of Lovenox. Inpatient E&M: 99314 Init Hosp L3
[2021-03-03 04:50] LABS: Magnesium 1.8 mg/dL (1.6-2.6)
[2021-03-03] MEDS: dilTIAZem 25 MG/5 ML Vial 10 MG IV BOLUS (04:50)
[2021-03-03 07:15] LABS: Thyroid Stim Hormone (TSH) 2.35 uIU/mL (0.358-3.74)
[2021-03-03 07:18] LABS: Reflex Lactate? Y
[2021-03-03] MEDS: Digoxin 250 MCG/ML Ampul 500 MCG IV (07:20)
[2021-03-03 08:37] LABS: Lactic Acid 1.9 mmol/L (0.4-1.9)
--- NOTE | 2021-03-03 09:24 | EKG12_ITS ---
Test Reason : RHYTHM CHANGE Blood Pressure : / mmHG Vent. Rate : 086 BPM Atrial Rate : 086 BPM P-R Int : 156 ms QRS Dur : 118 ms QT Int : 376 ms P-R-T Axes : 002 -66 100 degrees QTc Int : 449 ms Normal sinus rhythm Left axis deviation Incomplete left bundle branch block Abnormal ECG Confirmed by ARMIDA SANDOVAL, TYSON ([id number]), photo editor TOYA LOMBARDO ([id number]) on 03/06/2021 12:35:21 PM Referred By: BRIELLE Confirmed By:TYSON HUFFMAN MD
[2021-03-03] MEDS: 0.9% Saline Lock 10 ML Syringe IV (10:04)
[2021-03-03] MEDS: Enoxaparin 100 MG/ML Syringe SC (10:05)
[2021-03-03] MEDS: Multivitamin (Healthy Eyes) Capsule 1 CAP PO ×2 (10:06→16:53)
[2021-03-03] MEDS: Cholecalciferol (VIT D3) 25 MCG TABLET (1,000 UNITS) PO (10:06)
[2021-03-03] MEDS: Clopidogrel Bisulfate 75 MG Tablet PO (10:11)
[2021-03-03] MEDS: Potassium Chloride Oral Tablet 20 MEQ 60 MEQ PO (10:13)
--- NOTE | 2021-03-03 11:05 | CASEMGMT ---
JONN LAM assessment: Face to Face with patient for initial transition planning/care coordination assessment. JONN LAM introduced self and role at [facility], pt voices understanding and consents to assessment. Pt is sitting up in bed in no distress on 2L nc. Pt is A/Ox4 and answers all questions appropriately. Care providers, pharmacy, and demographics verified. Presentation: SOB, 88% on ra for EMS Admitting dx: Unstable Afib RVR PCP: Andrea Specialists: Lidia, cardio; ADRIANA Herrera Preferred Pharmacy: [facility] Insurance: AeR Prescription Benefit: AeR Living Will/HPOA: Pt has LW/HPOA on file at [facility] and is aware at this time. Pt's is listed as primary and then her daughter and sons as alternates. LNOK: Maurizio Post, daughter/HPOA; Kartik Barnard, son Living Arrangements: Pt states lives alone in 1 story home and daughter lives next door. Pt states is independent with ADL's and daughter will come over if she calls her. Transportation: Pt states drives self and states no transportation concerns. DME/HHC: Pt states has the following DME: [facility] medical alert, walker x2, raised toilet seat, grab bars, and shower chair. Pt states no need for any further DME. Pt states no hx of SNF but has had [facility]HC in the past for therapy. Pt states no concerns with going home at time of discharge. Pt states did fall about 2-3weeks ago and has had muscle pain since but it is improving. PT/OT ordered and CM to follow for evals. Pt is retired. Pt states does not smoke cigarettes or drink ETOH. Pt voices no further concerns/needs. CM to follow for any further discharge planning/needs. Advised pt to ask for CM if any further questions/concerns/needs arise, voices understanding. Pt Goal: Home Plan[place] JONN LAM
--- NOTE | 2021-03-03 12:46 | CASEMGMT ---
Pt started on Eliquis and pt provided an Eliquis free 30 day trial card with instructions. CM to follow for cost and PT/OT. Doug LUNSFORD CM
[2021-03-03] MEDS: Timolol 0.5% 5ML OPTH.BTL 1 DRP EACH EYE ×2 (13:04→21:59)
[2021-03-03] MEDS: Tolterodine Tartrate 2 MG CAP.SA PO (13:04)
--- NOTE | 2021-03-03 13:31 | PCM.CONS.C ---
Assessment & Plan Assessment/Plan (1) Atrial fibrillation with rapid ventricular response: Status: Acute Code(s): I48.91 - Unspecified atrial fibrillation (2) Personal history of coronary artery disease: Status: Acute Code(s): Z86.79 - Personal history of other diseases of the circulatory system (3) Encounter for cardioversion procedure: Status: Acute Code(s): Z01.89 - Encounter for other specified special examinations (4) Dyspnea on minimal exertion: Status: Acute Code(s): R06.09 - Other forms of dyspnea (5) Atherosclerosis of coronary artery of [place] heart without angina pectoris: Status: Chronic Code(s): I25.10 - Atherosclerotic heart disease of [place] coronary artery without angina pectoris Qualifiers: Coronary Disease-Associated Artery/Lesion type: [place] artery Qualified Code(s): I25.10 - Atherosclerotic heart disease of [place] coronary artery without angina pectoris (6) Ischemic cardiomyopathy: Status: Resolved Code(s): I25.5 - Ischemic cardiomyopathy (7) Essential (primary) hypertension: Status: Chronic Code(s): I10 - Essential (primary) hypertension (8) Hyperlipidemia: Status: Chronic Code(s): E78.5 - Hyperlipidemia, unspecified Qualifiers: Hyperlipidemia type: pure hypercholesterolemia Qualified Code(s): E78.00 - Pure hypercholesterolemia, unspecified (9) NEAL (obstructive sleep apnea): Status: Chronic Code(s): G47.33 - Obstructive sleep apnea (adult) (pediatric) Plan: 80-year-old patient primary certified low vision therapist is , patient has been on dual antiplatelet therapy with Plavix and aspirin presented to the hospital with persistent symptoms of palpitation And noted to have A. fib with RVR started on Cardizem and converted to normal sinus rhythm this morning. I reviewed all her current medication, according to chads vascular score patient is a high risk for stroke and I started her on Eliquis Based on creatinine clearance. Plan and recommendation; Blood pressure remains stable initially she had hypotension and her medication was on hold I would recommend to resume her current treatment with carvedilol, Entresto, low-dose aspirin, Plavix and Eliquis 2. We will continue on diuretic furosemide and will continue to monitor electrolytes and renal function 3. If she remains stable she can be discharged home with a plan to follow-up with her primary certified low vision therapist 1-2 weeks. HPI Consult Data Date of Consult: 03/03/21 HPI Narrative HPI Narrative: IRENE PAYAN, is a 80 F who presents with persistent symptoms of palpitation does not have symptoms of chest pain. Noted to have A. fib with RVR and admitted to the ICU for further evaluation Cardiac consultation consulted as she is known to have history of CAD with prior coronary artery stent and she follows regularly with her primary certified low vision therapist [facility] Medical History Acute gastrointestinal ulcer with perforation Acute renal injury Acute respiratory failure Atherosclerosis of coronary artery of [place] heart without angina pectoris Cataract Cough Duodenal ulcer due to Helicobacter pylori Essential (primary) hypertension GI bleed Helicobacter pylori infection Hematoma Hyperlipidemia Hypersomnia Hypoxia Incomplete left bundle branch block Ischemic cardiomyopathy Meniere disease Obesity NEAL (obstructive sleep apnea) NEAL (obstructive sleep apnea) Osteoarthritis Perforated duodenal ulcer Home Medications pravastatin 40 mg PO QHS 08/18/13 [History Last Taken Unknown] timolol maleate 1 drp EACH EYE QHS 08/18/13 [History Last Taken Unknown] vitamins A,C,D-pant-uvnxzu 2 tab PO BID 08/18/13 [History Last Taken Unknown] ascorbic acid (vitamin C) 500 mg PO DAILY@0800 12/21/17 [History Last Taken Unknown] methenamine (bulk) 1 gm MC DAILY 12/21/17 [History Last Taken Unknown] latanoprost 0.005 % eye drops 1 drp OPHTHALMIC DAILY 11/25/19 [History Last Taken Unknown] cholecalciferol (vitamin D3) 25 mcg (1,000 unit) tablet 1,000 unit PO DAILY tab 04/01/20 [History Last Taken Unknown] darifenacin 7.5 mg tablet,extended release 24 hr 7.5 mg PO QODAY 04/01/20 [History Last Taken Unknown] icosapent ethyl 1 gram capsule 2 g PO BID cap 04/01/20 [History Last Taken Unknown] sacubitril 24 mg-valsartan 26 mg tablet 1 tab PO BID 05/03/20 [History Last Taken Unknown] aspirin 81 mg chewable tablet 81 mg PO .QOD tab 11/17/20 [History Last Taken Unknown] hydrocodone 5 mg-acetaminophen 325 mg tablet 2 tab PO TID tab 11/17/20 [History Last Taken Unknown] carvedilol 6.25 mg tablet 6.25 mg PO BID #180 tab 12/05/20 [Rx Last Taken Unknown] clopidogrel 75 mg tablet 75 mg PO DAILY #90 tab 12/05/20 [Rx Last Taken Unknown] furosemide 40 mg tablet 40 mg PO DAILY #90 tablet 02/13/21 [Rx Last Taken Unknown] Allergy/AdvReac Type Severity Reaction Status Date / Time tramadol HCl [From Ultram] AdvReac Vomiting Verified 03/03/21 02:01 Family History Father Cancer Mother Heart disease Surgical History H/O tubal ligation History of appendectomy History of coronary artery stent placement (12/14/19) History of esophagogastroduodenoscopy (EGD) History of hip replacement Social History Smoking Status: Never smoker second hand exposure: No alcohol intake: never substance use type: does not use caffeine: Yes Type: tea Number of servings: 1 what type of physical activity do you participate in: none ROS ROS Narrative A 12 point review of systems is negative except as above. Constitutional Constitutional: Denies fever(s) Eyes Eyes: Denies change in vision ENT HEENT: Denies rhinorrhea Cardiovascular Cardiovascular: Reports palpitations and racing heartbeat; Denies chest pain Respiratory/Chest Respiratory/Chest: Denies cough or dyspnea Gastrointestinal Gastrointestinal: Denies abdominal pain, diarrhea, nausea or vomiting Genitourinary Genitourinary: Denies dysuria Musculoskeletal Musculoskeletal: Denies myalgias Integumentary Integumentary: Denies rash Neurologic Neurologic: Denies weakness Endocrine Endocrinology: Denies polyuria Hematologic/Lymphatic Hematologic/Lymphatic: Denies easy bruising Allergic/Immunologic Allergic/Immunologic: Denies urticaria Physical Exam Narrative Cardiac examination revealed underlying rhythm initially was A. fib converted to normal sinus S1-S2 is regular, no murmur, no gallop or rub Chest examination clear to auscultation bilateral Abdomen soft Examination lower extremity no significant lower extremity edema noted. Const alert and oriented x3 Orientation / Consciousness: awake
--- NOTE | 2021-03-03 18:44 | NURSING ---
reviewed cliff otero RN charting
[2021-03-03] MEDS: Ascorbic Acid 500 MG Tablet PO (21:51)
[2021-03-03] MEDS: APIXABAN 5 MG TABLET PO (21:51)
[2021-03-03] MEDS: Pravastatin 40 MG Tablet PO (21:51)
[2021-03-03] MEDS: Latanoprost 0.005% 1 Bottle 1 DRP OPHTHALMIC (21:53)
--- NOTE | 2021-03-03 23:42 | NURSING ---
BIPAP PLACED ON PATIENT PER RT. PT CALLED OUT ABOUT A HALF HOUR LATER AND SAID SHE CANNOT TOLERATE IT. PLACED PT BACK ON 2L N/C. 95% POX. WILL CONTINUE TO MONITOR. REMAINS NSR.
[2021-03-04] VITALS (16 sets, daily range): BP systolic 112–156; BP diastolic 68–94; PULSE 66–95; RESP 13–22; TEMP 36.2–36.4; O2SAT 94–99
[2021-03-04 04:54] LABS: Absolute Lymphocyte Count 1.56 X10^3/uL (0.83-4.51); Absolute Neutrophil Count 3.2 X10^3/uL (2.0-7.7); Basophil# 0.02 X10^3/uL; Basophil% 0.4 % (0-1); Eosinophil# 0.24 X10^3/uL; Eosinophils% 4.3 % (0-5); Hematocrit 36.7 % (37-47); Lymphocyte # 1.56 X10^3/ul (0.83-4.51); Lymphocyte % 27.9 % (19-41); Mean Corp Hgb Conc 32.7 g/dL (32-36); Mean Corpuscular Hgb 29.7 pg (27.0-32.0); Mean Corpuscular Volume 90.8 fL (81-99); Monocyte# 0.62 X10^3/uL; Monocyte% 11.1 % (0-10); NRBC Flagged by Analyzer 0 % (0-5); Neutrophil # 3.15 X10^3/uL (2.7-7.7); Neutrophil % 56.1 % (47-70); Platelet Count 187 K/mm3 (150-450); RBC Distribution Width CV 12.7 % (11.6-14.6); RBC Distribution Width SD 42.3 fl (35.1-43.9); Red Blood Count 4.04 M/mm3 (4.2-5.4); White Blood Count 5.6 K/mm3 (4.4-11.0)
[2021-03-04 05:27] LABS: Anion Gap 3 (5-15); BUN 23 mg/dL (7-18); Calcium,Total 8.8 mg/dL (8.5-10.1); Chloride 109 mmol/L (98-107); Creatinine, Serum 0.82 mg/dL (0.55-1.02); EST Glomerular Filtration Rate 71 mL/min (>60); Est Glom Filt Rate - Afr Amer 85 mL/min (>60); Estimated Creatinine Clearance 39.91 ml/min; Glucose 89 mg/dL (74-106); Sodium Level 141 mmol/L (136-145)
[2021-03-04] MEDS: Tolterodine Tartrate 2 MG CAP.SA PO (08:01)
[2021-03-04] MEDS: Clopidogrel Bisulfate 75 MG Tablet PO (08:01)
[2021-03-04] MEDS: Timolol 0.5% 5ML OPTH.BTL 1 DRP EACH EYE (08:02)
[2021-03-04] MEDS: Digoxin 250 MCG Tablet PO (08:02)
[2021-03-04] MEDS: APIXABAN 5 MG TABLET PO (08:02)
[2021-03-04] MEDS: Aspirin 81 MG TAB.CHEW PO (08:03)
[2021-03-04] MEDS: Cholecalciferol (VIT D3) 25 MCG TABLET (1,000 UNITS) PO (08:03)
[2021-03-04] MEDS: Multivitamin (Healthy Eyes) Capsule 1 CAP PO (08:03)
[2021-03-04] MEDS: SACUBITRIL/VALSARTAN 24/26 MG TABLET 1 EACH PO (08:04)
[2021-03-04] MEDS: Furosemide 40 MG Tablet PO (08:05)
[2021-03-04] MEDS: Carvedilol 6.25 MG Tablet PO (08:05)
[2021-03-04] MEDS: 0.9% Saline Lock 10 ML Syringe IV (08:06)
--- NOTE | 2021-03-04 12:27 | PCM.DC ---
Discharge Instructions Outpatient Procedure Reason For Visit: UNSTABLE AFIB WITH RVR Diet Discharge Diet: Low fat / Low cholesterol Activity Discharge Activity: Return to Normal Activity Dressing / Incision Call your doctor if you observe: Fever of 101 or Higher, Shortness of breath, Dizziness, Fainting spells, Swelling in the ankles, Chest pain and Increased palpitations (irregular heartbeat) Follow Up Care Test Results: Test results from this visit will be discussed in further detail at your follow-up appointment, if applicable. Discharge Plan Admission Admit Date/Time: 03/03/21 04:22 Attending Provider: Joseph Love Primary Care Provider: Chris Mendez Chi Consulting Providers: Moe Ye Instructions Patient Instructions: Atrial Fibrillation, Taking Blood Pressure Medications, Taking Diuretics, Taking Your Blood Pressure Discharge Orders/Prescriptions Prescriptions: New Eliquis 5 mg Tablet 5 mg PO BID Qty: 60 RF: 0 digoxin 250 mcg (0.25 mg) Tablet 250 mcg PO DAILY Qty: 30 RF: 0 Continued latanoprost 0.005 % drops 1 drp OPHTHALMIC DAILY RF: 0 darifenacin 7.5 mg tablet extended release 24 hr 7.5 mg PO QODAY RF: 0 cholecalciferol (vitamin D3) 25 mcg (1,000 unit) tablet 1,000 unit PO DAILY RF: 0 icosapent ethyl 1 gram capsule 2 g PO BID RF: 0 Entresto 24-26 mg tablet 1 tab PO BID RF: 0 hydrocodone-acetaminophen 5-325 mg tablet 2 tab PO TID RF: 0 pravastatin 40 MG tablet 40 mg PO QHS RF: 0 timolol maleate 1 DROP drops 1 drp EACH EYE QHS RF: 0 vitamins A,C,J-ygbk-ovrtjj 1 EACH capsule 2 tab PO BID RF: 0 ascorbic acid (vitamin C) 500 MG tablet 500 mg PO DAILY@0800 RF: 0 methenamine (bulk) 1 GM powder 1 gm MC DAILY RF: 0 aspirin 81 mg tablet,chewable 81 mg PO .QOD RF: 0 carvedilol 6.25 mg tablet 6.25 mg PO BID Qty: 180 RF: 3 clopidogrel 75 mg tablet 75 mg PO DAILY Qty: 90 RF: 3 furosemide 40 mg tablet 40 mg PO DAILY Qty: 90 RF: 3 Referrals: Osmar Murillo MD [STAFF PHYSICIAN] - Within 2 Weeks Chris Mendez Chi, MD [Primary Care Provider] - In 1 Week Disposition Patient Disposition: Home, self care
--- NOTE | 2021-03-04 13:10 | CASEMGMT ---
JONN LAM NOTE: PT/OT notes have been reviewed. Additional therapy recommended. JONN LAM to room to discuss discharge planning. Pt states she would like [facility] for therapy and does not feel she needs a SN. Discussed homebound requirements. Pt states she is homebound, as it is difficult to get in/out of a car to go places and she uses a walker to ambulate. Pt was provided with list of [facility] providers including quality and resource use data and consistent with the patient's preferred geographic region, medical needs, and insurance network. The pt's preferred provider is [facility]. Call placed to Rachel @ [facility] and referral made. She states they are able to accept pt and SOC will be mid next week. Pt made aware and is agreeable to this. Pt voices appreciation and denies further discharge needs. Rae GAUTHIER RN CM
--- NOTE | 2021-03-04 15:28 | PN.CARD_ITS ---
Subjective Subjective: Patient seen this morning at bedside along with the nursing staff She was sitting out in a chair comfortable does not have any symptoms to report Her quality assurance monitor final showed sinus rhythm./Patient was in A. fib converted to normal sinus. On current medication Objective Data Vital Signs: Vital Signs Temp Pulse Resp BP Pulse Ox 97.5 F L 76 15 112/68 96 03/04/21 12:00 03/04/21 14:00 03/04/21 14:00 03/04/21 14:00 03/04/21 14:00 Oxygen Flow Rate (L/min) [2] 6 Oxygen Flow Rate (L/min) 2 Oxygen Delivery Method [2] Nasal Cannula Oxygen Delivery Method Room Air Weight: 231 lb 8 oz Body Mass Index (BMI) 43.4 Intake & Output: Intake and Output for Last 24 Hours 03/02/21 03/03/21 03/04/21 23:59 23:59 23:59 Intake Total 2470 / 2470 150 / 150 Output Total 1200 / 1200 100 / 100 Balance 1270 / 1270 50 / 50 Lab / Micro Data Result Diagrams: 03/04/21 04:45 03/04/21 04:45 Labs: Laboratory Results - last 24 hr 03/04/21 03/04/21 04:45 04:45 WBC 5.6 RBC 4.04 L Hgb 12.0 Hct 36.7 L MCV 90.8 MCH 29.7 MCHC 32.7 RDW Std Deviation 42.3 RDW Coeff of Sincere 12.7 Plt Count 187 MPV 10.0 Immature Gran % (Auto) 0.200 Neut % (Auto) 56.1 Lymph % (Auto) 27.9 [place] % (Auto) 11.1 H Eos % (Auto) 4.3 Baso % (Auto) 0.4 Absolute Neuts (auto) 3.2 Absolute Lymphs (auto) 1.56 Nucleated RBC % 0 Sodium 141 Potassium 4.0 Chloride 109 H Carbon Dioxide 29.0 Anion Gap 3 L BUN 23 H Creatinine 0.82 Estim Creat Clear Calc 39.91 Est GFR (MDRD) Af Amer 85 Est GFR (MDRD) Non-Af 71 BUN/Creatinine Ratio 28.0 H Glucose 89 Calcium 8.8 Rhythm Strip Rhythm Strip: A-fib Cardiology Labs/Tests 03/04/21 04:45: WBC 5.6, RBC 4.04 L, Hgb 12.0, Hct 36.7 L, MCV 90.8, MCH 29.7, MCHC 32.7, Plt Count 187, MPV 10.0, Immature Gran % (Auto) 0.200, Neut % (Auto) 56.1, Lymph % (Auto) 27.9, [place] % (Auto) 11.1 H, Eos % (Auto) 4.3, Baso % (Auto) 0.4, Absolute Neuts (auto) 3.2, Nucleated RBC % 0 03/04/21 04:45: Sodium 141, Potassium 4.0, Chloride 109 H, Carbon Dioxide 29.0, Anion Gap 3 L, BUN 23 H, Creatinine 0.82, Est GFR (MDRD) Af Amer 85, Est GFR (MDRD) Non-Af 71, BUN/Creatinine Ratio 28.0 H, Glucose 89, Calcium 8.8 Rhythm:Cardiac rhythm showed underlying normal sinus rhythm. Physical Exam Narrative Cardiac examination revealed underlying rhythm initially was A. fib converted to normal sinus S1-S2 is regular, no murmur, no gallop or rub Chest examination clear to auscultation bilateral Abdomen soft Examination lower extremity no significant lower extremity edema noted. Const alert and oriented x3 Orientation / Consciousness: awake Assessment & Plan Assessment/Plan (1) Atrial fibrillation with rapid ventricular response: Status: Acute Code(s): I48.91 - Unspecified atrial fibrillation (2) Personal history of coronary artery disease: Status: Acute Code(s): Z86.79 - Personal history of other diseases of the circulatory system (3) Encounter for cardioversion procedure: Status: Acute Code(s): Z01.89 - Encounter for other specified special examinations (4) Dyspnea on minimal exertion: Status: Acute Code(s): R06.09 - Other forms of dyspnea (5) Atherosclerosis of coronary artery of [place] heart without angina pectoris: Status: Chronic Code(s): I25.10 - Atherosclerotic heart disease of [place] coronary artery without angina pectoris Qualifiers: Coronary Disease-Associated Artery/Lesion type: [place] artery Qualified Code(s): I25.10 - Atherosclerotic heart disease of [place] coronary artery without angina pectoris (6) Ischemic cardiomyopathy: Status: Resolved Code(s): I25.5 - Ischemic cardiomyopathy (7) Essential (primary) hypertension: Status: Chronic Code(s): I10 - Essential (primary) hypertension (8) Hyperlipidemia: Status: Chronic Code(s): E78.5 - Hyperlipidemia, unspecified Qualifiers: Hyperlipidemia type: pure hypercholesterolemia Qualified Code(s): E78.00 - Pure hypercholesterolemia, unspecified (9) NEAL (obstructive sleep apnea): Status: Chronic Code(s): G47.33 - Obstructive sleep apnea (adult) (pediatric) Plan: 80-year-old patient 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 fib with RVR started on Cardizem and converted to normal sinus rhythm this morning. I reviewed all her current medication, according to chads vascular score patient is a high risk for stroke and I started her on Eliquis Based on creatinine clearance. Plan and recommendation; Blood pressure remains stable initially she had hypotension and her medication was on hold I would recommend to resume her current treatment with carvedilol, Entresto, low-dose aspirin, Plavix and Eliquis 2. We will continue on diuretic furosemide and will continue to monitor electr olytes and renal function 3. If she remains stable she can be discharged home with a plan to follow-up with her primary manager psychology 1-2 weeks. I discussed the cardiac medication in detail with the nursing staff she will be on dual antiplatelet therapy with Plavix aspirin/added Eliquis due to history of paroxysmal A. fib and a high risk of stroke.
--- NOTE | 2021-03-04 19:56 | PCM.DC.SUM ---
Providers Date of Admission: 03/03/21 Primary Care Physician: Dr. Chris Mendez MD Consultations 03/03/21 06:24 Consult: Cardiology Routine Consulting Provider: Moe Ye Reason for Consult: unstable Afib EMERGENT Consult: No MD Notified: Yes Date Notified:: 03/03/21 Time Notified: 04:34 Method of Notification: Verbal Method of Consult:: In-Person Comments:: Ed doc discussed with Dr. Ye Reason For Visit: UNSTABLE AFIB WITH RVR Diagnosis Discharge Diagnosis (1) Atrial fibrillation with rapid ventricular response: Status: Resolved Code(s): I48.91 - Unspecified atrial fibrillation (2) Personal history of coronary artery disease: Status: Chronic Code(s): Z86.79 - Personal history of other diseases of the circulatory system (3) Encounter for cardioversion procedure: Status: Resolved Code(s): Z01.89 - Encounter for other specified special examinations (4) Dyspnea on minimal exertion: Status: Resolved Code(s): R06.09 - Other forms of dyspnea (5) Atherosclerosis of coronary artery of [place] heart without angina pectoris: Status: Chronic Code(s): I25.10 - Atherosclerotic heart disease of [place] coronary artery without angina pectoris Qualifiers: Coronary Disease-Associated Artery/Lesion type: [place] artery Qualified Code(s): I25.10 - Atherosclerotic heart disease of [place] coronary artery without angina pectoris (6) Ischemic cardiomyopathy: Status: Resolved Code(s): I25.5 - Ischemic cardiomyopathy (7) Essential (primary) hypertension: Status: Chronic Code(s): I10 - Essential (primary) hypertension (8) Hyperlipidemia: Status: Chronic Code(s): E78.5 - Hyperlipidemia, unspecified Qualifiers: Hyperlipidemia type: pure hypercholesterolemia Qualified Code(s): E78.00 - Pure hypercholesterolemia, unspecified (9) NEAL (obstructive sleep apnea): Status: Chronic Code(s): G47.33 - Obstructive sleep apnea (adult) (pediatric) Medications at Discharge Home Medications pravastatin 40 mg PO QHS 08/18/13 timolol maleate 1 drp EACH EYE QHS 08/18/13 vitamins A,C,A-oolk-bnlgpb 2 tab PO BID 08/18/13 ascorbic acid (vitamin C) 500 mg PO DAILY@0800 12/21/17 methenamine (bulk) 1 gm MC DAILY 12/21/17 latanoprost 0.005 % eye drops 1 drp OPHTHALMIC DAILY 11/25/19 cholecalciferol (vitamin D3) 25 mcg (1,000 unit) tablet 1,000 unit PO DAILY tab 04/01/20 darifenacin 7.5 mg tablet,extended release 24 hr 7.5 mg PO QODAY 04/01/20 icosapent ethyl 1 gram capsule 2 g PO BID cap 04/01/20 sacubitril 24 mg-valsartan 26 mg tablet 1 tab PO BID 05/03/20 aspirin 81 mg chewable tablet 81 mg PO .QOD tab 11/17/20 hydrocodone 5 mg-acetaminophen 325 mg tablet 2 tab PO TID tab 11/17/20 carvedilol 6.25 mg tablet 6.25 mg PO BID #180 tab 12/05/20 clopidogrel 75 mg tablet 75 mg PO DAILY #90 tab 12/05/20 furosemide 40 mg tablet 40 mg PO DAILY #90 tablet 02/13/21 apixaban [Eliquis] 5 mg PO BID #60 tab 03/04/21 digoxin 250 mcg PO DAILY #30 tab 03/04/21 Hospital Course Operations None Procedures None Summary of Care Provided Minutes Spent on Discharge: 35 Hospital Course: HPI Narrative IRENE PAYAN, is a 80 F with a significant history of ischemic cardiomyopathy; hypertension; CAD status post stents who presents to the emergency department with persistent palpitations that started about 30 minutes prior to presentation. Associated with her symptoms is lightheadedness. At the emergency department patient was found to be hypotensive and received 1 L normal saline bolus. She was cardioverted x2; unsuccessful. She was given 10 mg of Cardizem slow push. Hospital Course: 1. A. fib with RVR/HTN/HLD/CAD status post dimop-70-utgt-old female presented to the hospital palpitations and was found to have hypotension on admission. She was attempted cardioversion twice without success. She was started on Cardizem and transferred to the ICU. She was placed on digoxin and converted to normal sinus rhythm later on the day of admission. She tolerated the digoxin well and on the morning of discharge her blood pressure medications were all restarted and her blood pressure was monitored. She tolerated all of her home blood pressure medications well and therefore the decision for discharge was made. I discussed with her the plan for discharge today and she expressed understanding of the risk and benefits of going home. She is on aspirin and Plavix secondary to stents, her last stent was placed in December 2019, however she is at bleeding risk secondary to also having started her on Eliquis secondary to her A. fib. I do recommend that she follow-up with cardiology in 2 weeks for evaluation of bleeding risk and management of her anticoagulation as well as her antiplatelets. Physical Exam Const alert, oriented x3 and no apparent distress General Appearance: cooperative HEENT normocephalic and moist oral mucous membranes Eyes PERRL, EOMs intact bilaterally and conjunctivae normal Neck no lymphadenopathy, supple and no JVD Resp normal respiratory effort and clear to auscultation bilaterally Auscultation: Negative for crackles, rales, rhonchi or wheezes Cardio regular rate, regular rhythm, S1 normal heart sound, S2 normal heart sound and no murmurs GI soft to palpation, non-tender and non-distended; Negative for hepatosplenomegaly Extremity no clubbing, cyanosis or edema Skin no rashes or lesions noted Neuro no focal motor deficits and no sensory deficits noted Psych affect normal ABG / Lab / Microbiology Data Result Diagrams: 03/04/21 04:45 03/04/21 04:45 Laboratory: Laboratory Results - last 24 hr 03/04/21 03/04/21 04:45 04:45 WBC 5.6 RBC 4.04 L Hgb 12.0 Hct 36.7 L MCV 90.8 MCH 29.7 MCHC 32.7 RDW Std Deviation 42.3 RDW Coeff of Sincere 12.7 Plt Count 187 MPV 10.0 Immature Gran % (Auto) 0.200 Neut % (Auto) 56.1 Lymph % (Auto) 27.9 Rooks % (Auto) 11.1 H Eos % (Auto) 4.3 Baso % (Auto) 0.4 Absolute Neuts (auto) 3.2 Absolute Lymphs (auto) 1.56 Nucleated RBC % 0 Sodium 141 Potassium 4.0 Chloride 109 H Carbon Dioxide 29.0 Anion Gap 3 L BUN 23 H Creatinine 0.82 Estim Creat Clear Calc 39.91 Est GFR (MDRD) Af Amer 85 Est GFR (MDRD) Non-Af 71 BUN/Creatinine Ratio 28.0 H Glucose 89 Calcium 8.8 D/C Instructions Discharge Diet: Low fat / Low cholesterol Discharge Activity: Return to Normal Activity Call your doctor if you observe: Fever of 101 or Higher, Shortness of breath, Dizziness, Fainting spells, Swelling in the ankles, Chest pain and Increased palpitations (irregular heartbeat) Meaningful Use Info Meaningful Use Diagnoses (Choose all that apply): None applicable Discharge Plan Admission Admit Date/Time: 03/03/21 04:22 Primary Reason for Your Visit: irregular heart beat Attending Provider: Joseph Love Primary Care Provider: Chris Mendez Chi Consulting Providers: Moe Ye Instructions Patient Instructions: Atrial Fibrillation, Taking Blood Pressure Medications, Taking Diuretics, Taking Your Blood Pressure, Apixaban Oral tablet Discharge Orders/Prescriptions Prescriptions: New Eliquis 5 mg Tablet 5 mg PO BID Qty: 60 RF: 0 digoxin 250 mcg (0.25 mg) Tablet 250 mcg PO DAILY Qty: 30 RF: 0 Continued latanoprost 0.005 % drops 1 drp OPHTHALMIC DAILY RF: 0 darifenacin 7.5 mg tablet extended release 24 hr 7.5 mg PO QODAY RF: 0 cholecalciferol (vitamin D3) 25 mcg (1,000 unit) tablet 1,000 unit PO DAILY RF: 0 icosapent ethyl 1 gram capsule 2 g PO BID RF: 0 Entresto 24-26 mg tablet 1 tab PO BID RF: 0 hydrocodone-acetaminophen 5-325 mg tablet 2 tab PO TID RF: 0 pravastatin 40 MG tablet 40 mg PO QHS RF: 0 timolol maleate 1 DROP drops 1 drp EACH EYE QHS RF: 0 vitamins A,C,I-rtgg-lldmbq 1 EACH capsule 2 tab PO BID RF: 0 ascorbic acid (vitamin C) 500 MG tablet 500 mg PO DAILY@0800 RF: 0 methenamine (bulk) 1 GM powder 1 gm MC DAILY RF: 0 aspirin 81 mg tablet,chewable 81 mg PO .QOD RF: 0 carvedilol 6.25 mg tablet 6.25 mg PO BID Qty: 180 RF: 3 clopidogrel 75 mg tablet 75 mg PO DAILY Qty: 90 RF: 3 furosemide 40 mg tablet 40 mg PO DAILY Qty: 90 RF: 3 Referrals: Osmar Murillo MD [STAFF PHYSICIAN] - Within 2 Weeks Chris Mendez Chi, MD [Primary Care Provider] - In 1 Week Disposition Patient Disposition: Home, self care Visit Charges Inpatient E&M: 18985 Disch Hosp
--- NOTE | 2021-03-06 14:30 | CASEMGMT ---
Addendum entered by Cris Tobias 03/06/21 14:30: Call from Kerri at [facility] and she states they will add SN. Doug LUNSFORD CM Original Note: RN CM Discharge F/U Phone Call LACE: Kathryn Strata: 3 Discharge date: 03/04/21 Call date: 03/06/21 Call time: 1335 Admission dx: Unstable Afib RVR Pt states has been 'doing fine' since discharge. Pt states no questions regarding discharge instructions/medications. Pt states her daughter helped her set up her meds but she is interested in SN with [facility] to help with this in the future. Message left with Kerri at [facility] to notify and SN added to order at this time. This RN CAROLE advised pt that if she didn't hear from me again then nursing was added, voices understanding. Pt states she did speak with [facility] earlier today but is awaiting a call back from therapist to set up SOC. Pt states has appt with PCP this Saturday and cardiology next Saturday. Pt states no suggestions for [facility] and states 'You all do everything very well.' Pt voices no further questions/concerns/needs. Doug LUNSFORD CM
== END 2021-03-04 16:15 | disposition home or self-care (01) | DRG 310 ==
LOC: ED 03:29 → ICU 06:54
PROVIDERS: Admitting Provider Hospitalist; Emergency Provider Emergency Medicine; PCP Family Medicine Geriatric Medicine; Visit Provider Family Medicine
DX: I48.91 Unspecified atrial fibrillation (principal); I95.9 Hypotension, unspecified; E87.6 Hypokalemia; I25.10 Atherosclerotic heart disease of native coronary artery without angina pectoris; I10 Essential (primary) hypertension; E78.5 Hyperlipidemia, unspecified; Z79.899 Other long term (current) drug therapy; Z79.02 Long term (current) use of antithrombotics/antiplatelets; Z95.5 Presence of coronary angioplasty implant and graft; G47.33 Obstructive sleep apnea (adult) (pediatric); I25.5 Ischemic cardiomyopathy; E66.9 Obesity, unspecified; M19.90 Unspecified osteoarthritis, unspecified site; Z68.41 Body mass index [BMI] 40.0-44.9, adult
CPT/HCPCS: 71045; 80048; 83605; 83735; 84443; 84484; 85025; 85610; 92960; 93005; 94002; 96361; 96372; 96374; 96375; 97162; 97166; 97530; 97535; 99218; 99285; J7030; A4216; G0378

== ENCOUNTER → 2021-03-21 10:31 | Outpatient (CLI) | payer MEDICARE, SELFPAY ==
[2020-01-07 10:52] VITALS: BMI 40.8
[2021-03-13 09:45] VITALS: BMI 41.5
[2021-03-21 12:15] LABS: Absolute Lymphocyte Count 1.54 X10^3/uL (0.83-4.51); Absolute Neutrophil Count 4.3 X10^3/uL (2.0-7.7); Basophil# 0.03 X10^3/uL; Basophil% 0.4 % (0-1); Eosinophil# 0.26 X10^3/uL; Eosinophils% 3.8 % (0-5); Hematocrit 41.8 % (37-47); Hemoglobin 13.8 g/dL (12.0-15.0); Lymphocyte # 1.54 X10^3/ul (0.83-4.51); Lymphocyte % 22.3 % (19-41); Mean Corpuscular Hgb 29.6 pg (27.0-32.0); Mean Corpuscular Volume 89.5 fL (81-99); Mean Platelet Vol. 10.2 fl (6.2-12.0); Monocyte# 0.72 X10^3/uL; Monocyte% 10.4 % (0-10); NRBC Flagged by Analyzer 0 % (0-5); Neutrophil # 4.34 X10^3/uL (2.7-7.7); Neutrophil % 62.7 % (47-70); Platelet Count 215 K/mm3 (150-450); RBC Distribution Width CV 12.6 % (11.6-14.6); Red Blood Count 4.67 M/mm3 (4.2-5.4); White Blood Count 6.9 K/mm3 (4.4-11.0)
[2021-03-21 12:39] LABS: Vitamin D,25 Hydroxy 26.5 ng/mL
[2021-03-21 12:44] LABS: ALB/GLOB Ratio 1.2 RATIO (0.9-2.4); AST(SGOT) 15 U/L (15-37); Alanine Aminotransfer ALT/SGPT 20 U/L (13-56); Albumin, Serum 3.5 g/dL (3.2-5.0); Alkaline Phosphatase 106 U/L (45-117); Anion Gap 6 (5-15); BUN 23 mg/dL (7-18); BUN/Creat Ratio 24.7 RATIO (10-20); Calcium,Total 8.7 mg/dL (8.5-10.1); Chloride 104 mmol/L (98-107); Creatinine, Serum 0.93 mg/dL (0.55-1.02); EST Glomerular Filtration Rate 61 mL/min (>60); Est Glom Filt Rate - Afr Amer 74 mL/min (>60); Glucose 100 mg/dL (74-106); Potassium 4.2 mmol/L (3.5-5.1); Protein, Total 6.5 g/dL (6.4-8.2); Sodium Level 140 mmol/L (136-145); Thyroid Stim Hormone (TSH) 2.79 uIU/mL (0.358-3.74)
== END ==
PROVIDERS: PCP Family Medicine Geriatric Medicine; Visit Provider Family Medicine Geriatric Medicine
DX: I10 Essential (primary) hypertension (principal); E55.9 Vitamin D deficiency, unspecified
CPT/HCPCS: 36415; 80053; 82306; 84443; 85025

== ENCOUNTER → 2021-06-29 09:44 | Outpatient (CLI) | payer MEDICARE, SELFPAY ==
[2020-01-07 10:52] VITALS: BMI 40.8
[2021-06-29 12:34] LABS: Absolute Lymphocyte Count 1.81 X10^3/uL (0.83-4.51); Absolute Neutrophil Count 4.7 X10^3/uL (2.0-7.7); Basophil# 0.02 X10^3/uL; Basophil% 0.3 % (0-1); Eosinophil# 0.28 X10^3/uL; Eosinophils% 3.7 % (0-5); Hematocrit 44.7 % (37-47); Hemoglobin 14.3 g/dL (12.0-15.0); Lymphocyte # 1.81 X10^3/ul (0.83-4.51); Lymphocyte % 23.8 % (19-41); Mean Corpuscular Hgb 29.3 pg (27.0-32.0); Mean Corpuscular Volume 91.6 fL (81-99); Mean Platelet Vol. 10.9 fl (6.2-12.0); Monocyte# 0.75 X10^3/uL; Monocyte% 9.9 % (0-10); NRBC Flagged by Analyzer 0 % (0-5); Neutrophil # 4.71 X10^3/uL (2.7-7.7); Neutrophil % 61.8 % (47-70); Platelet Count 193 K/mm3 (150-450); RBC Distribution Width CV 12.3 % (11.6-14.6); RBC Distribution Width SD 41.2 fl (35.1-43.9); Red Blood Count 4.88 M/mm3 (4.2-5.4); White Blood Count 7.6 K/mm3 (4.4-11.0)
[2021-06-29 12:47] LABS: Vitamin D,25 Hydroxy 29.9 ng/mL
[2021-06-29 13:03] LABS: ALB/GLOB Ratio 1.1 RATIO (0.9-2.4); AST(SGOT) 19 U/L (15-37); Alanine Aminotransfer ALT/SGPT 27 U/L (13-56); Albumin, Serum 3.5 g/dL (3.2-5.0); Alkaline Phosphatase 92 U/L (45-117); Anion Gap 5 (5-15); BUN 20 mg/dL (7-18); BUN/Creat Ratio 24.5 RATIO (10-20); Calcium,Total 8.4 mg/dL (8.5-10.1); Chloride 104 mmol/L (98-107); Creatinine, Serum 0.82 mg/dL (0.55-1.02); EST Glomerular Filtration Rate 71 mL/min (>60); Est Glom Filt Rate - Afr Amer 86 mL/min (>60); Globulin 3.1 g/dL (2.2-4.2); Glucose 104 mg/dL (74-106); Potassium 4.3 mmol/L (3.5-5.1); Protein, Total 6.6 g/dL (6.4-8.2); Sodium Level 138 mmol/L (136-145); Thyroid Stim Hormone (TSH) 3.13 uIU/mL (0.358-3.74)
== END ==
PROVIDERS: PCP Family Medicine Geriatric Medicine; Visit Provider Family Medicine Geriatric Medicine
DX: E55.9 Vitamin D deficiency, unspecified (principal); I10 Essential (primary) hypertension
CPT/HCPCS: 36415; 80053; 82306; 84443; 85025

== ENCOUNTER → 2021-08-03 10:05 | Outpatient (CLI) | payer MEDICARE, SELFPAY ==
[2020-01-07 10:52] VITALS: BMI 40.8
--- NOTE | 2021-08-03 10:19 | BI_ITS ---
MAMMOGRAPHY - BILATERAL SCREENING REASON FOR EXAM: Female, 81 years old. Routine annual screening examination. PERTINENT HISTORY: Non-contributory. TECHNIQUE: Digital bilateral breast tony (3D mammographic acquisition) in the CC and MLO projections. 2-D mediolateral oblique (MLO) and craniocaudad (CC) views of both breasts were obtained. CAD: Full Field Digital Mammography with Computer Added Detection was performed. COMPARISON: Comparison is made with prior study dated 08/02/2020 and 07/24/2019. FINDINGS: Breast Composition: The breasts are heterogeneously dense, which may obscure small masses. There are no dominant masses or suspicious calcifications. Stable benign appearing bilateral axillary lymph nodes. No other significant abnormalities are identified. There has been no significant change since the prior study. BI/SCRN MAMM (CAD)W/TONY BILAT IMPRESSION: Stable bilateral screening mammogram. Yearly follow-up mammogram recommended. (A) ASSESSMENT CATEGORY: BIRADS Category 2: Benign. A letter regarding these results will be sent to the patient by the facility within 30 days. Approximately 10% of breast cancers are not detected by mammography. A normal mammogram should not delay biopsy of a clinically suspicious abnormality. [id number] Electronically Signed: Carlos Gross MD at 12:17 EDT , Service support ,
== END ==
PROVIDERS: PCP Family Medicine Geriatric Medicine; Referring Provider Family Medicine Geriatric Medicine; Visit Provider Family Medicine Geriatric Medicine
DX: Z12.31 Encounter for screening mammogram for malignant neoplasm of breast (principal)
CPT/HCPCS: 77063; 77067

== ENCOUNTER 2021-08-30 10:52 | Emergency (ER) | payer MEDICARE, SELFPAY ==
[2020-01-07 10:52] VITALS: BMI 40.8
[2021-08-30 10:53] VITALS: BP 134/66; PULSE 57; PULSE 60; RESP 18; TEMP 36.3; O2SAT 94; BMI 41.8
--- NOTE | 2021-08-30 11:08 | EKG12_ITS ---
Test Reason : DIZZY Blood Pressure : / mmHG Vent. Rate : 058 BPM Atrial Rate : 058 BPM P-R Int : 176 ms QRS Dur : 122 ms QT Int : 402 ms P-R-T Axes : 027 -59 063 degrees QTc Int : 394 ms Sinus bradycardia Left axis deviation Poor R wave progression Abnormal ECG Confirmed by ARMIDA SANDOVAL, TSYON ([id number]), school photograph editor TOYA LOMBARDO ([id number]) on 09/01/2021 9:26:29 AM Referred By: DIAN/CHERELLE Confirmed By:TYSON HUFFMAN MD
--- NOTE | 2021-08-30 11:09 | EX.ED.DYSGE1 ---
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 She put her head down between her legs, avoiding losing consciousness. She had no palpitations, chest discomfort, dyspnea, focal neurologic symptom, or headache. She feels back to normal now and states the episode lasted maybe 20 minutes. She has a history of atrial fibrillation that was diagnosed relatively recently, she was put on medications, she does not feel palpitations usually and does not know if she is usually in or out of atrial fibrillation. She denies a history of other heart disease that she knows of. No recent illness. [facility] Medical History Acute gastrointestinal ulcer with perforation Acute renal injury Acute respiratory failure Atherosclerosis of coronary artery of [place] heart without angina pectoris Cataract Cough Duodenal ulcer due to Helicobacter pylori Essential (primary) hypertension GI bleed Helicobacter pylori infection Hematoma Hyperlipidemia Hypersomnia Hypoxia Incomplete left bundle branch block Ischemic cardiomyopathy Meniere disease Obesity NEAL (obstructive sleep apnea) NEAL (obstructive sleep apnea) Osteoarthritis Paroxysmal atrial fibrillation Perforated duodenal ulcer Home Medications pravastatin 40 mg PO QHS 08/18/13 [History Last Taken Unknown] timolol maleate 1 drp EACH EYE QHS 08/18/13 [History Last Taken Unknown] ascorbic acid (vitamin C) 500 mg PO DAILY@0800 12/21/17 [History Last Taken Unknown] latanoprost 0.005 % eye drops 1 drp OPHTHALMIC DAILY 11/25/19 [History Last Taken Unknown] icosapent ethyl 1 gram capsule 2 g PO BID cap 04/01/20 [History Last Taken Unknown] carvedilol 6.25 mg tablet 6.25 mg PO BID #180 tab 12/05/20 [Rx Last Taken Unknown] furosemide 40 mg tablet 40 mg PO DAILY #90 tablet 02/13/21 [Rx Last Taken Unknown] Eliquis 5 mg PO BID #60 tab 03/04/21 [Rx Last Taken Unknown] cholecalciferol (vitamin D3) 125 mcg (5,000 unit) tablet 125 mcg PO DAILY 03/13/21 [History Last Taken Unknown] methenamine mandelate 1 gram tablet 1 g PO QHS tab 03/13/21 [History Last Taken Unknown] sacubitril 97 mg-valsartan 103 mg tablet 1 tab PO BID tab 03/13/21 [History Last Taken Unknown] digoxin 125 mcg PO DAILY #30 tab 08/30/21 [Rx Last Taken Unknown] Allergy/AdvReac Type Severity Reaction Status Date / Time adhesive Allergy Intermediate rash and Verified 08/30/21 11:00 itching tramadol HCl [From Ultram] AdvReac Vomiting Verified 08/30/21 11:00 Family History Father Cancer Mother Heart disease Surgical History H/O tubal ligation History of appendectomy History of coronary artery stent placement (12/14/19) History of esophagogastroduodenoscopy (EGD) History of hip replacement Social History Smoking Status: Never smoker second hand exposure: No alcohol intake: never substance use type: does not use caffeine: Yes Type: tea Number of servings: 1 what type of physical activity do you participate in: none ROS ROS ED Constitutional Constitutional ED: Reports other Details: lightheaded w/ sweating ORDER SELECTOR ; Denies chills or fever(s) Eyes Eyes: Denies change in vision or diplopia ENT ENT ED: Denies rhinorrhea or sore throat Cardiovascular Cardiovascular: Denies chest pain or palpitations Respiratory/Chest Respiratory/Chest: Denies cough or dyspnea Gastrointestinal Gastrointestinal: Denies abdominal pain, diarrhea, nausea or vomiting Genitourinary Genitourinary ED: Denies dysuria or hematuria Musculoskeletal Musculoskeletal: Denies back pain or neck pain Integumentary Denies abscess or rash Neurologic Neurologic: Denies headache(s), paresthesias or weakness Psychiatric Psychiatric: Denies anxiety or suicidal thoughts EXAM Physical Exam Const Vital Signs: 08/30/21 10:53 08/30/21 10:57 08/30/21 12:53 Temperature 97.4 F L Temperature Source Oral Pulse Rate 57 L 50 L Respiratory Rate 18 18 Respiratory Effort Normal Respiratory Pattern Normal Blood Pressure 134/66 H 106/51 L Blood Pressure Mean 88 69 Pulse Ox 94 94 Oxygen Delivery Method Room Air Room Air Positive well nourished and well developed General Appearance ED: well developed and NAD HEENT Reports moist mucous membranes normocephalic and atraumatic Eyes PERRL and EOMs intact bilaterally Neck full ROM and supple Resp normal respiratory effort and clear to auscultation bilaterally Cardio regular rate, regular rhythm and no murmurs Cardio Narrative: relative bradycardia in 50's GI non-tender and non-distended Auscultation: normoactive bowel sounds Palpation: soft Back/Spine no CVA tenderness General Back: other FROM Extremity normal to inspection General Extremety ED: Negative for edema, pulses abnormal or tenderness General Extremity: Negative for edema or pulses abnormal Neuro oriented x3, CN's II-XII intact bilaterally and no sensory deficits noted Sensorium / Orientation: awake and alert Motor Exam: strength 5/5 throughout Skin no rashes or lesions noted and no wounds MDM MDM MDM Narrative Medical decision making narrative: Work-up is unremarkable. Her pulse was on the low side but she feels fine now. She is only on 6.25 mg of carvedilol and has a history of CAD and ischemic cardiomyopathy, I would not delete this and I am not able to go down any on the dosing. I discussed the possibility of decreasing her digoxin dosing with Dr. 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 He agreed with cutting it in half, trying to place a Holter, and having her follow-up. Patient is amenable to that. Unfortunately we did not have any Holter monitors available at this time, so we will schedule the patient for 1 as an outpatient. Lab Data Attestation: I reviewed the patient's lab results. Labs: Laboratory Results - last 24 hr 08/30/21 08/30/21 11:10 11:10 WBC 8.1 RBC 5.03 Hgb 14.9 Hct 45.8 MCV 91.1 MCH 29.6 MCHC 32.5 RDW Std Deviation 41.4 RDW Coeff of Sincere 12.5 Plt Count 169 MPV 10.6 Immature Gran % (Auto) 0.400 Neut % (Auto) 71.0 H Lymph % (Auto) 17.2 L [place] % (Auto) 8.0 Eos % (Auto) 3.0 Baso % (Auto) 0.4 Absolute Neuts (auto) 5.8 Absolute Lymphs (auto) 1.39 Nucleated RBC % 0 Sodium 139 Potassium 4.2 Chloride 104 Carbon Dioxide 28.0 Anion Gap 7 BUN 24 H Creatinine 1.17 H Estim Creat Clear Calc 26.17 Est GFR (MDRD) Af Amer 57 L Est GFR (MDRD) Non-Af 47 L BUN/Creatinine Ratio 20.5 H Glucose 173 H Calcium 9.0 Troponin I High Sens 10 EKG Initial EKG: Attestation: I personally reviewed and interpreted this EKG as follows: Interpretation: No Acute Injury Pattern, Sinus Bradycardia and LAFB Prior EKG tracings: available for review Prior: Unchanged Discharge Plan Triage Chief Complaint: Syncope ED Provider: Jeffrey Merino Dx/Rx/DC Orders Clinical Impression: Near syncope, Paroxysmal atrial fibrillation, Bradycardia Instructions: ED Near-Fainting, Uncertain Cause Prescriptions: Continued latanoprost 0.005 % drops 1 drp OPHTHALMIC DAILY RF: 0 icosapent ethyl 1 gram capsule 2 g PO BID RF: 0 cholecalciferol (vitamin D3) 125 mcg (5,000 unit) tablet 125 mcg PO DAILY RF: 0 methenamine mandelate 1 gram tablet 1 g PO QHS RF: 0 sacubitril-valsartan 97-103 mg tablet 1 tab PO BID RF: 0 pravastatin 40 MG tablet 40 mg PO QHS RF: 0 timolol maleate 1 DROP drops 1 drp EACH EYE QHS RF: 0 ascorbic acid (vitamin C) 500 MG tablet 500 mg PO DAILY@0800 RF: 0 Eliquis 5 mg Tablet 5 mg PO BID Qty: 60 RF: 0 carvedilol 6.25 mg tablet 6.25 mg PO BID Qty: 180 RF: 3 furosemide 40 mg tablet 40 mg PO DAILY Qty: 90 RF: 3 Changed digoxin 250 mcg (0.25 mg) Tablet 125 mcg PO DAILY Qty: 30 RF: 0 Primary Care Provider: Chris Mendez Chi Referrals: Chris Mendez Chi, MD [Primary Care Provider] - 3-5 Days if not improving Disposition Disposition: Home, Self Care
[2021-08-30 11:20] LABS: Absolute Lymphocyte Count 1.39 X10^3/uL (0.83-4.51); Absolute Neutrophil Count 5.8 X10^3/uL (2.0-7.7); Basophil# 0.03 X10^3/uL; Basophil% 0.4 % (0-1); Eosinophil# 0.24 X10^3/uL; Hematocrit 45.8 % (37-47); Hemoglobin 14.9 g/dL (12.0-15.0); Lymphocyte # 1.39 X10^3/ul (0.83-4.51); Lymphocyte % 17.2 % (19-41); Mean Corp Hgb Conc 32.5 g/dL (32-36); Mean Corpuscular Hgb 29.6 pg (27.0-32.0); Mean Corpuscular Volume 91.1 fL (81-99); Mean Platelet Vol. 10.6 fl (6.2-12.0); Monocyte# 0.65 X10^3/uL; NRBC Flagged by Analyzer 0 % (0-5); Neutrophil # 5.76 X10^3/uL (2.7-7.7); Platelet Count 169 K/mm3 (150-450); RBC Distribution Width CV 12.5 % (11.6-14.6); RBC Distribution Width SD 41.4 fl (35.1-43.9); Red Blood Count 5.03 M/mm3 (4.2-5.4); White Blood Count 8.1 K/mm3 (4.4-11.0)
[2021-08-30 11:44] LABS: Anion Gap 7 (5-15); BUN 24 mg/dL (7-18); BUN/Creat Ratio 20.5 RATIO (10-20); Chloride 104 mmol/L (98-107); Creatinine, Serum 1.17 mg/dL (0.55-1.02); EST Glomerular Filtration Rate 47 mL/min (>60); Est Glom Filt Rate - Afr Amer 57 mL/min (>60); Estimated Creatinine Clearance 26.17 ml/min; Glucose 173 mg/dL (74-106); Potassium 4.2 mmol/L (3.5-5.1); Sodium Level 139 mmol/L (136-145); Troponin-I HS 10 pg/mL (3.0-54.0)
[2021-08-30 12:53] VITALS: BP 106/51; PULSE 50; RESP 18; O2SAT 94
[2021-08-30 14:14] VITALS: BP 100/69; PULSE 80; RESP 20; O2SAT 96
== END 2021-08-30 14:25 | disposition home or self-care (01) ==
PROVIDERS: Emergency Provider Emergency Medicine; PCP Family Medicine Geriatric Medicine
DX: I48.0 Paroxysmal atrial fibrillation (principal); R55 Syncope and collapse; R00.1 Bradycardia, unspecified; I25.10 Atherosclerotic heart disease of native coronary artery without angina pectoris; I10 Essential (primary) hypertension; E78.5 Hyperlipidemia, unspecified; E66.9 Obesity, unspecified; M19.90 Unspecified osteoarthritis, unspecified site; Z79.02 Long term (current) use of antithrombotics/antiplatelets; Z79.899 Other long term (current) drug therapy
CPT/HCPCS: 80048; 84484; 85025; 93005; 96360; 96361; 99285; J7040; A4216

== ENCOUNTER → 2021-09-08 09:42 | Outpatient (CLI) | payer MEDICARE, SELFPAY ==
[2020-01-07 10:52] VITALS: BMI 40.8
== END ==
PROVIDERS: PCP Family Medicine Geriatric Medicine; Referring Provider Emergency Medicine; Visit Provider Emergency Medicine
DX: R55 Syncope and collapse (principal)
CPT/HCPCS: 93225; 93226

== ENCOUNTER → 2021-10-05 10:56 | Outpatient (CLI) | payer MEDICARE, SELFPAY ==
[2020-01-07 10:52] VITALS: BMI 40.8
[2021-10-05 12:38] LABS: Absolute Lymphocyte Count 1.46 X10^3/uL (0.83-4.51); Absolute Neutrophil Count 5.3 X10^3/uL (2.0-7.7); Basophil# 0.02 X10^3/uL; Basophil% 0.3 % (0-1); Eosinophil# 0.25 X10^3/uL; Eosinophils% 3.2 % (0-5); Hematocrit 43.6 % (37-47); Hemoglobin 14.2 g/dL (12.0-15.0); Lymphocyte # 1.46 X10^3/ul (0.83-4.51); Lymphocyte % 18.9 % (19-41); Mean Corp Hgb Conc 32.6 g/dL (32-36); Mean Corpuscular Hgb 29.5 pg (27.0-32.0); Mean Corpuscular Volume 90.6 fL (81-99); Mean Platelet Vol. 10.5 fl (6.2-12.0); Monocyte# 0.69 X10^3/uL; Monocyte% 8.9 % (0-10); NRBC Flagged by Analyzer 0 % (0-5); Neutrophil # 5.27 X10^3/uL (2.7-7.7); Neutrophil % 68.4 % (47-70); Platelet Count 202 K/mm3 (150-450); RBC Distribution Width CV 12.6 % (11.6-14.6); RBC Distribution Width SD 42.3 fl (35.1-43.9); Red Blood Count 4.81 M/mm3 (4.2-5.4); White Blood Count 7.7 K/mm3 (4.4-11.0)
[2021-10-05 12:58] LABS: Vitamin D,25 Hydroxy 28.1 ng/mL
[2021-10-05 13:09] LABS: ALB/GLOB Ratio 1.1 RATIO (0.9-2.4); AST(SGOT) 18 U/L (15-37); Alanine Aminotransfer ALT/SGPT 25 U/L (13-56); Albumin, Serum 3.5 g/dL (3.2-5.0); Alkaline Phosphatase 76 U/L (45-117); Anion Gap 6 (5-15); BUN 22 mg/dL (7-18); Calcium,Total 9.1 mg/dL (8.5-10.1); Chloride 106 mmol/L (98-107); Creatinine, Serum 0.82 mg/dL (0.55-1.02); EST Glomerular Filtration Rate 71 mL/min (>60); Est Glom Filt Rate - Afr Amer 86 mL/min (>60); Globulin 3.3 g/dL (2.2-4.2); Glucose 104 mg/dL (74-106); Potassium 4.2 mmol/L (3.5-5.1); Protein, Total 6.8 g/dL (6.4-8.2); Sodium Level 141 mmol/L (136-145)
== END ==
PROVIDERS: PCP Family Medicine Geriatric Medicine; Visit Provider Family Medicine Geriatric Medicine
DX: E55.9 Vitamin D deficiency, unspecified (principal); I10 Essential (primary) hypertension
CPT/HCPCS: 36415; 80053; 82306; 84443; 85025

== ENCOUNTER 2022-01-04 10:33 | Outpatient (CLI) | payer MEDICARE, SELFPAY ==
[2020-01-07 10:52] VITALS: BMI 40.8
[2022-01-04 12:46] LABS: Absolute Lymphocyte Count 1.85 X10^3/uL (0.83-4.51); Absolute Neutrophil Count 4.7 X10^3/uL (2.0-7.7); Basophil# 0.03 X10^3/uL; Basophil% 0.4 % (0-1); Eosinophil# 0.33 X10^3/uL; Eosinophils% 4.3 % (0-5); Hematocrit 46.9 % (37-47); Hemoglobin 15.8 g/dL (12.0-15.0); Lymphocyte # 1.85 X10^3/ul (0.83-4.51); Lymphocyte % 24.3 % (19-41); Mean Corp Hgb Conc 33.7 g/dL (32-36); Mean Corpuscular Hgb 30.1 pg (27.0-32.0); Mean Corpuscular Volume 89.3 fL (81-99); Mean Platelet Vol. 11.1 fl (6.2-12.0); Monocyte# 0.68 X10^3/uL; Monocyte% 8.9 % (0-10); NRBC Flagged by Analyzer 0 % (0-5); Neutrophil % 61.8 % (47-70); Platelet Count 197 K/mm3 (150-450); RBC Distribution Width CV 12.3 % (11.6-14.6); RBC Distribution Width SD 40.5 fl (35.1-43.9); Red Blood Count 5.25 M/mm3 (4.2-5.4); White Blood Count 7.6 K/mm3 (4.4-11.0)
[2022-01-04 12:48] LABS: Vitamin D,25 Hydroxy 28.5 ng/mL
[2022-01-04 12:58] LABS: AST(SGOT) 27 U/L (15-37); Alanine Aminotransfer ALT/SGPT 28 U/L (13-56); Albumin, Serum 3.6 g/dL (3.2-5.0); Alkaline Phosphatase 80 U/L (45-117); Anion Gap 2 (5-15); BUN 21 mg/dL (7-18); BUN/Creat Ratio 23.7 RATIO (10-20); Calcium,Total 9.1 mg/dL (8.5-10.1); Chloride 107 mmol/L (98-107); Creatinine, Serum 0.88 mg/dL (0.55-1.02); EST Glomerular Filtration Rate 65 mL/min (>60); Est Glom Filt Rate - Afr Amer 78 mL/min (>60); Globulin 3.5 g/dL (2.2-4.2); Glucose 109 mg/dL (74-106); Potassium 4.8 mmol/L (3.5-5.1); Protein, Total 7.1 g/dL (6.4-8.2); Sodium Level 138 mmol/L (136-145); Thyroid Stim Hormone (TSH) 2.66 uIU/mL (0.358-3.74)
[2022-01-04 13:43] LABS: Digoxin Level 0.94 ng/mL (0.80-2.00)
== END 2022-01-04 23:59 | disposition home or self-care (01) ==
LOC: POLAB3 10:33
PROVIDERS: PCP Family Medicine Geriatric Medicine; Visit Provider Family Medicine Geriatric Medicine
DX: E55.9 Vitamin D deficiency, unspecified (principal); I10 Essential (primary) hypertension; T46.0X1A Poisoning by cardiac-stimulant glycosides and drugs of similar action, accidental (unintentional), initial encounter
CPT/HCPCS: 36415; 80053; 80162; 82306; 84443; 85025

== ENCOUNTER → 2022-03-26 | Outpatient (CLI) | payer MEDICARE, SELFPAY ==
[2020-01-07 10:52] VITALS: BMI 40.8
[2022-03-26 12:35] LABS: Absolute Lymphocyte Count 1.69 X10^3/uL (0.83-4.51); Absolute Neutrophil Count 4.4 X10^3/uL (2.0-7.7); Basophil# 0.01 X10^3/uL; Basophil% 0.1 % (0-1); Eosinophil# 0.23 X10^3/uL; Eosinophils% 3.3 % (0-5); Hematocrit 44.5 % (37-47); Hemoglobin 14.7 g/dL (12.0-15.0); Lymphocyte # 1.69 X10^3/ul (0.83-4.51); Lymphocyte % 24.2 % (19-41); Mean Corpuscular Hgb 29.9 pg (27.0-32.0); Mean Corpuscular Volume 90.4 fL (81-99); Mean Platelet Vol. 10.6 fl (6.2-12.0); Monocyte# 0.62 X10^3/uL; Monocyte% 8.9 % (0-10); NRBC Flagged by Analyzer 0 % (0-5); Neutrophil % 63.1 % (47-70); Platelet Count 204 K/mm3 (150-450); RBC Distribution Width CV 12.3 % (11.6-14.6); RBC Distribution Width SD 40.5 fl (35.1-43.9); Red Blood Count 4.92 M/mm3 (4.2-5.4)
[2022-03-26 12:52] LABS: ALB/GLOB Ratio 1.2 RATIO (0.9-2.4); AST(SGOT) 22 U/L (15-37); Alanine Aminotransfer ALT/SGPT 26 U/L (13-56); Albumin, Serum 3.7 g/dL (3.2-5.0); Alkaline Phosphatase 76 U/L (45-117); Anion Gap 4 (5-15); BUN 18 mg/dL (7-18); BUN/Creat Ratio 21.8 RATIO (10-20); Calcium,Total 8.8 mg/dL (8.5-10.1); Chloride 104 mmol/L (98-107); Creatinine, Serum 0.83 mg/dL (0.55-1.02); EST Glomerular Filtration Rate 70 mL/min (>60); Est Glom Filt Rate - Afr Amer 85 mL/min (>60); Globulin 3.2 g/dL (2.2-4.2); Glucose 131 mg/dL (74-106); Potassium 4.7 mmol/L (3.5-5.1); Protein, Total 6.9 g/dL (6.4-8.2); Sodium Level 138 mmol/L (136-145); Thyroid Stim Hormone (TSH) 2.45 uIU/mL (0.358-3.74)
== END | disposition home or self-care (01) ==
PROVIDERS: PCP Family Medicine Geriatric Medicine; Visit Provider Family Medicine Geriatric Medicine
DX: I10 Essential (primary) hypertension (principal); E55.9 Vitamin D deficiency, unspecified
CPT/HCPCS: 36415; 80053; 82306; 84443; 85025

== ENCOUNTER 2022-03-30 12:40 | Emergency (ER) | payer MEDICARE, SELFPAY ==
[2020-01-07 10:52] VITALS: BMI 40.8
[2022-03-30 12:42] VITALS: BP 174/89; PULSE 69; RESP 15; TEMP 36; O2SAT 93; BMI 41.3
--- NOTE | 2022-03-30 13:19 | EKG12_ITS ---
Test Reason : DIZZY Blood Pressure : / mmHG Vent. Rate : 072 BPM Atrial Rate : 072 BPM P-R Int : 138 ms QRS Dur : 106 ms QT Int : 390 ms P-R-T Axes : 002 -60 101 degrees QTc Int : 427 ms Normal sinus rhythm Left axis deviation Incomplete left bundle branch block Nonspecific ST and T wave abnormality Abnormal ECG Confirmed by HEATHER SANDOVAL, JOE ([id number]), associate entertainment editor RICKY MARTINEZ ([id number]) on 04/03/2022 1:07:11 PM Referred By: JUVE Confirmed By:JOE ROMERO MD
--- NOTE | 2022-03-30 13:21 | EX.ED.DYSGE1 ---
HPI History of Present Illness Chief Complaint: Ear Problem Detail of Chief Complaint: Vertigo Informant: patient Onset/Context/Timing Onset: Days (2 days) Timing: Intermittent Current Severity: Mild Maximum Severity: Moderate Narrative Narrative: Patient presents secondary to feeling dizzy when she goes from lying to sitting or back over the past 2 days. She describes a slight spinning sensation. She denies recent URI symptoms. No history of similar but was concerned because she does have a history of A. fib. [facility] Medical History Acute gastrointestinal ulcer with perforation Acute renal injury Acute respiratory failure Atherosclerosis of coronary artery of [place] heart without angina pectoris Cataract Cough Duodenal ulcer due to Helicobacter pylori Essential (primary) hypertension GI bleed Helicobacter pylori infection Hematoma History of conscious sedation Hyperlipidemia Hypersomnia Hypoxia Incomplete left bundle branch block Ischemic cardiomyopathy Meniere disease Obesity NEAL (obstructive sleep apnea) NEAL (obstructive sleep apnea) Osteoarthritis Paroxysmal atrial fibrillation Perforated duodenal ulcer Home Medications pravastatin 40 mg PO QHS 08/18/13 [History Last Taken Unknown] timolol maleate 1 drp EACH EYE QHS 08/18/13 [History Last Taken Unknown] ascorbic acid (vitamin C) 500 mg PO DAILY@0800 12/21/17 [History Last Taken Unknown] latanoprost 0.005 % eye drops 1 drp OPHTHALMIC DAILY 11/25/19 [History Last Taken Unknown] icosapent ethyl 1 gram capsule 2 g PO BID cap 04/01/20 [History Last Taken Unknown] Eliquis 5 mg PO BID #60 tab 03/04/21 [Rx Last Taken Unknown] cholecalciferol (vitamin D3) 125 mcg (5,000 unit) tablet 125 mcg PO DAILY 03/13/21 [History Last Taken Unknown] methenamine mandelate 1 gram tablet 1 g PO QHS tab 03/13/21 [History Last Taken Unknown] sacubitril 97 mg-valsartan 103 mg tablet 1 tab PO BID tab 03/13/21 [History Last Taken Unknown] digoxin 125 mcg (0.125 mg) tablet 125 mcg PO DAILY #90 tab 09/18/21 [Rx Last Taken Unknown] furosemide 40 mg tablet See Rx Instructions .ROUTE .COMPLEX #90 tab 02/08/22 [Rx Last Taken Unknown] carvedilol 6.25 mg tablet 6.25 mg PO BID #180 tab 03/28/22 [Rx Last Taken Unknown] meclizine 25 mg PO BID PRN #10 tab 03/30/22 [Rx Last Taken Unknown] Allergy/AdvReac Type Severity Reaction Status Date / Time adhesive Allergy Intermediate rash and Verified 03/30/22 12:45 itching tramadol HCl [From Ultram] AdvReac Vomiting Verified 03/30/22 12:45 Family History Father Cancer Mother Heart disease Surgical History H/O tubal ligation History of appendectomy History of coronary artery stent placement (12/14/19) History of esophagogastroduodenoscopy (EGD) History of hip replacement Social History Smoking Status: Never smoker second hand exposure: No alcohol intake: never substance use type: does not use caffeine: Yes Type: tea Number of servings: 1 what type of physical activity do you participate in: none ROS ROS ED Constitutional Constitutional ED: Denies chills or fever(s) Eyes Eyes: Denies change in vision ENT ENT ED: Denies sore throat Cardiovascular Cardiovascular: Denies chest pain Respiratory/Chest Respiratory/Chest: Denies cough or dyspnea Gastrointestinal Gastrointestinal: Denies abdominal pain, diarrhea, nausea or vomiting Genitourinary Genitourinary ED: Denies dysuria Musculoskeletal Musculoskeletal: Denies back pain or neck pain Integumentary Denies rash Neurologic Neurologic: Denies headache(s) or weakness Allergic/Immunologic Allergic/Immunologic ED: Denies urticaria EXAM Physical Exam Const Vital Signs: 03/30/22 12:42 03/30/22 13:49 Temperature 96.8 F L Temperature Source Temporal Pulse Rate 69 64 Respiratory Rate 15 16 Blood Pressure 174/89 H 138/79 H Blood Pressure Mean 117 98 Pulse Ox 93 Oxygen Delivery Method Room Air Positive well nourished and well developed General Appearance ED: well developed HEENT Reports moist mucous membranes Eyes PERRL and EOMs intact bilaterally Neck supple Chest Wall inspection of chest normal and palpation of chest normal Resp normal respiratory effort and clear to auscultation bilaterally Cardio regular rate and regular rhythm GI normal to inspection, nondistended, normoactive bowel sounds and non-tender Palpation: soft Extremity normal to inspection Neuro oriented x3 Sensorium / Orientation: alert Motor Exam: strength 5/5 throughout Psych mental status grossly normal Skin no rashes or lesions noted MDM MDM MDM Narrative Medical decision making narrative: 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 EKG, lab work, urinalysis obtained. Patient given IV fluids and oral Antivert. Lab Data Attestation: I reviewed the patient's lab results. Labs: Laboratory Results - last 24 hr 03/30/22 03/30/22 03/30/22 13:30 13:40 13:40 WBC 9.1 RBC 5.04 Hgb 15.2 H Hct 45.0 MCV 89.3 MCH 30.2 MCHC 33.8 RDW Std Deviation 40.2 RDW Coeff of Sincere 12.3 Plt Count 194 MPV 9.9 Immature Gran % (Auto) 0.300 Neut % (Auto) 62.0 Lymph % (Auto) 24.7 [place] % (Auto) 8.8 Eos % (Auto) 3.9 Baso % (Auto) 0.3 Absolute Neuts (auto) 5.6 Absolute Lymphs (auto) 2.24 Nucleated RBC % 0 Sodium 139 Potassium 3.9 Chloride 104 Carbon Dioxide 28.0 Anion Gap 7 BUN 22 H Creatinine 0.90 Estim Creat Clear Calc 33.42 Est GFR (MDRD) Af Amer 77 Est GFR (MDRD) Non-Af 63 BUN/Creatinine Ratio 24.4 H Glucose 100 Calcium 9.3 Urine Color Straw Urine Clarity Clear Urine pH 7.0 Ur Specific [place] 1.005 Urine Protein Negative Urine Glucose (UA) Normal Urine Ketones Negative Urine Occult Blood 10 H Urine Nitrite Negative Urine Bilirubin Negative Urine Urobilinogen Normal Ur Leukocyte Esterase 25 H Urine RBC 0 SEEN Urine WBC 0 SEEN Ur Squamous Epith Cells 0 SEEN Urine Bacteria 0 SEEN Urine Mucus 0 SEEN Digoxin 03/30/22 13:40 WBC RBC Hgb Hct MCV MCH MCHC RDW Std Deviation RDW Coeff of Sincere Plt Count MPV Immature Gran % (Auto) Neut % (Auto) Lymph % (Auto) [place] % (Auto) Eos % (Auto) Baso % (Auto) Absolute Neuts (auto) Absolute Lymphs (auto) Nucleated RBC % Sodium Potassium Chloride Carbon Dioxide Anion Gap BUN Creatinine Estim Creat Clear Calc Est GFR (MDRD) Af Amer Est GFR (MDRD) Non-Af BUN/Creatinine Ratio Glucose Calcium Urine Color Urine Clarity Urine pH Ur Specific [place] Urine Protein Urine Glucose (UA) Urine Ketones Urine Occult Blood Urine Nitrite Urine Bilirubin Urine Urobilinogen Ur Leukocyte Esterase Urine RBC Urine WBC Ur Squamous Epith Cells Urine Bacteria Urine Mucus Digoxin 0.73 L EKG Initial EKG: Attestation: I personally reviewed and interpreted this EKG as follows: Interpretation: Sinus Rhythm (Sinus at 72 with no acute ischemia.) Treatment and Re-Evaluation Narrative: On repeat evaluation patient resting comfortably. Lab work reviewed and largely unremarkable. She may have mild dehydration with hemoglobin concentrated at 15.2 and BUN of 22. Urinalysis is unremarkable with no ketones. Digoxin level is just below normal limits at 0.73. Patient is able to get up and ambulate to the restroom without difficulty. She does feel improved. She will be given prescription for Antivert to use as needed. Discharge Plan Triage Chief Complaint: Ear Problem ED Provider: Simin Zaldivar Dx/Rx/DC Orders Clinical Impression: Vertigo Instructions: ED Vertigo, Unspecified Prescriptions: New meclizine 25 mg tablet 25 mg PO BID PRN (Reason: dizziness) Qty: 10 RF: 0 No Action latanoprost 0.005 % drops 1 drp OPHTHALMIC DAILY RF: 0 icosapent ethyl 1 gram capsule 2 g PO BID RF: 0 cholecalciferol (vitamin D3) 125 mcg (5,000 unit) tablet 125 mcg PO DAILY RF: 0 methenamine mandelate 1 gram tablet 1 g PO QHS RF: 0 sacubitril-valsartan 97-103 mg tablet 1 tab PO BID RF: 0 pravastatin 40 MG tablet 40 mg PO QHS RF: 0 timolol maleate 1 DROP drops 1 drp EACH EYE QHS RF: 0 ascorbic acid (vitamin C) 500 MG tablet 500 mg PO DAILY@0800 RF: 0 Eliquis 5 mg Tablet 5 mg PO BID Qty: 60 RF: 0 digoxin [Digox] 125 mcg (0.125 mg) tablet 125 mcg PO DAILY Qty: 90 RF: 3 furosemide 40 mg tablet See Rx Instructions .ROUTE .COMPLEX Qty: 90 RF: 3 carvedilol 6.25 mg tablet 6.25 mg PO BID Qty: 180 RF: 3 Primary Care Provider: Chris Mendez Chi Referrals: Chris Mendez Chi, MD [Primary Care Provider] - 1 Week Disposition Disposition: Home, Self Care
[2022-03-30] MEDS: Meclizine HCl 25 MG Tablet PO (13:35)
[2022-03-30 13:36] LABS: Bacteria 0 SEEN /hpf (None Seen); Mucous, Urine 0 SEEN /hpf (<or=2+); Red Blood Cells-Urine 0 SEEN /hpf (0-5); Squamous Epithelial Cells - UA 0 SEEN /hpf (5-10); White Blood Cells 0 SEEN /hpf (0-5)
[2022-03-30 13:39] LABS: Color, Urine Straw (Yellow); Glucose, Dipstick Normal (Normal); Ketone-Dipstick Negative (Negative); Leukocyte Esterase-Dipstick 25 /ul (Negative); Nitrite-Dipstick Negative (Negative); Occult Blood-Urine 10 /ul (Negative); Protein-Dipstick Negative (Negative); Specific Gravity, Urine 1.005 (1.002-1.030); Urine Bilirubin Dipstick Negative (Negative); Urine Clarity Clear (Clear); Urine Urobilinogen Normal (Normal)
[2022-03-30 13:48] LABS: Absolute Lymphocyte Count 2.24 X10^3/uL (0.83-4.51); Absolute Neutrophil Count 5.6 X10^3/uL (2.0-7.7); Basophil# 0.03 X10^3/uL; Basophil% 0.3 % (0-1); Eosinophil# 0.35 X10^3/uL; Eosinophils% 3.9 % (0-5); Hemoglobin 15.2 g/dL (12.0-15.0); Lymphocyte # 2.24 X10^3/ul (0.83-4.51); Lymphocyte % 24.7 % (19-41); Mean Corp Hgb Conc 33.8 g/dL (32-36); Mean Corpuscular Hgb 30.2 pg (27.0-32.0); Mean Corpuscular Volume 89.3 fL (81-99); Mean Platelet Vol. 9.9 fl (6.2-12.0); Monocyte% 8.8 % (0-10); NRBC Flagged by Analyzer 0 % (0-5); Neutrophil # 5.61 X10^3/uL (2.7-7.7); Platelet Count 194 K/mm3 (150-450); RBC Distribution Width CV 12.3 % (11.6-14.6); RBC Distribution Width SD 40.2 fl (35.1-43.9); Red Blood Count 5.04 M/mm3 (4.2-5.4); White Blood Count 9.1 K/mm3 (4.4-11.0)
[2022-03-30 13:49] VITALS: BP 138/79; PULSE 64; RESP 16
[2022-03-30] MEDS: 0.9% Normal Saline 1,000 ML 150 ML IV (13:58)
[2022-03-30 14:01] LABS: Anion Gap 7 (5-15); BUN 22 mg/dL (7-18); BUN/Creat Ratio 24.4 RATIO (10-20); Calcium,Total 9.3 mg/dL (8.5-10.1); Chloride 104 mmol/L (98-107); EST Glomerular Filtration Rate 63 mL/min (>60); Est Glom Filt Rate - Afr Amer 77 mL/min (>60); Estimated Creatinine Clearance 33.42 ml/min; Glucose 100 mg/dL (74-106); Potassium 3.9 mmol/L (3.5-5.1); Sodium Level 139 mmol/L (136-145)
[2022-03-30 14:34] LABS: Digoxin Level 0.73 ng/mL (0.80-2.00)
== END 2022-03-30 15:39 | disposition home or self-care (01) ==
PROVIDERS: Emergency Provider Emergency Medicine; PCP Family Medicine Geriatric Medicine; Visit Provider Emergency Medicine
DX: R42 Dizziness and giddiness (principal); I48.0 Paroxysmal atrial fibrillation; Z68.41 Body mass index [BMI] 40.0-44.9, adult; I10 Essential (primary) hypertension; I25.10 Atherosclerotic heart disease of native coronary artery without angina pectoris; I25.5 Ischemic cardiomyopathy; E78.5 Hyperlipidemia, unspecified; Z87.19 Personal history of other diseases of the digestive system; E66.9 Obesity, unspecified; G47.33 Obstructive sleep apnea (adult) (pediatric); M19.90 Unspecified osteoarthritis, unspecified site; Z79.899 Other long term (current) drug therapy; Z79.01 Long term (current) use of anticoagulants; Z95.5 Presence of coronary angioplasty implant and graft; E86.0 Dehydration
CPT/HCPCS: 80048; 80162; 81001; 85025; 93005; 96360; 96361; 99283; J7030; A4216

== ENCOUNTER → 2022-07-12 | Outpatient (CLI) | payer MEDICARE, SELFPAY ==
[2020-01-07 10:52] VITALS: BMI 40.8
[2022-07-12 12:21] LABS: Absolute Lymphocyte Count 2.15 X10^3/uL (0.83-4.51); Basophil# 0.04 X10^3/uL; Basophil% 0.6 % (0-1); Eosinophil# 0.29 X10^3/uL; Hematocrit 44.1 % (37-47); Hemoglobin 14.8 g/dL (12.0-15.0); Lymphocyte # 2.15 X10^3/ul (0.83-4.51); Lymphocyte % 29.8 % (19-41); Mean Corp Hgb Conc 33.6 g/dL (32-36); Mean Corpuscular Hgb 30.5 pg (27.0-32.0); Mean Corpuscular Volume 90.9 fL (81-99); Mean Platelet Vol. 10.3 fl (6.2-12.0); Monocyte# 0.68 X10^3/uL; Monocyte% 9.4 % (0-10); NRBC Flagged by Analyzer 0 % (0-5); Neutrophil # 4.03 X10^3/uL (2.7-7.7); Neutrophil % 55.8 % (47-70); Platelet Count 197 K/mm3 (150-450); RBC Distribution Width CV 12.3 % (11.6-14.6); RBC Distribution Width SD 40.7 fl (35.1-43.9); Red Blood Count 4.85 M/mm3 (4.2-5.4); White Blood Count 7.2 K/mm3 (4.4-11.0)
[2022-07-12 12:36] LABS: Vitamin D,25 Hydroxy 26.4 ng/mL
[2022-07-12 12:52] LABS: ALB/GLOB Ratio 1.1 RATIO (0.9-2.4); AST(SGOT) 17 U/L (15-37); Alanine Aminotransfer ALT/SGPT 23 U/L (13-56); Albumin, Serum 3.6 g/dL (3.2-5.0); Alkaline Phosphatase 90 U/L (45-117); Anion Gap 6 (5-15); BUN 28 mg/dL (7-18); BUN/Creat Ratio 32.6 RATIO (10-20); Calcium,Total 9.4 mg/dL (8.5-10.1); Chloride 104 mmol/L (98-107); Creatinine, Serum 0.86 mg/dL (0.55-1.02); EST Glomerular Filtration Rate 67 mL/min (>60); Est Glom Filt Rate - Afr Amer 81 mL/min (>60); Globulin 3.4 g/dL (2.2-4.2); Glucose 103 mg/dL (74-106); Potassium 4.7 mmol/L (3.5-5.1); Sodium Level 138 mmol/L (136-145); Thyroid Stim Hormone (TSH) 4.48 uIU/mL (0.358-3.74)
== END | disposition home or self-care (01) ==
LOC: POLAB3 09:59
PROVIDERS: PCP Family Medicine Geriatric Medicine; Visit Provider Family Medicine Geriatric Medicine
DX: I10 Essential (primary) hypertension (principal); E55.9 Vitamin D deficiency, unspecified
CPT/HCPCS: 36415; 80053; 82306; 84443; 85025

== ENCOUNTER → 2022-08-06 | Outpatient (CLI) | payer MEDICARE, SELFPAY ==
[2020-01-07 10:52] VITALS: BMI 40.8
--- NOTE | 2022-08-06 12:29 | BI_ITS ---
MAMMOGRAPHY - BILATERAL SCREENING REASON FOR EXAM: Female, 82 years old. Routine annual screening examination. PERTINENT HISTORY: Non-contributory. TECHNIQUE: Digital bilateral breast tony (3D mammographic acquisition) in the CC and MLO projections. 2-D mediolateral oblique (MLO) and craniocaudad (CC) views of both breasts were obtained. CAD: Full Field Digital Mammography with Computer Added Detection was performed. COMPARISON: Comparison is made with prior study 08/03/2021 and 08/02/2020. FINDINGS: Breast Composition: The breasts are heterogeneously dense, which may obscure small masses. There are no dominant masses or suspicious calcifications. Stable small benign-appearing bilateral axillary. No other significant abnormalities are identified. There has been no significant change since the prior study. BI/SCRN MAMM (CAD)W/TONY BILAT IMPRESSION: Stable bilateral screening mammogram. Yearly follow-up mammogram recommended. (A) ASSESSMENT CATEGORY: BIRADS Category 2: Benign. A letter regarding these results will be sent to the patient by the facility within 30 days. Approximately 10% of breast cancers are not detected by mammography. A normal mammogram should not delay biopsy of a clinically suspicious abnormality. [id number] Electronically Signed: Carlos Gross MD at 13:39 EDT ,
== END | disposition home or self-care (01) ==
LOC: OPBI 12:28
PROVIDERS: PCP Family Medicine Geriatric Medicine; Visit Provider Family Medicine Geriatric Medicine
DX: Z12.31 Encounter for screening mammogram for malignant neoplasm of breast (principal)
CPT/HCPCS: 77063; 77067

== ENCOUNTER → 2022-09-17 | Outpatient (CLI) | payer MEDICARE, SELFPAY ==
[2020-01-07 10:52] VITALS: BMI 40.8
== END | disposition home or self-care (01) ==
LOC: POLAB3 11:22
PROVIDERS: PCP Family Medicine Geriatric Medicine; Visit Provider Family Medicine Geriatric Medicine
DX: E03.9 Hypothyroidism, unspecified (principal)
CPT/HCPCS: 36415; 84443

== ENCOUNTER 2022-10-03 20:48 | Emergency (ER) | payer MEDICARE, SELFPAY ==
[2020-01-07 10:52] VITALS: BMI 40.8
[2022-10-03 20:49] VITALS: BP 166/89; PULSE 77; RESP 15; TEMP 36.6; O2SAT 98; BMI 41.0
--- NOTE | 2022-10-03 22:19 | EX.ED.DYSGE1 ---
HPI History of Present Illness Chief Complaint: Palpitations Informant: patient Onset/Context/Timing Onset: Today Narrative Narrative: Presents for evaluation transient racing heart this evening. She was laying down felt symptoms for nearly half hour. No lightheaded symptoms no chest pains. History of atrial fibrillation on Eliquis. She is also on carvedilol and digoxin. No recent vomiting or diarrhea. No recent upper respiratory infections. Currently asymptomatic. Prior similar symptoms: Yes PFSH PFS Medical History Acute gastrointestinal ulcer with perforation Acute renal injury Acute respiratory failure Atherosclerosis of coronary artery of [place] heart without angina pectoris Cataract Duodenal ulcer due to Helicobacter pylori Essential (primary) hypertension GI bleed Helicobacter pylori infection Hematoma History of conscious sedation Hyperlipidemia Hypersomnia Hypoxia Incomplete left bundle branch block Ischemic cardiomyopathy Meniere disease Obesity NEAL (obstructive sleep apnea) NEAL (obstructive sleep apnea) Osteoarthritis Paroxysmal atrial fibrillation Perforated duodenal ulcer Home Medications pravastatin 40 mg tablet 40 mg PO QHS 08/18/13 [History Last Taken Unknown] timolol maleate 0.25 % eye drops 1 drp EACH EYE QHS 08/18/13 [History Last Taken Unknown] ascorbic acid (vitamin C) 500 mg tablet 500 mg PO DAILY@0800 12/21/17 [History Last Taken Unknown] latanoprost 0.005 % eye drops 1 drp ophthalmic (eye) DAILY 11/25/19 [History Last Taken Unknown] apixaban 5 mg tablet (Eliquis) 5 mg PO BID #60 tabs 03/04/21 [Rx Last Taken Unknown] cholecalciferol (vitamin D3) 125 mcg (5,000 unit) tablet 125 mcg PO DAILY 03/13/21 [History Last Taken Unknown] methenamine mandelate 1 gram tablet 1 g PO QHS 03/13/21 [History Last Taken Unknown] digoxin 125 mcg (0.125 mg) tablet (Digox) 125 mcg PO DAILY #90 tabs 09/18/21 [Rx Last Taken Unknown] carvedilol 6.25 mg tablet 6.25 mg PO BID #180 tabs 03/28/22 [Rx Last Taken Unknown] furosemide 40 mg tablet 20 mg PO DAILY 04/10/22 [History Last Taken Unknown] icosapent ethyl 1 gram capsule (Vascepa) 2 g PO BID 04/10/22 [History Last Taken Unknown] levothyroxine 25 mcg capsule 25 mcg PO DAILY 10/03/22 [History Last Taken Unknown] omega-3 fatty acids 1,000 mg PO DAILY 10/03/22 [History Last Taken Unknown] Allergy/AdvReac Type Severity Reaction Status Date / Time adhesive Allergy Intermediate rash and Verified 10/03/22 20:49 itching tramadol HCl [From Ultram] AdvReac Vomiting Verified 10/03/22 20:49 Family History Father Cancer Mother Heart disease Surgical History H/O tubal ligation History of appendectomy History of coronary artery stent placement (12/14/19) History of esophagogastroduodenoscopy (EGD) History of hip replacement Social History Smoking Status: Never smoker second hand exposure: No alcohol intake: never substance use type: does not use caffeine: Yes Type: tea Number of servings: 1 what type of physical activity do you participate in: none ROS ROS ED Constitutional Constitutional ED: Denies chills, fever(s) or sweats Eyes Eyes: Denies change in vision ENT ENT ED: Denies dysphagia or sore throat Cardiovascular Cardiovascular: Reports racing heartbeat; Denies chest pain, leg edema or palpitations Respiratory/Chest Respiratory/Chest: Denies cough, dyspnea or dyspnea on exertion Gastrointestinal Gastrointestinal: Denies abdominal pain, diarrhea, nausea or vomiting Genitourinary Genitourinary ED: Denies dysuria, hematuria or urinary frequency Musculoskeletal Musculoskeletal: Denies back pain, extremity pain or neck pain Integumentary Denies rash or wounds Neurologic Neurologic: Denies headache(s), paresthesias or weakness EXAM Physical Exam Const Vital Signs: 10/03/22 20:49 Temperature 97.8 F Temperature Source Temporal Pulse Rate 77 Respiratory Rate 15 Blood Pressure 166/89 H Blood Pressure Mean 114 Pulse Ox 98 Oxygen Delivery Method Room Air Positive well nourished and well developed General Appearance ED: well developed and NAD HEENT Reports moist mucous membranes normocephalic and atraumatic Eyes PERRL, EOMs intact bilaterally and conjunctivae normal General Eye ED: Yes normal appearance of both eyes Neck no lymphadenopathy and supple General: Negative for tenderness Chest Wall Chest: Negative for tenderness Resp normal respiratory effort and normal air movement Effort and Inspection: symmetric chest movement; Negative for respiratory distress Cardio regular rate, regular rhythm and no murmurs Peripheral Pulses: pulses 2+ throughout GI normal to inspection, nondistended, normoactive bowel sounds and non-tender Palpation: Negative for guarding or rebound tenderness present Back/Spine no CVA tenderness and no thoracic nor lumbar tenderness Extremity normal to inspection General Extremety ED: Negative for edema or tenderness General Extremity: Negative for edema Neuro oriented x3 and no sensory deficits noted Sensorium / Orientation: awake and alert Skin no rashes or lesions noted and no wounds MDM MDM MDM Narrative Medical decision making narrative: Patient currently asymptomatic vital signs stable EKG is sinus rhythm. She had transient palpitations history of atrial fibrillation. Discussed possibility that she could have with atrial fibrillation that resolved however she is currently on Eliquis she is on digoxin and beta-blockers. Discussed no recent illness no vomiting. She remains asymptomatic. Do not feel further work-up is necessary at this time. However discussed if symptoms reoccurs and worsens and persists to return for reevaluation. She understands agrees with plan. Will be discharged with outpatient follow-up. All questions were answered. EKG Initial EKG: Attestation: I personally reviewed and interpreted this EKG as follows: Comments: Sinus rate of 62, no ST or T wave changes. Discharge Plan Triage Chief Complaint: Palpitations ED Provider: Ren Ortiz Dx/Rx/DC Orders Clinical Impression: Palpitation, History of atrial fibrillation Instructions: ED Palpitations Prescriptions: No Action latanoprost 0.005 % drops 1 drp OPHTHALMIC DAILY icosapent ethyl [Vascepa] 1 gram capsule 2 g PO BID furosemide 40 mg tablet 20 mg PO DAILY cholecalciferol (vitamin D3) 125 mcg (5,000 unit) tablet 125 mcg PO DAILY methenamine mandelate 1 gram tablet 1 g PO QHS pravastatin 40 MG tablet 40 mg PO QHS Label Comments: cholesterol timolol maleate 1 DROP drops 1 drp EACH EYE QHS Label Comments: glaucoma glaucoma ascorbic acid (vitamin C) 500 MG tablet 500 mg PO DAILY@0800 Eliquis 5 mg Tablet 5 mg PO BID Qty: 60 0RF Fish Oil Capsule 1,000 mg PO DAILY levothyroxine 25 mcg Capsule 25 mcg PO DAILY digoxin [Digox] 125 mcg (0.125 mg) tablet 125 mcg PO DAILY Qty: 90 3RF carvedilol 6.25 mg tablet 6.25 mg PO BID Qty: 180 3RF Primary Care Provider: Chris Mendez Chi Referrals: Chris Mendez Chi, MD [Primary Care Provider] - 1 Week Disposition Disposition: Home, Self Care
[2022-10-03 22:31] VITALS: PULSE 66; RESP 18; O2SAT 97
== END 2022-10-03 22:31 | disposition home or self-care (01) ==
PROVIDERS: Emergency Provider Emergency Medicine; PCP Family Medicine Geriatric Medicine; Visit Provider Emergency Medicine
DX: R00.2 Palpitations (principal); I48.91 Unspecified atrial fibrillation; I25.10 Atherosclerotic heart disease of native coronary artery without angina pectoris; E78.5 Hyperlipidemia, unspecified; I10 Essential (primary) hypertension; Z79.01 Long term (current) use of anticoagulants
CPT/HCPCS: 93005; 99282; A4216

== ENCOUNTER → 2022-10-11 | Outpatient (CLI) | payer MEDICARE, SELFPAY ==
[2020-01-07 10:52] VITALS: BMI 40.8
[2022-10-11 13:27] LABS: Absolute Lymphocyte Count 1.44 X10^3/uL (0.83-4.51); Absolute Neutrophil Count 4.2 X10^3/uL (2.0-7.7); Basophil# 0.03 X10^3/uL; Basophil% 0.5 % (0-1); Eosinophil# 0.26 X10^3/uL; Hematocrit 44.9 % (37-47); Hemoglobin 15.1 g/dL (12.0-15.0); Lymphocyte # 1.44 X10^3/ul (0.83-4.51); Mean Corp Hgb Conc 33.6 g/dL (32-36); Mean Corpuscular Hgb 30.5 pg (27.0-32.0); Mean Corpuscular Volume 90.7 fL (81-99); Mean Platelet Vol. 10.8 fl (6.2-12.0); Monocyte# 0.59 X10^3/uL; NRBC Flagged by Analyzer 0 % (0-5); Neutrophil # 4.22 X10^3/uL (2.7-7.7); Neutrophil % 64.3 % (47-70); Platelet Count 199 K/mm3 (150-450); RBC Distribution Width CV 12.5 % (11.6-14.6); Red Blood Count 4.95 M/mm3 (4.2-5.4); White Blood Count 6.6 K/mm3 (4.4-11.0)
[2022-10-11 13:40] LABS: Vitamin D,25 Hydroxy 29.2 ng/mL
[2022-10-11 13:58] LABS: ALB/GLOB Ratio 1.2 RATIO (0.9-2.4); AST(SGOT) 17 U/L (15-37); Alanine Aminotransfer ALT/SGPT 24 U/L (13-56); Albumin, Serum 3.7 g/dL (3.2-5.0); Alkaline Phosphatase 78 U/L (45-117); Anion Gap 6 (5-15); BUN 17 mg/dL (7-18); BUN/Creat Ratio 19.3 RATIO (10-20); Calcium,Total 9.1 mg/dL (8.5-10.1); Chloride 105 mmol/L (98-107); Creatinine, Serum 0.88 mg/dL (0.55-1.02); EST Glomerular Filtration Rate 65 mL/min (>60); Est Glom Filt Rate - Afr Amer 79 mL/min (>60); Globulin 3.1 g/dL (2.2-4.2); Glucose 154 mg/dL (74-106); Potassium 4.1 mmol/L (3.5-5.1); Protein, Total 6.8 g/dL (6.4-8.2); Sodium Level 141 mmol/L (136-145); Thyroid Stim Hormone (TSH) 2.57 uIU/mL (0.358-3.74)
== END | disposition home or self-care (01) ==
LOC: POLAB3 10:51
PROVIDERS: PCP Family Medicine Geriatric Medicine; Visit Provider Family Medicine Geriatric Medicine
DX: E55.9 Vitamin D deficiency, unspecified (principal); I10 Essential (primary) hypertension
CPT/HCPCS: 36415; 80053; 82306; 84443; 85025

== ENCOUNTER → 2022-12-18 | Outpatient (CLI) | payer MEDICARE, SELFPAY ==
[2020-01-07 10:52] VITALS: BMI 40.8
--- NOTE | 2022-12-18 13:05 | RAD_ITS ---
STUDY: X-RAY - ABDOMEN/PELVIS REASON FOR EXAM: Female, 82 years old. Fecal impaction. TECHNIQUE: AP supine and upright views of the abdomen and pelvis on 3 images. COMPARISON: CT of the abdomen and pelvis dated January 2017. FINDINGS: Normal visualized lung bases. Normal bowel gas pattern. There is no demonstrated free abdominal air. The visualized liver, spleen and kidneys are grossly normal in size and morphology. Normal soft tissue structures. Bilateral total hip arthroplasties. RAD/Abd Inc Decub and/or Erect IMPRESSION: No abnormality of the abdomen. Electronically Signed: Contreras Lopes, at 11:30 EST ,
== END | disposition home or self-care (01) ==
PROVIDERS: PCP Family Medicine Geriatric Medicine; Visit Provider Family Medicine Geriatric Medicine
DX: K56.41 Fecal impaction (principal); R19.7 Diarrhea, unspecified
CPT/HCPCS: 74019; 82274; 83630; 87177; 87209; 87493; 87506

== ENCOUNTER 2023-03-09 19:40 | Emergency (ER) | payer MEDICARE, SELFPAY ==
[2020-01-07 10:52] VITALS: BMI 40.8
[2023-03-09 19:41] VITALS: BP 135/78; PULSE 89; RESP 18; TEMP 36.6; O2SAT 92; BMI 41.1
[2023-03-09] MEDS: Tetracaine/Benzocaine/Butamben 1 APPLIC TOPICAL (20:03)
[2023-03-09] MEDS: Oxymetazoline 0.05% 1 SPRAY SPRAY.BTL 2 SPRAY NASAL (20:03)
--- NOTE | 2023-03-09 20:12 | EDS_ITS ---
HPI History of Present Illness Chief Complaint: Nosebleed Informant: patient Onset/Context/Timing Onset: Today Timing: Waxes and wanes Current Severity: Mild Maximum Severity: Moderate Narrative Narrative: Patient presents secondary to right-sided nosebleed. She states has been bleeding for the past 4 hours and it has been waxing and waning. She states she always has a runny nose but really has not had other URI symptoms. No facial trauma. Patient is on Eliquis for history of A-fib. She states she did have a nosebleed earlier in the week that stopped with pressure. [facility] Medical History Acute gastrointestinal ulcer with perforation Acute renal injury Acute respiratory failure Atherosclerosis of coronary artery of [place] heart without angina pectoris Cataract Duodenal ulcer due to Helicobacter pylori Essential (primary) hypertension GI bleed Helicobacter pylori infection Hematoma History of conscious sedation Hyperlipidemia Hypersomnia Hypoxia Incomplete left bundle branch block Ischemic cardiomyopathy Meniere disease Obesity NEAL (obstructive sleep apnea) NEAL (obstructive sleep apnea) Osteoarthritis Paroxysmal atrial fibrillation Perforated duodenal ulcer Home Medications pravastatin 40 mg tablet 40 mg PO QHS 08/18/13 [History Last Taken Unknown] timolol maleate 0.25 % eye drops 1 drp EACH EYE QHS 08/18/13 [History Last Taken Unknown] ascorbic acid (vitamin C) 500 mg tablet 500 mg PO DAILY@0800 12/21/17 [History Last Taken Unknown] latanoprost 0.005 % eye drops 1 drp ophthalmic (eye) DAILY 11/25/19 [History Last Taken Unknown] apixaban 5 mg tablet (Eliquis) 5 mg PO BID #60 tabs 03/04/21 [Rx Last Taken Unknown] cholecalciferol (vitamin D3) 125 mcg (5,000 unit) tablet 125 mcg PO DAILY 03/13/21 [History Last Taken Unknown] methenamine mandelate 1 gram tablet 1 g PO QHS 03/13/21 [History Last Taken Unknown] digoxin 125 mcg (0.125 mg) tablet (Digox) 125 mcg PO DAILY #90 tabs 09/18/21 [Rx Last Taken Unknown] carvedilol 6.25 mg tablet 6.25 mg PO BID #180 tabs 03/28/22 [Rx Last Taken Unknown] furosemide 40 mg tablet 20 mg PO DAILY 04/10/22 [History Last Taken Unknown] icosapent ethyl 1 gram capsule (Vascepa) 2 g PO BID 04/10/22 [History Last Taken Unknown] levothyroxine 25 mcg capsule 25 mcg PO DAILY 10/03/22 [History Last Taken Unknown] omega-3 fatty acids 1,000 mg PO DAILY 10/03/22 [History Last Taken Unknown] amoxicillin 500 mg tablet 500 mg PO BID #10 tabs 03/09/23 [Rx Last Taken Unknown] Allergy/AdvReac Type Severity Reaction Status Date / Time adhesive Allergy Intermediate rash and Verified 03/09/23 19:43 itching tramadol HCl [From Ultram] AdvReac Vomiting Verified 03/09/23 19:43 Family History Father Cancer Mother Heart disease Surgical History H/O tubal ligation History of appendectomy History of coronary artery stent placement (12/14/19) History of esophagogastroduodenoscopy (EGD) History of hip replacement Social History Smoking Status: Never smoker second hand exposure: No alcohol intake: never substance use type: does not use caffeine: Yes Type: tea Number of servings: 1 what type of physical activity do you participate in: none ROS ROS ED Constitutional Constitutional ED: Denies chills or fever(s) Eyes Eyes: Denies change in vision or discharge from eye(s) ENT ENT ED: Reports other Details: Right-sided nosebleed. ; Denies discharge from eye(s), rhinorrhea or sore throat Cardiovascular Cardiovascular: Denies chest pain Respiratory/Chest Respiratory/Chest: Denies cough or dyspnea Gastrointestinal Gastrointestinal: Denies abdominal pain, nausea or vomiting Genitourinary Genitourinary ED: Denies dysuria Musculoskeletal Musculoskeletal: Denies back pain or extremity pain Integumentary Denies Abrasions or rash Neurologic Neurologic: Denies headache(s) or weakness Psychiatric Psychiatric: Denies anxiety or depression Allergic/Immunologic Allergic/Immunologic ED: Denies lip swelling or urticaria EXAM Physical Exam Const Vital Signs: 03/09/23 19:41 Temperature 98 F Temperature Source Temporal Pulse Rate 89 Respiratory Rate 18 Blood Pressure 135/78 H Blood Pressure Mean 97 Pulse Ox 92 Positive well nourished and well developed General Appearance ED: well developed HEENT Reports normocephalic and head/scalp atraumatic HEENT Narrative: Mild bleeding from the right nare. Eyes PERRL and EOMs intact bilaterally Neck supple Chest Wall inspection of chest normal and palpation of chest normal Resp normal respiratory effort and clear to auscultation bilaterally Cardio regular rate and regular rhythm GI normal to inspection, nondistended, normoactive bowel sounds Palpation: soft Extremity normal to inspection Neuro oriented x3 and no sensory deficits noted Sensorium / Orientation: alert Motor Exam: strength 5/5 throughout Psych mental status grossly normal Skin no rashes or lesions noted MDM MDM MDM Narrative Medical decision making narrative: A cottonball soaked with Afrin and Cetacaine is placed in the right nare. After approximately 10 minutes this is removed. She does have mild bleeding. Merisel packing is placed in the right nostril. Patient is observed for approximately half an hour. She has had no further bleeding at this time. She is able to get up and ambulate in the hallways without further bleeding. I will give her a prescription for amoxicillin for t he next few days. She has seen Dr. Amezcua in the past and will be referred back to him. Discharge Plan Triage Chief Complaint: Nosebleed ED Provider: Simin Zaldivar Dx/Rx/DC Orders Clinical Impression: Epistaxis Instructions: ED Epistaxis (Adult) Prescriptions: New amoxicillin 500 mg tablet 500 mg PO BID Qty: 10 0RF No Action latanoprost 0.005 % drops 1 drp OPHTHALMIC DAILY icosapent ethyl [Vascepa] 1 gram capsule 2 g PO BID furosemide 40 mg tablet 20 mg PO DAILY cholecalciferol (vitamin D3) 125 mcg (5,000 unit) tablet 125 mcg PO DAILY methenamine mandelate 1 gram tablet 1 g PO QHS pravastatin 40 MG tablet 40 mg PO QHS Label Comments: cholesterol timolol maleate 1 DROP drops 1 drp EACH EYE QHS Label Comments: glaucoma glaucoma ascorbic acid (vitamin C) 500 MG tablet 500 mg PO DAILY@0800 Eliquis 5 mg Tablet 5 mg PO BID Qty: 60 0RF Fish Oil Capsule 1,000 mg PO DAILY levothyroxine 25 mcg Capsule 25 mcg PO DAILY digoxin [Digox] 125 mcg (0.125 mg) tablet 125 mcg PO DAILY Qty: 90 3RF carvedilol 6.25 mg tablet 6.25 mg PO BID Qty: 180 3RF Primary Care Provider: Chris Mendez Chi Referrals: Antonio Amezcua MD [Med Staff - Active Staff] - 3-5 Days Chris Mendez Chi, MD [Primary Care Provider] - Disposition Disposition: Home, Self Care
[2023-03-09] MEDS: AMOXICILLIN 500 MG CAPSULE PO (21:21)
[2023-03-09 21:23] VITALS: PULSE 92; RESP 16; O2SAT 97
== END 2023-03-09 21:23 | disposition home or self-care (01) ==
PROVIDERS: Emergency Provider Emergency Medicine; PCP Family Medicine Geriatric Medicine; Visit Provider Emergency Medicine
DX: R04.0 Epistaxis (principal); I25.10 Atherosclerotic heart disease of native coronary artery without angina pectoris; I10 Essential (primary) hypertension; E78.5 Hyperlipidemia, unspecified
CPT/HCPCS: 30901; 99283

== ENCOUNTER → 2023-03-28 | Outpatient (CLI) | payer MEDICARE, SELFPAY ==
[2020-01-07 10:52] VITALS: BMI 40.8
[2023-03-28 13:21] LABS: Absolute Lymphocyte Count 2.27 X10^3/uL (0.83-4.51); Absolute Neutrophil Count 5.1 X10^3/uL (2.0-7.7); Basophil# 0.05 X10^3/uL; Basophil% 0.6 % (0-1); Eosinophil# 0.23 X10^3/uL; Eosinophils% 2.7 % (0-5); Hematocrit 45.1 % (37-47); Hemoglobin 14.8 g/dL (12.0-15.0); Lymphocyte # 2.27 X10^3/ul (0.83-4.51); Lymphocyte % 27.1 % (19-41); Mean Corp Hgb Conc 32.8 g/dL (32-36); Mean Corpuscular Hgb 30.3 pg (27.0-32.0); Mean Corpuscular Volume 92.2 fL (81-99); Mean Platelet Vol. 10.4 fl (6.2-12.0); Monocyte% 8.3 % (0-10); NRBC Flagged by Analyzer 0 % (0-5); Neutrophil % 60.8 % (47-70); Platelet Count 209 K/mm3 (150-450); RBC Distribution Width CV 12.5 % (11.6-14.6); RBC Distribution Width SD 42.4 fl (35.1-43.9); Red Blood Count 4.89 M/mm3 (4.2-5.4); White Blood Count 8.4 K/mm3 (4.4-11.0)
[2023-03-28 13:33] LABS: Vitamin D,25 Hydroxy 35.5 ng/mL
[2023-03-28 14:32] LABS: ALB/GLOB Ratio 1.2 RATIO (0.9-2.4); AST(SGOT) 18 U/L (15-37); Alanine Aminotransfer ALT/SGPT 24 U/L (13-56); Albumin, Serum 3.6 g/dL (3.2-5.0); Alkaline Phosphatase 75 U/L (45-117); Anion Gap 5 (5-15); BUN 21 mg/dL (7-18); BUN/Creat Ratio 26.2 RATIO (10-20); Calcium,Total 8.8 mg/dL (8.5-10.1); Chloride 107 mmol/L (98-107); EST Glomerular Filtration Rate 72 mL/min (>60); Est Glom Filt Rate - Afr Amer 88 mL/min (>60); Globulin 3.1 g/dL (2.2-4.2); Glucose 112 mg/dL (74-106); Potassium 4.3 mmol/L (3.5-5.1); Protein, Total 6.7 g/dL (6.4-8.2); Sodium Level 142 mmol/L (136-145); Thyroid Stim Hormone (TSH) 1.71 uIU/mL (0.358-3.74)
== END | disposition home or self-care (01) ==
LOC: POLAB3 10:56
PROVIDERS: PCP Family Medicine Geriatric Medicine; Visit Provider Family Medicine Geriatric Medicine
DX: I10 Essential (primary) hypertension (principal); E55.9 Vitamin D deficiency, unspecified
CPT/HCPCS: 36415; 80053; 82306; 84443; 85025

== ENCOUNTER → 2023-05-14 | Outpatient (CLI) | payer MEDICARE, SELFPAY ==
[2020-01-07 10:52] VITALS: BMI 40.8
--- NOTE | 2023-05-14 16:50 | RAD_ITS ---
STUDY: X-RAY CHEST REASON FOR EXAM: Female, 83 years old. SOB TECHNIQUE: Frontal and lateral views of the chest. COMPARISON: 03/03/2021. FINDINGS: The lungs are clear and expanded. There is no demonstrated pleural abnormality. There is mild cardiac enlargement. Normal mediastinum and eddie. Normal visualized pulmonary arteries. There is atherosclerotic tortuosity of the aortic arch and descending thoracic aorta. There are diffuse degenerative changes of the visualized thoracic spine. Normal visualized ribs, clavicles, and shoulders. There is no demonstrated abnormality of the visualized soft tissue structures of the upper abdomen. RAD/Chest PA and Lateral IMPRESSION: No definite acute or significant abnormality seen. Electronically Signed: Alfonzo Abreu MD at 17:43 EDT ,
[2023-05-14 17:41] LABS: Basophil# 0.03 X10^3/uL; Basophil% 0.4 % (0-1); Eosinophils% 2.9 % (0-5); Hematocrit 46.2 % (37-47); Hemoglobin 15.4 g/dL (12.0-15.0); Lymphocyte % 30.1 % (19-41); Mean Corp Hgb Conc 33.3 g/dL (32-36); Mean Corpuscular Volume 90.1 fL (81-99); Mean Platelet Vol. 10.2 fl (6.2-12.0); Monocyte# 0.65 X10^3/uL; Monocyte% 9.3 % (0-10); NRBC Flagged by Analyzer 0 % (0-5); Neutrophil # 3.98 X10^3/uL (2.7-7.7); Platelet Count 205 K/mm3 (150-450); RBC Distribution Width CV 12.2 % (11.6-14.6); RBC Distribution Width SD 40.1 fl (35.1-43.9); Red Blood Count 5.13 M/mm3 (4.2-5.4)
[2023-05-14 18:46] LABS: ALB/GLOB Ratio 1.1 RATIO (0.9-2.4); AST(SGOT) 17 U/L (15-37); Albumin, Serum 3.9 g/dL (3.2-5.0); Alkaline Phosphatase 78 U/L (45-117); Anion Gap 4 (5-15); BUN 25 mg/dL (7-18); BUN/Creat Ratio 26.5 RATIO (10-20); Calcium,Total 9.6 mg/dL (8.5-10.1); Chloride 105 mmol/L (98-107); Creatinine, Serum 0.94 mg/dL (0.55-1.02); EST Glomerular Filtration Rate 60 mL/min (>60); Est Glom Filt Rate - Afr Amer 72 mL/min (>60); Globulin 3.6 g/dL (2.2-4.2); Glucose 106 mg/dL (74-106); Potassium 4.5 mmol/L (3.5-5.1); Protein, Total 7.5 g/dL (6.4-8.2); Sodium Level 138 mmol/L (136-145)
[2023-05-14 19:18] LABS: Alanine Aminotransfer ALT/SGPT 24 U/L (13-56)
== END | disposition home or self-care (01) ==
PROVIDERS: PCP Family Medicine Geriatric Medicine; Visit Provider Family Medicine Geriatric Medicine
DX: R06.02 Shortness of breath (principal)
CPT/HCPCS: 36415; 71046; 80053; 83880; 85025

== ENCOUNTER → 2023-06-27 | Outpatient (CLI) | payer MEDICARE, SELFPAY ==
[2020-01-07 10:52] VITALS: BMI 40.8
== END | disposition home or self-care (01) ==
LOC: POLAB3 17:24
PROVIDERS: PCP Family Medicine Geriatric Medicine; Visit Provider Family Medicine Geriatric Medicine
DX: N39.0 Urinary tract infection, site not specified (principal)
CPT/HCPCS: 87077; 87086; 87088; 87186

== ENCOUNTER 2023-07-20 12:53 | Emergency (ER) | payer MEDICARE, SELFPAY ==
[2020-01-07 10:52] VITALS: BMI 40.8
[2023-07-20 12:54] VITALS: BP 152/80; PULSE 74; RESP 20; TEMP 35.8; O2SAT 92; BMI 41.8
[2023-07-20 13:00] VITALS: BP 140/77; PULSE 72; RESP 20; O2SAT 93
--- NOTE | 2023-07-20 13:32 | EX.ED.DYSGE1 ---
HPI History of Present Illness Chief Complaint: Nosebleed Informant: patient Onset/Context/Timing Onset: Today Location: R nostril Current Severity: Gone Narrative Narrative: Patient in a right-sided nosebleed that started this morning. She takes Xarelto for A-fib. Bleeding stopped now that she is here. She had these before and has required packing. She denies any trauma or any other complaints. [facility] Medical History Acute gastrointestinal ulcer with perforation Acute renal injury Acute respiratory failure Atherosclerosis of coronary artery of [place] heart without angina pectoris Cataract Duodenal ulcer due to Helicobacter pylori Essential (primary) hypertension GI bleed Helicobacter pylori infection Hematoma History of conscious sedation Hyperlipidemia Hypersomnia Hypoxia Incomplete left bundle branch block Ischemic cardiomyopathy Meniere disease Obesity NEAL (obstructive sleep apnea) NEAL (obstructive sleep apnea) Osteoarthritis Paroxysmal atrial fibrillation Perforated duodenal ulcer Home Medications pravastatin 40 mg tablet 40 mg PO QHS 08/18/13 [History Last Taken Unknown] timolol maleate 0.25 % eye drops 1 drp EACH EYE QHS 08/18/13 [History Last Taken Unknown] ascorbic acid (vitamin C) 500 mg tablet 500 mg PO DAILY@0800 12/21/17 [History Last Taken Unknown] latanoprost 0.005 % eye drops 1 drp ophthalmic (eye) DAILY 11/25/19 [History Last Taken Unknown] cholecalciferol (vitamin D3) 125 mcg (5,000 unit) tablet 125 mcg PO DAILY 03/13/21 [History Last Taken Unknown] methenamine mandelate 1 gram tablet 1 g PO QHS 03/13/21 [History Last Taken Unknown] digoxin 125 mcg (0.125 mg) tablet (Digox) 125 mcg PO DAILY #90 tabs 09/18/21 [Rx Last Taken Unknown] furosemide 40 mg tablet 20 mg PO DAILY 04/10/22 [History Last Taken Unknown] icosapent ethyl 1 gram capsule (Vascepa) 2 g PO BID 04/10/22 [History Last Taken Unknown] levothyroxine 25 mcg capsule 25 mcg PO DAILY 10/03/22 [History Last Taken Unknown] carvedilol 6.25 mg tablet 6.25 mg PO BID #180 tabs 03/18/23 [Rx Last Taken Unknown] apixaban 2.5 mg tablet (Eliquis) 2.5 mg PO BID 04/11/23 [History Last Taken Unknown] sacubitril 97 mg-valsartan 103 mg tablet (Entresto) 1 tab PO BID 04/11/23 [History Last Taken Unknown] Allergy/AdvReac Type Severity Reaction Status Date / Time adhesive Allergy Intermediate rash and Verified 07/20/23 12:57 itching tramadol HCl [From Ultram] AdvReac Vomiting Verified 07/20/23 12:57 Family History Father Cancer Mother Heart disease Surgical History H/O tubal ligation History of appendectomy History of coronary artery stent placement (12/14/19) History of esophagogastroduodenoscopy (EGD) History of hip replacement Social History household members: none Smoking Status: Never smoker second hand exposure: No alcohol intake: never substance use type: does not use caffeine: Yes Type: tea Number of servings: 1 what type of physical activity do you participate in: none ROS ROS ED Constitutional Constitutional ED: Denies chills or fever(s) Eyes Eyes: Denies blurry vision ENT ENT ED: Denies ear pain, rhinorrhea or sore throat Cardiovascular Cardiovascular: Denies chest pain Respiratory/Chest Respiratory/Chest: Denies cough Gastrointestinal Gastrointestinal: Denies vomiting Genitourinary Genitourinary ED: Denies dysuria Musculoskeletal Musculoskeletal: Denies arthralgias Integumentary Denies abscess Neurologic Neurologic: Denies headache(s) Psychiatric Psychiatric: Denies anxiety Endocrine Endocrinology: Denies cold intolerance Allergic/Immunologic Allergic/Immunologic ED: Denies mouth swelling EXAM Physical Exam Const Vital Signs: 07/20/23 12:54 07/20/23 13:00 Temperature 96.5 F L Temperature Source Temporal Pulse Rate 74 72 Respiratory Rate 20 H 20 H Blood Pressure 152/80 H 140/77 H Blood Pressure Mean 104 98 Pulse Ox 92 93 Oxygen Delivery Method Room Air Room Air Positive well nourished and well developed General Appearance ED: well developed HEENT Reports moist mucous membranes HEENT Narrative: No bleeding Eyes EOMs intact bilaterally Neck no lymphadenopathy and supple Resp normal respiratory effort Cardio regular rate Neuro oriented x3 Sensorium / Orientation: alert Psych mental status grossly normal Skin no rashes or lesions noted MDM MDM MDM Narrative Medical decision making narrative: Bleeding has stopped. No indication for packing, meds, or cautery. Sounds like an anterior bleed and there is no evidence of posterior bleeding. Airway is intact. She does not appear to be anemic. Vitals are normal. No diagnostic testing is indicated. Patient was observed in the department for 1 hour. She had a p.o. challenge. She had no further bleeding will be discharged back to her home. I discussed with her that she may rebleed and have to return. Apply pressure and return if the bleeding does not resolve. Disposition is discharged home. Impression #1 right anterior epistaxis Discharge Plan Triage Chief Complaint: Nosebleed ED Provider: Forrest Mcclelland Dx/Rx/DC Orders Instructions: Nosebleed Prescriptions: No Action latanoprost 0.005 % drops 1 drp OPHTHALMIC DAILY icosapent ethyl [Vascepa] 1 gram capsule 2 g PO BID furosemide 40 mg tablet 20 mg PO DAILY cholecalciferol (vitamin D3) 125 mcg (5,000 unit) tablet 125 mcg PO DAILY methenamine mandelate 1 gram tablet 1 g PO QHS Entresto 97-103 mg tablet 1 tab PO BID Eliquis 2.5 mg tablet 2.5 mg PO BID pravastatin 40 MG tablet 40 mg PO QHS Patient Comments: cholesterol timolol maleate 1 DROP drops 1 drp EACH EYE QHS Patient Comments: glaucoma glaucoma ascorbic acid (vitamin C) 500 MG tablet 500 mg PO DAILY@0800 levothyroxine 25 mcg Capsule 25 mcg PO DAILY digoxin [Digox] 125 mcg (0.125 mg) tablet 125 mcg PO DAILY Qty: 90 3RF carvedilol 6.25 mg tablet 6.25 mg PO BID Qty: 180 3RF Primary Care Provider: Chris Mendez Chi Referrals: Chris Mendez Chi, MD [Primary Care Provider] - Disposition Disposition: Home, Self Care
== END 2023-07-20 14:00 | disposition home or self-care (01) ==
PROVIDERS: Emergency Provider Emergency Medicine; PCP Family Medicine Geriatric Medicine; Visit Provider Emergency Medicine
DX: R04.0 Epistaxis (principal); I48.91 Unspecified atrial fibrillation; I25.10 Atherosclerotic heart disease of native coronary artery without angina pectoris; E78.5 Hyperlipidemia, unspecified; I10 Essential (primary) hypertension; Z79.01 Long term (current) use of anticoagulants
CPT/HCPCS: 99284

== ENCOUNTER → 2023-07-25 | Outpatient (CLI) | payer MEDICARE, SELFPAY ==
[2020-01-07 10:52] VITALS: BMI 40.8
[2023-07-25 12:51] LABS: Anion Gap 3 (5-15); BUN 18 mg/dL (7-18); BUN/Creat Ratio 21.9 RATIO (10-20); Calcium,Total 9.1 mg/dL (8.5-10.1); Chloride 107 mmol/L (98-107); Creatinine, Serum 0.82 mg/dL (0.55-1.02); EST Glomerular Filtration Rate 70 mL/min (>60); Est Glom Filt Rate - Afr Amer 85 mL/min (>60); Glucose 126 mg/dL (74-106); Potassium 4.4 mmol/L (3.5-5.1); Sodium Level 140 mmol/L (136-145)
== END | disposition home or self-care (01) ==
LOC: POLAB3 11:45
PROVIDERS: PCP Family Medicine Geriatric Medicine; Visit Provider Family Medicine Geriatric Medicine
DX: I10 Essential (primary) hypertension (principal)
CPT/HCPCS: 36415; 80048

== ENCOUNTER → 2023-08-08 | Outpatient (CLI) | payer MEDICARE, SELFPAY ==
[2020-01-07 10:52] VITALS: BMI 40.8
[2023-08-08 13:05] LABS: Absolute Lymphocyte Count 1.74 X10^3/uL (0.83-4.51); Absolute Neutrophil Count 3.8 X10^3/uL (2.0-7.7); Basophil# 0.03 X10^3/uL; Basophil% 0.5 % (0-1); Eosinophil# 0.19 X10^3/uL; Hematocrit 44.8 % (37-47); Hemoglobin 14.7 g/dL (12.0-15.0); Lymphocyte # 1.74 X10^3/ul (0.83-4.51); Lymphocyte % 27.5 % (19-41); Mean Corp Hgb Conc 32.8 g/dL (32-36); Mean Corpuscular Hgb 29.8 pg (27.0-32.0); Mean Corpuscular Volume 90.7 fL (81-99); Mean Platelet Vol. 10.8 fl (6.2-12.0); Monocyte# 0.55 X10^3/uL; Monocyte% 8.7 % (0-10); NRBC Flagged by Analyzer 0 % (0-5); Platelet Count 179 K/mm3 (150-450); RBC Distribution Width CV 12.5 % (11.6-14.6); RBC Distribution Width SD 41.4 fl (35.1-43.9); Red Blood Count 4.94 M/mm3 (4.2-5.4); White Blood Count 6.3 K/mm3 (4.4-11.0)
[2023-08-08 13:43] LABS: ALB/GLOB Ratio 1.2 RATIO (0.9-2.4); AST(SGOT) 17 U/L (15-37); Alanine Aminotransfer ALT/SGPT 23 U/L (13-56); Albumin, Serum 3.7 g/dL (3.2-5.0); Alkaline Phosphatase 65 U/L (45-117); Anion Gap 4 (5-15); BUN 24 mg/dL (7-18); BUN/Creat Ratio 30.3 RATIO (10-20); Calcium,Total 9.1 mg/dL (8.5-10.1); Chloride 106 mmol/L (98-107); Creatinine, Serum 0.79 mg/dL (0.55-1.02); EST Glomerular Filtration Rate 73 mL/min (>60); Est Glom Filt Rate - Afr Amer 89 mL/min (>60); Globulin 3.1 g/dL (2.2-4.2); Glucose 109 mg/dL (74-106); Potassium 4.3 mmol/L (3.5-5.1); Protein, Total 6.8 g/dL (6.4-8.2); Sodium Level 139 mmol/L (136-145)
== END | disposition home or self-care (01) ==
LOC: POLAB3 11:57
PROVIDERS: PCP Family Medicine Geriatric Medicine; Visit Provider Family Medicine Geriatric Medicine
DX: I50.20 Unspecified systolic (congestive) heart failure (principal)
CPT/HCPCS: 36415; 80053; 85025

== ENCOUNTER → 2023-08-09 | Outpatient (CLI) | payer MEDICARE, SELFPAY ==
[2020-01-07 10:52] VITALS: BMI 40.8
--- NOTE | 2023-08-09 10:50 | BI_ITS ---
MAMMOGRAPHY - BILATERAL SCREENING REASON FOR EXAM: Female, 83 years old. Routine annual screening examination. PERTINENT HISTORY: Non-contributory. TECHNIQUE: Digital bilateral breast tony (3D mammographic acquisition) in the CC and MLO projections. 2-D mediolateral oblique (MLO) and craniocaudad (CC) views of both breasts were obtained. CAD: Full Field Digital Mammography with Computer Added Detection was performed. COMPARISON: Comparison is made with prior study dated August 06, 2022 and August 03, 2021. FINDINGS: Breast Composition: The breasts are heterogeneously dense, which may obscure small masses. There are no dominant masses or suspicious calcifications. Stable small benign appearing bilateral axillary lymph nodes. No other significant abnormalities are identified. There has been no significant change since the prior study. BI/SCRN MAMM (CAD)W/TONY BILAT IMPRESSION: Stable bilateral screening mammogram. Yearly follow-up mammogram recommended. (A) ASSESSMENT CATEGORY: BIRADS Category 2: Benign. A letter regarding these results will be sent to the patient by the facility within 30 days. Approximately 10% of breast cancers are not detected by mammography. A normal mammogram should not delay biopsy of a clinically suspicious abnormality. [id number] Electronically Signed: Carlos Gross MD at 13:39 EDT ,
== END | disposition home or self-care (01) ==
LOC: OPBI 10:49
PROVIDERS: PCP Family Medicine Geriatric Medicine; Referring Provider Family Medicine Geriatric Medicine; Visit Provider Family Medicine Geriatric Medicine
DX: Z12.31 Encounter for screening mammogram for malignant neoplasm of breast (principal)
CPT/HCPCS: 77063; 77067

== ENCOUNTER → 2023-08-26 | Outpatient (CLI) | payer MEDICARE, SELFPAY ==
[2020-01-07 10:52] VITALS: BMI 40.8
[2023-08-26 17:30] LABS: Absolute Neutrophil Count 4.6 X10^3/uL (2.0-7.7); Basophil# 0.03 X10^3/uL; Basophil% 0.4 % (0-1); Eosinophil# 0.23 X10^3/uL; Eosinophils% 3.1 % (0-5); Hematocrit 45.7 % (37-47); Hemoglobin 14.6 g/dL (12.0-15.0); Lymphocyte % 24.5 % (19-41); Mean Corp Hgb Conc 31.9 g/dL (32-36); Mean Corpuscular Hgb 29.2 pg (27.0-32.0); Mean Corpuscular Volume 91.4 fL (81-99); Mean Platelet Vol. 10.2 fl (6.2-12.0); Monocyte# 0.65 X10^3/uL; Monocyte% 8.8 % (0-10); NRBC Flagged by Analyzer 0 % (0-5); Neutrophil # 4.62 X10^3/uL (2.7-7.7); Neutrophil % 62.8 % (47-70); Platelet Count 180 K/mm3 (150-450); RBC Distribution Width CV 12.5 % (11.6-14.6); RBC Distribution Width SD 41.4 fl (35.1-43.9); White Blood Count 7.4 K/mm3 (4.4-11.0)
--- NOTE | 2023-08-26 17:30 | RAD_ITS ---
INDICATION: HEART FAILURE WITH REDUCED EJECTION FRACTION EXAMINATION/TECHNIQUE: X-RAY - frontal and lateral views of chest COMPARISON: Two-view chest x-ray from 05/14/2023 FINDINGS: LINES/DEVICES: None. LUNGS: No overt pulmonary edema or focal airspace consolidation. Stable linear scarlike opacity left midlung. Stable mildly elevated right hemidiaphragm. No sizable pleural effusion. No detectable pneumothorax. MEDIASTINUM AND CARDIOVASCULAR STRUCTURES: Stable slightly enlarged heart shadow. Atherosclerotic calcifications along tortuous thoracic aorta. BONES AND SOFT TISSUES: Skeletal degenerative changes. RAD/Chest PA and Lateral IMPRESSION: Cardiomegaly with no acute pulmonary airspace disease. Electronically Signed: Kedar Bush MD at 4:42 EDT ,
[2023-08-26 18:20] LABS: AST(SGOT) 16 U/L (15-37); Alanine Aminotransfer ALT/SGPT 20 U/L (13-56); Albumin, Serum 3.6 g/dL (3.2-5.0); Alkaline Phosphatase 86 U/L (45-117); Anion Gap 4 (5-15); BUN 28 mg/dL (7-18); BUN/Creat Ratio 34.5 RATIO (10-20); Calcium,Total 9.3 mg/dL (8.5-10.1); Chloride 107 mmol/L (98-107); Creatinine, Serum 0.81 mg/dL (0.55-1.02); EST Glomerular Filtration Rate 71 mL/min (>60); Est Glom Filt Rate - Afr Amer 86 mL/min (>60); Globulin 3.5 g/dL (2.2-4.2); Glucose 104 mg/dL (74-106); Potassium 4.5 mmol/L (3.5-5.1); Protein, Total 7.1 g/dL (6.4-8.2); Sodium Level 140 mmol/L (136-145)
[2023-08-26 19:29] LABS: BNP,B-Type NATRIURETIC PEPTIDE 75.5 pg/mL (0-100)
== END | disposition home or self-care (01) ==
LOC: POLAB3 17:12
PROVIDERS: PCP Family Medicine Geriatric Medicine; Visit Provider Family Medicine Geriatric Medicine
DX: I50.20 Unspecified systolic (congestive) heart failure (principal)
CPT/HCPCS: 36415; 71046; 80053; 83880; 85025; 85379

== ENCOUNTER → 2023-08-27 | Outpatient (CLI) | payer MEDICARE, SELFPAY ==
[2020-01-07 10:52] VITALS: BMI 40.8
--- NOTE | 2023-08-27 11:28 | CT_ITS ---
STUDY: CTA CHEST REASON FOR EXAM: Female, 83 years old. Shortness of breath for couple of days, elevated d-dimer. RADIATION DOSAGE (If Supplied By Facility): CTDIvol = ( 13.21 ) mGy, DLP = ( 442.87 ) mGycm TECHNIQUE: The examination was performed with the intravenous administration of IV 100mL Isovue-370. Post-processing of the angiographic images was performed, with multiplanar reformation and 3D reconstruction. Individualized dose optimization techniques were used for this CT. COMPARISON: None. FINDINGS: Smaller left lung volume with mild interstitial scarring and subsegmental atelectasis seen in the middle one third region down to the lingula. No demonstrated pneumonic consolidation of either lung. Mild interstitial scarring in the bilateral lung bases. No active pulmonary edema is present. No pleural effusion is seen. Normal enhancement of the main pulmonary artery and right and left pulmonary arteries. Normal enhancement of the bilateral peripheral pulmonary arteries. There is no demonstrated pulmonary embolism. There is atherosclerotic calcification of the aortic arch with tortuosity. Moderate aneurysmal dilatation of the ascending aorta 4.82 cm. There is no demonstrated aortic dissection. Normal heart and pericardium. There are calcifications of the coronary arteries. Normal mediastinum. Normal hilar regions. Normal visualized trachea and bronchi. The lungs are well expanded. Normal pleura. Normal chest wall structures. There are degenerative changes of thoracic spine. Upper abdomen included: Small hiatal hernia noted. The remaining structures are grossly unremarkable. CT/CTA Chest W/WO Contrast IMPRESSION: 1. No demonstrated pulmonary embolism or arterial dissection. 2. Smaller left lung volume with mild interstitial scarring and subsegmental atelectasis seen in the middle one third region down to the lingula. No demonstrated pneumonic consolidation of either lung. Mild interstitial scarring in the bilateral lung bases. No active pulmonary edema is present. No pleural effusion is seen. Electronically Signed: Gregor Pastrana MD at 12:52 EDT ,
== END | disposition home or self-care (01) ==
LOC: CT 11:26
PROVIDERS: PCP Family Medicine Geriatric Medicine; Referring Provider Family Medicine Geriatric Medicine; Visit Provider Family Medicine Geriatric Medicine
DX: I26.99 Other pulmonary embolism without acute cor pulmonale (principal)
CPT/HCPCS: 71275; Q9967

== ENCOUNTER → 2023-09-03 | Outpatient (CLI) | payer MEDICARE, SELFPAY ==
[2020-01-07 10:52] VITALS: BMI 40.8
--- NOTE | 2023-09-04 07:58 | PFT ---
INTRODUCTION: The patient is an 83-year-old female who presents for pulmonary function studies secondary to a diagnosis of shortness of breath. Respiratory therapy reported good patient effort. Bronchodilators were used during testing. INTERPRETATION: Forced expiration spirometry demonstrates no evidence of a large airways obstructive ventilatory defect. The reduced FVC suggests a potential restrictive ventilatory impairment. However, lung volumes and diffusing capacity were not completed. There was no significant bronchodilator response. IMPRESSION: Spirometry was suggestive of a restrictive ventilatory impairment. However, lung volumes would need to be completed to confirm this assertion.
== END | disposition home or self-care (01) ==
LOC: PSN 10:33
PROVIDERS: PCP Family Medicine Geriatric Medicine; Referring Provider Family Medicine Geriatric Medicine; Visit Provider Family Medicine Geriatric Medicine
DX: R06.02 Shortness of breath (principal)
CPT/HCPCS: 94060

== ENCOUNTER → 2023-09-24 | Outpatient (CLI) | payer MEDICARE, SELFPAY ==
[2020-01-07 10:52] VITALS: BMI 40.8
[2023-09-24 12:32] LABS: Absolute Lymphocyte Count 1.73 X10^3/uL (0.83-4.51); Absolute Neutrophil Count 3.5 X10^3/uL (2.0-7.7); Basophil# 0.03 X10^3/uL; Basophil% 0.5 % (0-1); Eosinophil# 0.28 X10^3/uL; Eosinophils% 4.5 % (0-5); Hematocrit 45.6 % (37-47); Hemoglobin 14.6 g/dL (12.0-15.0); Lymphocyte # 1.73 X10^3/ul (0.83-4.51); Lymphocyte % 27.6 % (19-41); Mean Corpuscular Hgb 29.3 pg (27.0-32.0); Mean Corpuscular Volume 91.6 fL (81-99); Mean Platelet Vol. 10.4 fl (6.2-12.0); Monocyte# 0.72 X10^3/uL; Monocyte% 11.5 % (0-10); NRBC Flagged by Analyzer 0 % (0-5); Neutrophil # 3.48 X10^3/uL (2.7-7.7); Neutrophil % 55.6 % (47-70); Platelet Count 195 K/mm3 (150-450); RBC Distribution Width CV 12.7 % (11.6-14.6); RBC Distribution Width SD 42.4 fl (35.1-43.9); Red Blood Count 4.98 M/mm3 (4.2-5.4); White Blood Count 6.3 K/mm3 (4.4-11.0)
[2023-09-24 12:47] LABS: Vitamin D,25 Hydroxy 39.4 ng/mL
[2023-09-24 13:04] LABS: AST(SGOT) 16 U/L (15-37); Alanine Aminotransfer ALT/SGPT 19 U/L (13-56); Albumin, Serum 3.5 g/dL (3.2-5.0); Alkaline Phosphatase 88 U/L (45-117); Anion Gap 5 (5-15); BUN 19 mg/dL (7-18); Calcium,Total 9.5 mg/dL (8.5-10.1); Chloride 103 mmol/L (98-107); Creatinine, Serum 0.86 mg/dL (0.55-1.02); EST Glomerular Filtration Rate 66 mL/min (>60); Est Glom Filt Rate - Afr Amer 80 mL/min (>60); Globulin 3.4 g/dL (2.2-4.2); Glucose 147 mg/dL (74-106); Potassium 4.4 mmol/L (3.5-5.1); Protein, Total 6.9 g/dL (6.4-8.2); Sodium Level 138 mmol/L (136-145); Thyroid Stim Hormone (TSH) 2.49 uIU/mL (0.358-3.74)
== END | disposition home or self-care (01) ==
LOC: POLAB3 11:47
PROVIDERS: PCP Family Medicine Geriatric Medicine; Visit Provider Family Medicine Geriatric Medicine
DX: E11.65 Type 2 diabetes mellitus with hyperglycemia (principal); I10 Essential (primary) hypertension; E55.9 Vitamin D deficiency, unspecified
CPT/HCPCS: 36415; 80053; 82306; 83036; 84443; 85025

== ENCOUNTER → 2023-10-01 | Outpatient (CLI) | payer MEDICARE, SELFPAY ==
[2020-01-07 10:52] VITALS: BMI 40.8
[2023-10-01 13:45] VITALS: PULSE 102; PULSE 108; PULSE 79; PULSE 89; PULSE 96; PULSE 98; O2SAT 84; O2SAT 88; O2SAT 89; O2SAT 90; O2SAT 91; O2SAT 92; O2SAT 93; O2SAT 94
--- NOTE | 2023-10-01 14:18 | CPS ---
pt arrived on room air. Sats 89% started walk at 1min sats dropped to 88% placed on 2L NC. Increased sats to 92%. At 4 min had to increase to 3L due to sats back at 88%walked the continued amount on 3L sats remained above 90%
--- NOTE | 2023-10-01 17:31 | PCM.PSN.6M ---
PSN 6 Minute Walk Test 6 Minute Walk Test 6 Minute Walk Test: 6 Minute Walk Test PSN:6-Minute Walk Test Start: 10/01/23 14:14 Freq: Status: Active Protocol: RESP.6MINW Document 10/01/23 13:45 EW (Rec: 10/01/23 14:21 EW Desktop) 6 Minute Walk Test Date Performed 10/01/23 Time Performed 13:45 Height 5 ft Weight: 95.254 kg Weight in Pounds 210.[address]: Pk Vines Assistive device used: Walker Pre-test Oxygen Delivery Method Room Air Pulse Ox 89 Pulse Rate (60-100) 79 Dyspnea King Scale (0-10) 2 Exertion King Scale (6-20) 6 1st minute Oxygen Delivery Method Room Air Pulse Ox 84 Pulse Rate (60-100) 96 2nd minute Oxygen Flow Rate (L/min) 2 Oxygen Delivery Method Nasal Cannula Pulse Ox 93 Pulse Rate (60-100) 96 3rd minute Oxygen Flow Rate (L/min) 2 Oxygen Delivery Method Nasal Cannula Pulse Ox 91 Pulse Rate (60-100) 96 Number of Rests Taken 1 Reported Symptoms Increased Work of Breathing 4th minute Oxygen Flow Rate (L/min) 2 Oxygen Delivery Method Nasal Cannula Pulse Ox 88 Pulse Rate (60-100) 108 H 5th minute Oxygen Flow Rate (L/min) 3 Oxygen Delivery Method Nasal Cannula Pulse Ox 94 Pulse Rate (60-100) 98 Number of Rests Taken 1 Reported Symptoms Increased Work of Breathing 6th minute Oxygen Flow Rate (L/min) 3 Oxygen Delivery Method Nasal Cannula Pulse Ox 90 Pulse Rate (60-100) 102 H Post-test Oxygen Flow Rate (L/min) 3 Oxygen Delivery Method Nasal Cannula Pulse Ox 92 Pulse Rate (60-100) 89 Dyspnea King Scale (0-10) 3 Exertion King Scale (6-20) 11 Reported Symptoms Increased Work of Breathing Full Laps Walked 8 Partial Lap, Number of Tiles Walked 0 Total Distance Walked (ft) 472 10/01/23 14:18 Cardiopulmonary Services by Elsi Wesley pt arrived on room air. Sats 89% started walk at 1min sats dropped to 88% placed on 2L NC. Increased sats to 92%. At 4 min had to increase to 3L due to sats back at 88%walked the continued amount on 3L sats remained above 90% Initialized on 10/01/23 14:18 - END OF NOTE Interpretation Interpretation: The patient was noted to be 89% on room air at rest. The patient did desaturate to 84% in the first minute of ambulation and was placed on 2 L. The patient required up to 3 L nasal cannula to maintain saturations throughout testing. In total, the patient traveled 472 feet over the course of 6 minutes with the assistance of a walker and 3 breaks. These findings are consistent with a respiratory limitation exercise tolerance. Recommendations Recommendations: The patient requires no supplemental oxygen at rest, but should be using 3 L/min with any exertion
== END | disposition home or self-care (01) ==
LOC: PSN 13:40
PROVIDERS: PCP Family Medicine Geriatric Medicine; Referring Provider Internal Medicine Critical Care Medicine; Visit Provider Internal Medicine Critical Care Medicine
DX: R06.09 Other forms of dyspnea (principal); G47.33 Obstructive sleep apnea (adult) (pediatric)
CPT/HCPCS: 94618

== ENCOUNTER → 2023-12-17 | Outpatient (CLI) | payer MEDICARE, SELFPAY ==
[2020-01-07 10:52] VITALS: BMI 40.8
--- OUTSIDE RECORDS SUMMARY | 2023-12-17 10:19 | XMS RPT_ITS | CCD ---
Author Name Unknown Address [address] [place] [address] Organization [facility] Care Team Providers Care Manager Heavy Equipment Name Role Phone GUS HARO Unavailable Unavailable Allergies Allergy Classification Reported Allergen(s) Allergy Type Date of Onset Reaction(s) Facility (1 source) traMADol; Translations: [TRAMADOL] Drug Allergy 2 [facility] Repository (1 source) NITROFURANTOIN MONOHYD/M-CRYST; Translations: [NITROFURANTOIN MONOHYD/M-CRYST] Propensity to adverse reactions to drug (disorder) 6 [facility] Repository Problems Problem Classification Problem Date Documented Da te Episodic/Chronic Unclassified (1 source) Encounter for screening mammogram for malignant neoplasm of breast; Translations: [Encounter for screening mammogram for malignant neoplasm of breast] Onset: 06-30-2018 Episodic Results Test Name Value Interpretation Reference Range Facil ity Encounters Encounter Date Encounter Type Care Provider Facility Start: 06-30-2018 End: 06-30-2018 Patient encounter GUS HARO [facility] Summary Purpose Family History No Family History Records Found Advance Directives No Advanced Directives Records Found Additional Source Comments INFORMATION SOURCE (unrecogn ized section and content) FOR RECORDS PERTAINING TO PATIENTS WHO ARE OR HAVE BEEN ENROLLED IN A CHEMICAL DEPENDENCY/SUBSTANCEABUSE PROGRAM, SOME INFORMATION MAY BE OMITTED. This clinical summary was aggregated from multiple sources. Caution should be exercised in using it in the provision of clinical care. This summary normalizes information from multiple sources, and as a consequence, information in this document may materially change the coding, format and clinical context of patient data. In addition, data may be omitted in some cases. CLINICAL DECISIONS SHOULD BE BASED ON THE PRIMARY CLINICAL RECORDS. [facility]. provides no warranty or guarantee of the accuracy or completeness of information in this document.
== END | disposition home or self-care (01) ==
LOC: PSN 09:45
PROVIDERS: PCP Family Medicine Geriatric Medicine; Referring Provider Internal Medicine Critical Care Medicine; Visit Provider Internal Medicine Critical Care Medicine
DX: R06.09 Other forms of dyspnea (principal); G47.33 Obstructive sleep apnea (adult) (pediatric)
CPT/HCPCS: 94060; 94726; 94729

== ENCOUNTER → 2023-12-31 | Outpatient (CLI) | payer MEDICARE, SELFPAY ==
[2020-01-07 10:52] VITALS: BMI 40.8
--- OUTSIDE RECORDS SUMMARY | 2023-12-31 10:24 | XMS RPT_ITS | CCD ---
Author Name Unknown Address [address] [place] [address] Organization [facility] Care Team Providers Care Plaster Mold Maker Name Role Phone GUS HARO Unavailable Unavailable Allergies Allergy Classification Reported Allergen(s) Allergy Type Date of Onset Reaction(s) Facility (1 source) traMADol; Translations: [TRAMADOL] Drug Allergy 2 [facility] Repository (1 source) NITROFURANTOIN MONOHYD/M-CRYST; Translations: [NITROFURANTOIN MONOHYD/M-CRYST] Propensity to adverse reactions to drug (disorder) 6 [facility] Repository Problems Problem Classification Problem Date Documented Da te Episodic/Chronic Unclassified (1 source) Encounter for screening mammogram for malignant neoplasm of breast; Translations: [Encounter for screening mammogram for malignant neoplasm of breast] Onset: 06-30-2018 Episodic Results Test Name Value Interpretation Reference Range Facil ity Encounters Encounter Date Encounter Type Care Provider Facility Start: 06-30-2018 End: 06-30-2018 Patient encounter GUS HARO [facility] Summary Purpose Family History No Family History [...] BE BASED ON THE PRIMARY CLINICAL RECORDS. [facility] [employer] [facility]. provides no warranty or guarantee of the accuracy or completeness of information in this document.
== END | disposition home or self-care (01) ==
LOC: SL 09:24
PROVIDERS: PCP Family Medicine Geriatric Medicine; Referring Provider Nurse Practitioner Acute Care; Visit Provider Nurse Practitioner Acute Care
DX: J44.9 Chronic obstructive pulmonary disease, unspecified (principal); R09.02 Hypoxemia; G47.33 Obstructive sleep apnea (adult) (pediatric)
CPT/HCPCS: 98960; G0463

== ENCOUNTER → 2024-03-31 | Outpatient (CLI) | payer MEDICARE, SELFPAY ==
[2020-01-07 10:52] VITALS: BMI 40.8
[2024-03-31 12:47] LABS: Absolute Lymphocyte Count 1.96 X10^3/uL (0.83-4.51); Absolute Neutrophil Count 4.5 X10^3/uL (2.0-7.7); Basophil# 0.04 X10^3/uL; Basophil% 0.5 % (0-1); Eosinophil# 0.19 X10^3/uL; Eosinophils% 2.5 % (0-5); Hematocrit 44.4 % (37-47); Hemoglobin 14.5 g/dL (12.0-15.0); Lymphocyte # 1.96 X10^3/ul (0.83-4.51); Lymphocyte % 26.1 % (19-41); Mean Corp Hgb Conc 32.7 g/dL (32-36); Mean Corpuscular Hgb 29.7 pg (27.0-32.0); Mean Corpuscular Volume 90.8 fL (81-99); Mean Platelet Vol. 9.9 fl (6.2-12.0); Monocyte# 0.78 X10^3/uL; Monocyte% 10.4 % (0-10); NRBC Flagged by Analyzer 0 % (0-5); Neutrophil # 4.51 X10^3/uL (2.7-7.7); Neutrophil % 60.2 % (47-70); Platelet Count 188 K/mm3 (150-450); RBC Distribution Width CV 12.7 % (11.6-14.6); RBC Distribution Width SD 42.1 fl (35.1-43.9); Red Blood Count 4.89 M/mm3 (4.2-5.4); White Blood Count 7.5 K/mm3 (4.4-11.0)
[2024-03-31 13:12] LABS: Vitamin D,25 Hydroxy 34.7 ng/mL
[2024-03-31 13:25] LABS: ALB/GLOB Ratio 1.1 RATIO (0.9-2.4); AST(SGOT) 17 U/L (15-37); Alanine Aminotransfer ALT/SGPT 17 U/L (13-56); Albumin, Serum 3.5 g/dL (3.2-5.0); Alkaline Phosphatase 64 U/L (45-117); Anion Gap 4 (5-15); BUN 22 mg/dL (7-18); BUN/Creat Ratio 24.7 RATIO (10-20); Calcium,Total 9.3 mg/dL (8.5-10.1); Chloride 107 mmol/L (98-107); Creatinine, Serum 0.89 mg/dL (0.55-1.02); EST Glomerular Filtration Rate 64 mL/min (>60); Est Glom Filt Rate - Afr Amer 77 mL/min (>60); Globulin 3.2 g/dL (2.2-4.2); Glucose 101 mg/dL (74-106); Potassium 4.6 mmol/L (3.5-5.1); Protein, Total 6.7 g/dL (6.4-8.2); Sodium Level 139 mmol/L (136-145); Thyroid Stim Hormone (TSH) 2.33 uIU/mL (0.358-3.74)
== END | disposition home or self-care (01) ==
LOC: LAB 11:51
PROVIDERS: PCP Family Medicine Geriatric Medicine; Referring Provider Family Medicine Geriatric Medicine; Visit Provider Family Medicine Geriatric Medicine
DX: E11.65 Type 2 diabetes mellitus with hyperglycemia (principal); I10 Essential (primary) hypertension; E55.9 Vitamin D deficiency, unspecified
CPT/HCPCS: 36415; 80053; 82306; 84443; 85025

== ENCOUNTER → 2024-07-30 | Outpatient (CLI) | payer MEDICARE, SELFPAY ==
[2020-01-07 10:52] VITALS: BMI 40.8
--- NOTE | 2024-07-30 16:20 | RAD_ITS ---
EXAM: XR CHEST, 2 VIEWS CLINICAL INDICATION: SOB TECHNIQUE: Frontal and lateral views of the chest. COMPARISON: 08/26/2023 FINDINGS: LUNGS AND PLEURAL SPACES: Unremarkable. No consolidation or edema. No pneumothorax. No effusion. HEART: Cardiac silhouette is mildly enlarged in size but stable. MEDIASTINUM: Central airways and mediastinal contour are unremarkable. BONES/JOINTS: Unremarkable. No acute fracture. SOFT TISSUES: Unremarkable. RAD/Chest PA and Lateral IMPRESSION: Stable cardiomegaly with no acute pulmonary abnormality. Electronically Signed: Domingo Damon MD at 23:56 EDT ,
[2024-07-30 17:06] LABS: Absolute Lymphocyte Count 1.61 X10^3/uL (0.83-4.51); Absolute Neutrophil Count 3.7 X10^3/uL (2.0-7.7); Basophil# 0.03 X10^3/uL; Basophil% 0.5 % (0-1); Eosinophil# 0.15 X10^3/uL; Eosinophils% 2.4 % (0-5); Hematocrit 46.7 % (37-47); Hemoglobin 15.2 g/dL (12.0-15.0); Lymphocyte # 1.61 X10^3/ul (0.83-4.51); Lymphocyte % 25.6 % (19-41); Mean Corp Hgb Conc 32.5 g/dL (32-36); Mean Corpuscular Hgb 29.2 pg (27.0-32.0); Mean Corpuscular Volume 89.8 fL (81-99); Mean Platelet Vol. 9.8 fl (6.2-12.0); Monocyte% 12.7 % (0-10); NRBC Flagged by Analyzer 0 % (0-5); Neutrophil # 3.67 X10^3/uL (2.7-7.7); Neutrophil % 58.2 % (47-70); Platelet Count 178 K/mm3 (150-450); RBC Distribution Width CV 12.5 % (11.6-14.6); RBC Distribution Width SD 41.4 fl (35.1-43.9); White Blood Count 6.3 K/mm3 (4.4-11.0)
[2024-07-30 17:37] LABS: ALB/GLOB Ratio 1.1 RATIO (0.9-2.4); AST(SGOT) 21 U/L (15-37); Alanine Aminotransfer ALT/SGPT 21 U/L (13-56); Albumin, Serum 3.8 g/dL (3.2-5.0); Alkaline Phosphatase 78 U/L (45-117); Anion Gap 4 (5-15); BUN 12 mg/dL (7-18); BUN/Creat Ratio 16.5 RATIO (10-20); Calcium,Total 9.3 mg/dL (8.5-10.1); Chloride 104 mmol/L (98-107); Creatinine, Serum 0.73 mg/dL (0.55-1.02); EST Glomerular Filtration Rate 81 mL/min (>60); Est Glom Filt Rate - Afr Amer 98 mL/min (>60); Globulin 3.4 g/dL (2.2-4.2); Glucose 111 mg/dL (74-106); Potassium 4.2 mmol/L (3.5-5.1); Protein, Total 7.2 g/dL (6.4-8.2); Sodium Level 139 mmol/L (136-145)
[2024-07-30 17:40] LABS: D-Dimer Quantitative (DVT/PE) 0.89 FEU/ug/m (0.27-0.49)
[2024-07-30 17:42] LABS: BNP,B-Type NATRIURETIC PEPTIDE 131.9 pg/mL (0-100); Digoxin Level 0.83 ng/mL (0.80-2.00)
== END | disposition home or self-care (01) ==
PROVIDERS: PCP Family Medicine Geriatric Medicine; Referring Provider Family Medicine Geriatric Medicine; Visit Provider Family Medicine Geriatric Medicine
DX: I11.0 Hypertensive heart disease with heart failure (principal); I50.20 Unspecified systolic (congestive) heart failure; R53.83 Other fatigue; R06.02 Shortness of breath; N39.0 Urinary tract infection, site not specified; R68.83 Chills (without fever)
CPT/HCPCS: 36415; 71046; 80053; 80162; 83880; 84443; 85025; 85379; 87631

== ENCOUNTER → 2024-07-31 | Outpatient (CLI) | payer MEDICARE, SELFPAY ==
[2020-01-07 10:52] VITALS: BMI 40.8
[2024-07-31 12:16] LABS: Color, Urine Yellow (Yellow); Glucose, Dipstick Normal (Normal); Ketone-Dipstick Negative (Negative); Leukocyte Esterase-Dipstick 100 /ul (Negative); Nitrite-Dipstick Negative (Negative); Occult Blood-Urine 10 /ul (Negative); Protein-Dipstick 15 mg/dl (Negative); Urine Bilirubin Dipstick Negative (Negative); Urine Clarity Sl. Cloudy (Clear); Urine Urobilinogen Normal (Normal)
== END | disposition home or self-care (01) ==
LOC: LAB 11:33
PROVIDERS: PCP Family Medicine Geriatric Medicine; Referring Provider Family Medicine Geriatric Medicine; Visit Provider Family Medicine Geriatric Medicine
DX: I11.0 Hypertensive heart disease with heart failure (principal); I50.20 Unspecified systolic (congestive) heart failure; R53.83 Other fatigue; R06.02 Shortness of breath; N39.0 Urinary tract infection, site not specified
CPT/HCPCS: 81002; 87086; 87088

== ENCOUNTER → 2024-08-05 | Outpatient (CLI) | payer MEDICARE, SELFPAY ==
[2020-01-07 10:52] VITALS: BMI 40.8
--- NOTE | 2024-08-05 10:38 | CT_ITS ---
STUDY: CTA CHEST REASON FOR EXAM: Female, 84 years old. Other pulmonary embolism without acute cor pulmonale RADIATION DOSAGE (If Supplied By Facility): CTDIvol = ( 12.87 ) mGy, DLP = ( 365.96 ) mGycm TECHNIQUE: The examination was performed with the intravenous administration of ISOVUE 370-100ml. Post-processing of the angiographic images was performed, with multiplanar reformation and 3D reconstruction. Individualized dose optimization techniques were used for this CT. COMPARISON: Comparison is made with prior chest radiograph dated July 30, [address] scan of the thorax August 27, 2023. FINDINGS: Normal enhancement of the main pulmonary artery and right and left pulmonary arteries. Normal enhancement of the bilateral peripheral pulmonary arteries. There is no demonstrated pulmonary embolism. Normal thoracic aorta and visualized great vessels. There is no demonstrated aortic dissection. There are calcifications of the coronary arteries. Minimal pericardial thickening. Normal mediastinum. Enlarged right hilar lymph nodes. Normal visualized trachea and bronchi. The lungs are well expanded. There is a new 1.5 cm x 2.6 cm spiculated nodule in the right lower lobe. Surrounding atelectasis. There is evidence of scarring at the lung bases. Normal pleura. Normal chest wall structures. There are degenerative changes of thoracic spine. Small hiatal hernia. Mildly enlarged retrocrural lymph nodes. CT/CTA Chest W/WO Contrast IMPRESSION: No evidence of pulmonary embolism. New 1.5 cm x 2.6 cm spiculated nodule in the right lower lobe with surrounding atelectasis and scarring at the lung bases. Enlarged right hilar lymph nodes. A neoplastic process should be ruled out. Electronically Signed: Carlos Gross MD at 11:36 EDT ,
== END | disposition home or self-care (01) ==
LOC: CT 10:36
PROVIDERS: PCP Family Medicine Geriatric Medicine; Referring Provider Family Medicine Geriatric Medicine; Visit Provider Family Medicine Geriatric Medicine
DX: I26.99 Other pulmonary embolism without acute cor pulmonale (principal)
CPT/HCPCS: 71275; Q9967

== ENCOUNTER → 2024-08-10 | Outpatient (CLI) | payer MEDICARE, SELFPAY ==
[2020-01-07 10:52] VITALS: BMI 40.8
--- NOTE | 2024-08-10 11:55 | BI_ITS ---
MAMMOGRAPHY - BILATERAL SCREENING REASON FOR EXAM: Female, 84 years old. Routine annual screening examination. PERTINENT HISTORY: Non-contributory. TECHNIQUE: Digital bilateral breast tony (3D mammographic acquisition) in the CC and MLO projections. 2-D mediolateral oblique (MLO) and craniocaudad (CC) views of both breasts were obtained. CAD: Full Field Digital Mammography with Computer Added Detection was performed. COMPARISON: Comparison is made with prior study August 09, 2023 and August 06, 2022. FINDINGS: Breast Composition: The breasts are heterogeneously dense, which may obscure small masses. There are no dominant masses or suspicious calcifications. Stable small benign-appearing bilateral axillary lymph nodes. No other significant abnormalities are identified. There has been no significant change since the prior study. BI/SCRN MAMM (CAD)W/TONY BILAT IMPRESSION: Stable bilateral screening mammogram. Yearly follow-up mammogram recommended. (A) ASSESSMENT CATEGORY: BIRADS Category 2: Benign. A letter regarding these results will be sent to the patient by the facility within 30 days. Approximately 10% of breast cancers are not detected by mammography. A normal mammogram should not delay biopsy of a clinically suspicious abnormality. [id number] Electronically Signed: Carlos Gross MD at 13:42 EDT ,
== END | disposition home or self-care (01) ==
LOC: OPBI 11:53
PROVIDERS: PCP Family Medicine Geriatric Medicine; Referring Provider Family Medicine Geriatric Medicine; Visit Provider Family Medicine Geriatric Medicine
DX: Z12.31 Encounter for screening mammogram for malignant neoplasm of breast (principal)
CPT/HCPCS: 77063; 77067

== ENCOUNTER → 2024-08-18 | Outpatient (CLI) | payer MEDICARE, SELFPAY ==
[2020-01-07 10:52] VITALS: BMI 40.8
--- NOTE | 2024-08-18 10:30 | PET_ITS ---
EXAMINATION: FDG-PET/CT ? INDICATIONS: 84-year-old female with a history of abnormal findings in the lung field, presenting for initial examination. ? COMPARISON EXAMINATION: CTA of the chest dated 08/05/2024. ? INDEX LESION SIZE SUV INTERPRETATION Carinal level mediastinum, right thoracic perihilum 28.9 mm, largest 9.9 max Fulfills quantitative criteria for viable neoplasm ? Right lower lung field, right lower lobe 14.4 mm 2.3 Fulfills quantitative criteria for viable neoplasm ? TECHNIQUE: Following the intravenous administration of 14.38 mCi of F-18 deoxyglucose via the right wrist, multiplanar image acquisitions of the head, neck, chest, abdomen and pelvis to the level of the midthigh, obtained at one-hour post radiopharmaceutical administration contemporaneously interpreted with the current CT of the chest, abdomen and pelvis dated 08/18/2024 and prior CTA of the chest dated 08/05/2024 via coregistration reveal: ? SERUM GLUCOSE LEVEL:? 125 mg/dL? HEIGHT:?? 60 inches WEIGHT:?? 205 pounds ? FINDINGS: ? HEAD/NECK:? There is no evidence of abnormal increased glucose metabolism in the pharyngeal mucosal space, parapharyngeal space, oropharynx, bilateral-lateral and anterior neck, hypopharynx and distribution of the larynx. ? The visualized portion of the cerebral cortical-subcortical structures demonstrate symmetric and preserved glucose metabolism. ? CHEST:? Focal increased tracer uptake is noted in the right lower posterior lung field, right lower lobe generating a calculated standard uptake value of 2.3. The maximal axial diameter of the metabolic, morphologic abnormality is 14.4 mm. Facilitated radiopharmaceutical concentration is noted in the carinal level mediastinum to the right of midline and right thoracic perihilum involving lymph node Stations IV-R and X-R. The calculated standard uptake value is 9.9. The maximal axial diameter of the largest corresponding soft tissue abnormality is 28.9 mm. ? CT of the chest demonstrates the following anatomic characteristics: A hiatal hernia is demonstrated. Atherosclerotic calcification is defined in the thoracic aorta without evidence of dilatation, aneurysm formation. Coronary artery calcification is observed. No additional foci of increased radiopharmaceutical concentration are identified in the bilateral hemithorax.? The maximal axial diameter of the ascending thoracic aorta is 44.8 mm; atherosclerotic calcification is defined. Additional mediastinal and bilateral axillary soft tissue densities are nontracer avid. Facilitated parenchymal changes noted in the bilateral hemithorax demonstrate evidence of quantitatively significant increased FDG uptake. ? ABDOMEN/PELVIS:? Normal physiologic distribution of the radiopharmaceutical is identified in the hepatic (4.3) and splenic parenchyma, both renal units, urinary bladder, and visualized intestinal tract. ? CT of the abdomen and pelvis is remarkable for the following: Atherosclerotic calcification is defined in the abdominal aorta without evidence of dilatation, aneurysm formation. Pelvic arterial calcification is observed. A small fat containing periumbilical hernia is demonstrated. Beam hardening artifact attributed to right and left hip arthroplasties compromises interpretation of the lower pelvic CT acquisitions. Left and right inguinal foci with fatty hilus formation are ametabolic. There appears to be pooling of radiopharmaceutical within the context of the proximal urethra. ? SKELETAL:? There is no evidence of quantitatively significant enhanced glucose metabolism on meticulous inspection of the appendicular and axial skeletal structures. ? Bilateral hip arthroplasties are demonstrated, as previously described. ? Degenerative changes defined in the thoracic and lumbar spine demonstrate no evidence of increased glucose metabolism. There are no sclerotic, mixed sclerotic-lytic, or primarily lytic changes defined in the axial skeletal structures with evidence of increased FDG uptake. ? PET/PET/CT Tumor Base -Thigh Init IMPRESSION: 1. The increase in glucose metabolism demonstrated in the carinal level mediastinum and right thoracic perihilum fulfill quantitative criteria for viable neoplasm. 2. Enhanced tracer uptake identified in the right lower lung field, right lower lobe fulfills borderline quantitative criteria for neoplastic transformation. 3. Facilitated FDG noted in the lower pelvis, peritoneal region is most consistent with physiologic tracer uptake in the proximal urethra. If soft tissue mass formation is a diagnostic consideration, correlation with CT of the pelvis with intravenous contrast is recommended. Electronic Signature Kiran Espinal D.O. Accurate Quantification of SUVs for this report are calculated using the exclusive [employer]. (U.S. Patent No. [phone] B2 [phone] [place] patent [phone]). Standardization and correction of the FDG SUV metric via ACCUQUAN technology allow for vendor non-specific objective quantitative examination comparison and optimization of the sensitivity and specificity of the FDG PET-CT examination. [email or web address]://www.mdpi.com/9371-9316/17/07/[email or web address] Electronically Signed: Kiran Espinal DO at 22:31 EDT ,
== END | disposition home or self-care (01) ==
PROVIDERS: PCP Family Medicine Geriatric Medicine; Referring Provider Family Medicine Geriatric Medicine; Visit Provider Family Medicine Geriatric Medicine
DX: R91.8 Other nonspecific abnormal finding of lung field (principal); R59.0 Localized enlarged lymph nodes
CPT/HCPCS: 78815; A9552

== ENCOUNTER → 2024-08-26 | Outpatient (CLI) | payer MEDICARE, SELFPAY ==
[2020-01-07 10:52] VITALS: BMI 40.8
[2024-08-26] VITALS (16 sets, daily range): BP systolic 123–161; BP diastolic 65–100; PULSE 62–81; RESP 16–25; TEMP 36.4; O2SAT 94–98; BMI 40.0
--- NOTE | 2024-08-26 | ASPIGT_PTH ---
PATHOLOGY RESULTS PATIENT: IRENE PAYAN LOC: CT U#:[id number] AGE/SX: 84/F ROOM: RE08/26/[address]: Dr. Chris Mendez MD : 1940 BED: DIS: 08/26/2024 SPEC #: [id number] RECD: 08/26/24 10:36 STATUS: EDDIE REQ #: [id number] ZAINAB: 08/26/24 00:[address]: Chris Mendez Chi DEPT: SURGICAL PATHOLOGY RECD BY: Luana Quintana ENTERED: 08/26/24 10:37 SP TYPE: ASP RAD OTHR DR: Evon Montez, TRUCK HEADL[employer] ASSEMBLER-C Tissues: Lung, NOS Procedures: FNA Specimen Adequacy Special Stain Group II Special Stain Group I Surgery Specimen Level IV AFB Stain (control) GMS Stain (control) Imprint (control) HEADER OPERATION: CT guided right lung biopsy PRE-OP DIAGNOSIS: Lung mass TISSUE SUBMITTED: 18 gauge x 5 cores MICROSCOPIC DIAGNOSIS Right lung, CT guided core biopsy: Lung parenchymal tissue with moderate to marked chronic inflammation. Focal necrotizing granuloma formation. Negative for malignancy. See comment. 08/27/2024 COMMENT The specimen is evaluated at the time of biopsy by Dr. Antoine. Immediate Evaluation = Negative for malignant cells. Special stains for acid fast bacilli and fungi are negative for organisms; matched controls are appropriate. Changes suggestive of organizing pneumonia are also noted. Correlation with clinical, radiologic findings and appropriate follow up are necessary. Case has been reviewed in consultation with Dr. Salinas who concurs with the above diagnosis. IDC:AM MICROSCOPIC DESCRIPTION Slides are reviewed. GROSS DESCRIPTION Received in fixative is one container labeled with the patient's name and designated Right lung. The specimen consists of multiple irregular fragments of hirsch soft tissue that in aggregate measure 1.0 x 0.5 x 0.1 cm. The specimen is totally submitted in one cassette. Two touch imprints are prepared at the time of core biopsy. JUAN DAVIDColette 08/26/2024 TC:3 CPT:40689,66155,65535h5
--- OUTSIDE RECORDS SUMMARY | 2024-08-26 07:51 | XMS RPT_ITS | CCD ---
Author Organization [facility] Care Team Providers Care Extension Agent Name Role Phone GUS HARO Unavailable Unavailable Allergies Allergy Classification Reported Allergen(s) Allergy Type Date of Onset Reaction(s) Facility (1 source) traMADol; Translations: [TRAMADOL] Drug Allergy 2 AOF [facility] Repository (1 source) NITROFURANTOIN MONOHYD/M-CRYST; Translations: [NITROFURANTOIN MONOHYD/M-CRYST] Propensity to adverse reactions to drug (disorder) 6 [facility] Repository Problems Problem Classification Problem Date Documented Da te Episodic/Chronic Unclassified (1 source) Encounter for screening mammogram for malignant neoplasm of breast; Translations: [Encounter for screening mammogram for malignant neoplasm of breast] Onset: 06-30-2018 Episodic Results Test Name Value Interpretation Reference Range Facility [facility] 06-30-2018 [facility] HNO ID: [id number] thor: Mammography CoordinatorService: (none)Author Type: PhysicianType: LetterFiled: 07/01/2018 11:33 PMNote Text:June 30, 2018 PID: [id number] A[address] [place] [id number] Ms. Payan,We are pleased to inform you that the results of your recent breastimaging exam on 06/30/2018 are normal.Your mammogram demonstrates that you have dense breast tissue, which couldhide abnormalities. Dense breast tissue, in and of itself, is arelatively common condition. Therefore, this information is not providedto cause undue concern; rather, it is to raise your awareness and promotediscussion with your health care provider regarding the presence of densebreast tissue in addition to other risk factors.Early detection of cancer is very important. We also understandrecommendations regarding breast cancer screening are controversial.Please discuss with your primary care provider which strategy is best foryou and whether a mammogram is right for you.Your imaging studies and report [facility] and are available for yourcontinuing care.Thank you for allowing us to help in meeting your health care needs.Sincerely,Dr. SouzaInterprecarmita RadiologistWEmanate Health/[facility] (Normal over 40) Normal [facility] SCREENINGon 06-30-2018 [facility] SCREENING * * *Final Report* * *DATE OF EXAM: Jun 30 2018 2:30PM [facility] [address] [facility] SCREENING / REASON: Encounter for screening mammogram for malignant neoplasm of breast * * * * Physician Interpretation * * * *RESULT: #[id number] - [facility] SCREENINGBILATERAL DIGITAL SCREENING MAMMOGRAM WITH CAD: 06/30/2018HISTORY: Screening Mammogram - patient reports NO breast symptoms /Priors available for comparison.RESULT:TECHNIQ UE: The study was acquired using full field digital technology and interpreted from soft copy.Current study was also evaluated with a Computer Aided Detection (CAD).Comparison is made to exams dated: 12/24/2016 mammogram, 12/13/2015 mammogram - [facility], 08/16/2011 mammogram, 08/26/2012 mammogram, 11/02/2013 mammogram, and 11/12/2014 mammogram - [facility].The tissue of both breasts is heterogeneously dense. This may lower the sensitivity of mammography.The parenchymal pattern and appearance of the breasts is unchanged from the prior exams taking into account differences in positioning and technique.No significant masses, calcifications, or other findings are seen in either breast.There has been no significant interval change.IMPRESSION: NEGATIVEStable exam from [id number].There is no mammographic evidence of malignancy.A 1 year screening mammogram is recommended.Aide Mejia/fabio:06/30/2018 16:04:23Imaging Technologist: Livier OLIOV)(Tara), [facility]: Normal over 40Mammogram BI-RADS: 1 NegativeTranscriptionist: FabioTranscribe Date/Time: Jun 30 2018 2:27PDictated by: Javan DAS examination was interpreted and the report reviewed and electronically signed by: AIDE SOUZA MD on Jun 30 2018 4:04PM [id number] [facility] C[facility] Telephone (WOOB) UNA PAYAN ([id number]) 1940 FDate Time Provider Department01/13/18 IVETT MCELROY WOMARICEL During your visit today, we recorded the following information about you:TYESHA Reid 01/13/2018 9:[address] Hayward patient, needs yearly mammogram. Please place order.OLAF ReidRAlerlin As of Date: 01/13/2018 Noted Allergy ReactionMACROBID (NITROFURANTOIN MONOHYD/*03/26/2006ULTRAM (TRAMADOL) 08/26/2012 8 - GI UpsetDate Reviewed: 12/24/2016Reviewed by: Tania Almeida Ma - Fully AssessedReason for Visit: mammogram order [Other]Primary Visit Diagnosis:Encounter for screening mammogram for malignant neoplasm of breast [Z12.31]Order(s):[facility] SCREENING [[id number]] Order #: [id number] FUTUREPrescriptions as of 01/13/2018 Sig: GABAPENTIN 300 MG CAPSULE Take 300 mg by mouth twice da* MELOXICAM 15 MG TABLET Take 15 mg by mouth once navin* METHENAMINE HIPPURATE 1 GRAM * Take 1 g by mouth twice daily* ASCORBIC ACID (VITAMIN C) 500* Take 500 mg by mouth once terry* LOSARTAN 100 MG-HYDROCHLOROTH* Take 1 tablet by mouth once d* TIMOLOL MALEATE 0.25 % EYE DR* 1 Drop twice daily. * PRAVASTATIN 40 MG TABLET Take 40 mg by mouth once navin* * PRESERVISION ORAL Take 1 tablet by mouth twice * * XALATAN OPHTHALMIC Use 1 Drop in eyes daily at b* * ASPIRIN 81 MG TABLET Take one(1) tablet daily.Problem List As Of Date: 01/13/2018(None) Status:Closed by GUS HARO MD on 01/13/18 Normal [facility] Encounters Encounter Date Encounter Type Care Provider Facility Start: 06-30-2018 End: 06-30-2018 Patient encounter GUS HARO [facility] Summary Purpose Family History No Family History Records Found Advance Directives No Advanced Directives Records Found Additional Source Comments INFORMATION SOURCE (unrecogn ized section and content) DATE CREATED AUTHOR 07/04/2018 [facility] FOR RECORDS PERTAINING TO PATIENTS WHO ARE [...] BE BASED ON THE PRIMARY CLINICAL RECORDS. [employer] [facility]. provides no warranty or guarantee of the accuracy or completeness of information in this document.
[2024-08-26 08:00] LABS: Platelet Count 170 K/mm3 (150-450)
[2024-08-26 08:12] LABS: International Normalized Ratio 1.1
[2024-08-26 08:13] LABS: Partial Thromboplast Time 30.8 Seconds (24.1-36.2)
[2024-08-26] MEDS: 0.9% Saline Lock 10 ML Syringe IV ×2 (08:27→10:02)
[2024-08-26] MEDS: Midazolam 2 MG/2 ML Syringe IV (09:01)
[2024-08-26] MEDS: fentaNYL 100 MCG/2 ML Ampul IV (09:04)
[2024-08-26] MEDS: Lidocaine 2% (20 ml mdv) 20 ML Vial INFILT (09:20)
--- NOTE | 2024-08-26 09:40 | RAD_ITS ---
STUDY: X-RAY CHEST REASON FOR EXAM: Female, 84 years old. Immediate post lung biopsy -- Immediately post lung biopsy TECHNIQUE: AP inspiration and expiration views. COMPARISON: Comparison is made with prior study July 30, 2024. FINDINGS: EKG electrodes are seen. The patient is status post right lung biopsy. No evidence of pneumothorax on the immediate post right lung biopsy radiographs. Increased markings at the lung bases suggestive of atelectasis. RAD/Chest Insp/Exp 2 View IMPRESSION: No evidence of pneumothorax on the immediate post right lung biopsy radiographs. Electronically Signed: Carlos Gross MD at 9:53 EDT ,
--- NOTE | 2024-08-26 11:30 | RAD_ITS ---
STUDY: X-RAY CHEST REASON FOR EXAM: Female, 84 years old. 2 hour post lung biopsy -- 2 hours post lung biopsy TECHNIQUE: AP inspiration and expiration views. COMPARISON: Comparison is made with prior study done earlier today. FINDINGS: No evidence of pneumothorax on the two-hour post right lung biopsy radiographs. RAD/Chest Insp/Exp 2 View IMPRESSION: No evidence of pneumothorax on the 2 hour post right lung biopsy radiographs. Electronically Signed: Carlos Gross MD at 15:30 EDT ,
--- NOTE | 2024-08-26 12:59 | PRO.PCM_ITS ---
Procedure Report Date of Procedure: 08/26/24 Assessment & Plan Assessment/Plan (1) Right lower lobe pulmonary nodule: PLAN: PROCEDURE: CT GUIDED CORE NEEDLE LUNG BIOPSY ORDERING PROVIDER: Dr. Mendez INDICATION: Female, 84 years old. Right lower lobe pulmonary nodule. PROVIDER: REESE Hearn CONSENT: Written informed consent was obtained having explained the risks, benefits and alternatives in detail with the patient and son who accepted the risks and agreed to proceed. Laboratory review and clinical assessment was performed. PRE-PROCEDURE SEDATION ASSESSMENT: Current history and physical dictated by referring physician and reviewed. No clinical changes since date of exam. Patient has a Mallampati Score of Class 2 and ASA Class of 3. PROCEDURAL SEDATION PROTOCOL: The Drugs used were: 1 mg Versed, IV, and 25 mcg Fentanyl, IV. The sedation time was: 29 minutes, starting at 9:01 AM and terminated at 9:30 AM. The procedural sedation protocol was independently monitored by the department nurse. RADIATION DOSAGE (Supplied By Facility): CTDIvol = 18.64 mGy, DLP = 479.80 mGycm Individualized dose optimization techniques were used for this CT. TECHNIQUE: The patient was placed in a prone position. A noncontrast CT was performed to localize the lesion in the right lower lobe. The skin surface was prepped with chlorhexidine and draped in a sterile fashion. 2% lidocaine was used for local anesthesia. Using CT guidance, a 20-gauge coaxial biopsy device was advanced to the periphery of the lesion. A total of 5 core specimens were obtained. Specimens were microscopically reviewed by pathology in the CT suite and placed in formalin solution. BioSentry tract sealant system was deployed at the biopsy site, and the biopsy needle was removed. A sterile occlusive dressing was applied to the biopsy site. The patient tolerated the procedure well. An immediate chest xray was ordered, per protocol. A negative biopsy does not exclude malignancy. Further imaging or clinical f ollowup based on patient condition and degree of clinical suspicion for malignancy. Suggest rebiopsy, if biopsy results do not match with clinical scenario. IMPRESSION: CT directed core needle biopsy of right lower lobe nodule using CT image guidance with image documentation as described. Pathology results are pending. Procedural Sedation protocol utilized with independent monitoring by the department nurse. Procedures Radiology Radiology CT Procedures: 13119 Biopsy Lung
== END | disposition home or self-care (01) ==
PROVIDERS: Nurse Practitioner Acute Care; PCP Family Medicine Geriatric Medicine; Referring Provider Family Medicine Geriatric Medicine; Visit Provider Family Medicine Geriatric Medicine
DX: J98.4 Other disorders of lung (principal); R91.8 Other nonspecific abnormal finding of lung field
CPT/HCPCS: 32408; 36415; 71046; 77012; 85049; 85610; 85730; 88172; 88305; 88312; 88313; 99156; A4216; C2613

== ENCOUNTER → 2024-09-25 | Outpatient (CLI) | payer MEDICARE, SELFPAY ==
[2020-01-07 10:52] VITALS: BMI 40.8
[2024-09-25 11:01] LABS: Absolute Lymphocyte Count 1.85 X10^3/uL (0.83-4.51); Absolute Neutrophil Count 3.5 X10^3/uL (2.0-7.7); Basophil# 0.03 X10^3/uL; Basophil% 0.5 % (0-1); Eosinophil# 0.22 X10^3/uL; Eosinophils% 3.5 % (0-5); Hematocrit 44.6 % (37-47); Hemoglobin 14.7 g/dL (12.0-15.0); Lymphocyte # 1.85 X10^3/ul (0.83-4.51); Mean Corpuscular Hgb 29.5 pg (27.0-32.0); Mean Corpuscular Volume 89.6 fL (81-99); Mean Platelet Vol. 9.9 fl (6.2-12.0); Monocyte# 0.71 X10^3/uL; Monocyte% 11.1 % (0-10); NRBC Flagged by Analyzer 0 % (0-5); Neutrophil # 3.54 X10^3/uL (2.7-7.7); Neutrophil % 55.6 % (47-70); Platelet Count 178 K/mm3 (150-450); RBC Distribution Width SD 42.3 fl (35.1-43.9); Red Blood Count 4.98 M/mm3 (4.2-5.4); White Blood Count 6.4 K/mm3 (4.4-11.0)
[2024-09-25 11:51] LABS: Vitamin D,25 Hydroxy 32.1 ng/mL
[2024-09-25 11:55] LABS: AST(SGOT) 16 U/L (15-37); Alanine Aminotransfer ALT/SGPT 15 U/L (13-56); Albumin, Serum 3.5 g/dL (3.2-5.0); Alkaline Phosphatase 71 U/L (45-117); Anion Gap 4 (5-15); BUN 14 mg/dL (7-18); BUN/Creat Ratio 16.9 RATIO (10-20); Calcium,Total 9.3 mg/dL (8.5-10.1); Chloride 102 mmol/L (98-107); Creatinine, Serum 0.83 mg/dL (0.55-1.02); EST Glomerular Filtration Rate 70 mL/min (>60); Est Glom Filt Rate - Afr Amer 84 mL/min (>60); Globulin 3.4 g/dL (2.2-4.2); Glucose 124 mg/dL (74-106); Potassium 4.4 mmol/L (3.5-5.1); Protein, Total 6.9 g/dL (6.4-8.2); Sodium Level 138 mmol/L (136-145)
== END | disposition home or self-care (01) ==
LOC: POLAB3 10:49
PROVIDERS: PCP Family Medicine Geriatric Medicine; Visit Provider Family Medicine Geriatric Medicine
DX: E11.65 Type 2 diabetes mellitus with hyperglycemia (principal); E55.9 Vitamin D deficiency, unspecified; I10 Essential (primary) hypertension
CPT/HCPCS: 36415; 80053; 82306; 84443; 85025

== ENCOUNTER → 2024-10-22 | Outpatient (CLI) | payer MEDICARE, SELFPAY ==
[2020-01-07 10:52] VITALS: BMI 40.8
[2024-10-22] VITALS (16 sets, daily range): BP systolic 127–167; BP diastolic 60–100; PULSE 65–85; RESP 18–19; TEMP 36.1; O2SAT 90–97; BMI 40.0
--- NOTE | 2024-10-22 | ASPIGT_PTH ---
PATIENT: IRENE PAYAN LOC: CT U#:[id number] AGE/SX: 84/F ROOM: RE10/22/[address]: Dr. Salomón Ayon MD : 1940 BED: DIS: 10/22/2024 SPEC #: [id number] RECD: 10/22/24 10:33 STATUS: EDDIE REJasmin #: [id number] ZAINAB: 10/22/24 00:[address]: Salomón Ayon DEPT: SURGICAL PATHOLOGY RECD BY: Luana Quintana ENTERED: 10/22/24 10:33 SP TYPE: ASP RAD OTHR DR: Dr. Chris Mendez MD Tissues: Lung, NOS Procedures: FNA Specimen Adequacy Special Stain Group II Special Stain Group I Surgery Specimen Level IV AFB Stain (control) GMS Stain (control) Imprint (control) HEADER OPERATION: CT guided right lung biopsy PRE-OP DIAGNOSIS: Right lower lobe lung mass TISSUE SUBMITTED: 20 gauge x 4 cores MICROSCOPIC DIAGNOSIS Right lower lung mass, CT guided core biopsy: Fragments of benign lung parenchymal tissue with chronic inflammation and necrosis. Necrotizing granulomatous inflammation. Negative for malignancy. See comment. 10/23/2024 COMMENT The specimen is evaluated at the time of biopsy by Dr. Antoine. Immediate Evaluation = Negative for malignant cells. Reported to Dr. Gross at 10:18am on 10/22/2024. Please make reference to previous specimen [id number] right lung, CT guided core biopsy with diagnosis of lung parenchymal tissue with moderate to marked chronic inflammation and focal necrotizing granuloma formation. Special stains for acid fast bacilli and fungi are negative for organisms; matched controls are appropriate. Correlation with clinical, radiologic findings and appropriate follow up are necessary. Case has been reviewed in consultation with Dr. Salinas who concurs with the above diagnosis. IDC:AM MICROSCOPIC DESCRIPTION Slides are reviewed. GROSS DESCRIPTION Received is one container labeled with the patient's name and not further designated. The specimen consists of multiple irregular fragments of light hirsch soft tissue that in aggregate measure 0.5 x 0.1 x 0.1 cm. The specimen is totally submitted in one cassette. Two touch imprints are prepared at the time of core biopsy. 10/22/2024 TC:5 CPT:52906 ,[id number]
--- NOTE | 2024-10-22 08:53 | CT_ITS ---
PROCEDURE: CT GUIDED CORE NEEDLE BIOPSY OF A right lower lobe nodule LUNG LESION INDICATION: Female, [address] GUIDED RLL LUNG NODULE PHYSICIAN: Dr. Renato Weiss CONSENT: Written informed consent was obtained having explained the risks, benefits and alternatives in detail with the patient who accepted the risks and agreed to proceed. Laboratory review and clinical assessment was performed. CONSCIOUS SEDATION PROTOCOL: The Drugs used were: 2 mg Versed, IV., and 50 mcg Fentanyl, IV. The sedation time was: 24 minutes minutes. Conscious sedation was started at 9:48 AM and terminated at 10:12 AM The conscious sedation protocol was independently monitored. RADIATION DOSAGE (If Supplied By Facility): CTDIvol = ( 17 ) mGy, DLP = ( 316.56 ) mGycm Individualized dose optimization techniques were used for this CT. TECHNIQUE: The patient was placed in the prone position. A noncontrast CT was performed to localize the lesion in the right lower lobe . The skin surface was prepped and draped in a sterile fashion. 1% lidocaine was used for local anesthesia. Using CT guidance, a 20-gauge coaxial biopsy device was advanced to the periphery of the lesion. A total of 5 core specimens were obtained. The specimens were placed in a formalin solution. A post procedure CT demonstrated no adverse sequelae or pneumothorax. The patient tolerated the procedure well without adverse event. A negative biopsy does not exclude malignancy. Further imaging or clinical followup based on patient condition and degree of clinical suspicion for malignancy. Suggest rebiopsy, if biopsy results do not match with clinical scenario. CT/Biopsy/Inj or Needle Placement IMPRESSION: 1. CT directed core needle biopsy of the right lower lobe lung nodule using CT image guidance with image documentation as described. Pathology results are pending. 2. Conscious Sedation protocol utilized with independent monitoring. Electronically Signed: Carlos Gross MD at 10:40 EST ,
[2024-10-22 09:05] LABS: Absolute Lymphocyte Count 1.57 X10^3/uL (0.83-4.51); Absolute Neutrophil Count 4.1 X10^3/uL (2.0-7.7); Basophil# 0.02 X10^3/uL; Basophil% 0.3 % (0-1); Eosinophil# 0.19 X10^3/uL; Eosinophils% 2.9 % (0-5); Hematocrit 46.2 % (37-47); Hemoglobin 14.8 g/dL (12.0-15.0); Lymphocyte # 1.57 X10^3/ul (0.83-4.51); Mean Corpuscular Hgb 28.8 pg (27.0-32.0); Mean Corpuscular Volume 89.9 fL (81-99); Mean Platelet Vol. 9.8 fl (6.2-12.0); Monocyte# 0.62 X10^3/uL; Monocyte% 9.5 % (0-10); NRBC Flagged by Analyzer 0 % (0-5); Neutrophil # 4.13 X10^3/uL (2.7-7.7); Platelet Count 180 K/mm3 (150-450); RBC Distribution Width CV 12.7 % (11.6-14.6); RBC Distribution Width SD 41.9 fl (35.1-43.9); Red Blood Count 5.14 M/mm3 (4.2-5.4); White Blood Count 6.6 K/mm3 (4.4-11.0)
[2024-10-22 09:09] LABS: International Normalized Ratio 1.1; Prothrombin Time (Protime)PT. 13.8 SECONDS (11.7-14.9)
[2024-10-22 09:10] LABS: Partial Thromboplast Time 29.6 Seconds (24.1-36.2)
[2024-10-22] MEDS: Midazolam 2 MG/2 ML Syringe IV (09:48)
[2024-10-22] MEDS: fentaNYL 100 MCG/2 ML Ampul IV (09:49)
[2024-10-22] MEDS: Lidocaine 2% (20 ml mdv) 20 ML Vial INFILT (10:00)
--- NOTE | 2024-10-22 10:15 | RAD_ITS ---
STUDY: X-RAY CHEST REASON FOR EXAM: Female, 84 years old. Post lung biopsy -- Immediately post lung biopsy TECHNIQUE: AP inspiration and expiration views. COMPARISON: Comparison is made with prior study dated August 26, 2024. FINDINGS: The patient is status post right lung biopsy. No evidence of pneumothorax. RAD/Chest Insp/Exp 2 View IMPRESSION: Status post right lung biopsy. No evidence of pneumothorax. Electronically Signed: Carlos Gross MD at 10:37 EST ,
[2024-10-22] MEDS: Ketorolac 15 MG/ML Vial IV (11:20)
--- NOTE | 2024-10-22 12:15 | RAD_ITS ---
STUDY: X-RAY CHEST REASON FOR EXAM: Female, 84 years old. Post lung biopsy -- 2 hours post lung biopsy TECHNIQUE: AP inspiration and expiration views. COMPARISON: Comparison is made with prior study done earlier in the day. FINDINGS: No evidence of pneumothorax on the 2 hour post right lung biopsy radiographs. RAD/Chest Insp/Exp 2 View IMPRESSION: No evidence of pneumothorax on the two-hour post right lung biopsy radiographs. Electronically Signed: Carlos Gross MD at 12:42 EST ,
== END | disposition home or self-care (01) ==
LOC: CT 08:44
PROVIDERS: Radiology Diagnostic Radiology; PCP Family Medicine Geriatric Medicine; Referring Provider Internal Medicine Hematology & Oncology; Visit Provider Internal Medicine Hematology & Oncology
DX: J85.0 Gangrene and necrosis of lung (principal); J98.4 Other disorders of lung
CPT/HCPCS: 32408; 36415; 71046; 77012; 85025; 85610; 85730; 88172; 88305; 88312; 88313; 99156; A4216

== ENCOUNTER → 2025-02-02 | Outpatient (CLI) | payer MEDICARE, SELFPAY ==
[2020-01-07 10:52] VITALS: BMI 40.8
--- NOTE | 2025-02-02 08:30 | PET_ITS ---
EXAM: PET CT OF THE SKULL BASE TO MID THIGH CLINICAL HISTORY: R91.1 solitary pulmonary nodule. R59.0 localized enlarged lymph nodes. COMPARISON: November 10, [address] TECHNIQUE: Agent: F 18 fluorodeoxyglucose Dose: 14.561. Injection time 8:14 a.m. Scan start time 0 9: 13 Prior to administration of the radiotracer, blood glucose level was 119 mg/dL. CT images for attenuation correction and anatomic localization followed by PET images from the skull base to the mid thigh were obtained. FINDINGS: Neck on line there is normal uptake in the soft tissues of the neck and glandular structures without focal areas of abnormal increased metabolism. Chest: 3 foci of uptake are seen in the right hilum. The nodule located adjacent to the descending right pulmonary artery has a maximum SUV of 4.24. The lymph node localized to the bifurcation of the right upper and lower pulmonary arteries an SUV of 3.74. The 3rd most superior nodule again at the right hilum has a maximum SUV of 1.8. Despite the low SUV reading, the nodule is visible only faintly so. Abdomen/pelvis: There is normal distribution of radiotracer within the gastrointestinal and genitourinary system without focal areas of abnormal metabolism. No evidence of adenopathy. Musculoskeletal: No additional foci of activity in the soft tissues or in the skeleton. PET/PET/CT Tumor Base -Thigh Init IMPRESSION: 2 foci of hypermetabolism indicating metastatic lymph nodes. A 3rd lymph node has visually perceptible intake but the measured SUV just below threshold or malignancy Reading [facility]
== END | disposition home or self-care (01) ==
PROVIDERS: PCP Family Medicine Geriatric Medicine; Referring Provider Internal Medicine Critical Care Medicine; Visit Provider Internal Medicine Critical Care Medicine
DX: R59.0 Localized enlarged lymph nodes (principal); R91.1 Solitary pulmonary nodule
CPT/HCPCS: 78815; A9552

== ENCOUNTER → 2025-03-05 | Outpatient (CLI) | payer MEDICARE, SELFPAY ==
[2020-01-07 10:52] VITALS: BMI 40.8
[2025-03-05 12:34] LABS: Rheumatoid Factor < 10.0 IU/mL (<15)
[2025-03-09 07:07] LABS: CCP IgG Antibodies 7 units (0-19); Cytoplasmic Ab (C-ANCA) <1:20 titer (Neg:<1:20); Perinuclear Ab (P-ANCA) <1:20 titer (Neg:<1:20)
== END | disposition home or self-care (01) ==
LOC: LAB 10:28
PROVIDERS: PCP Family Medicine Geriatric Medicine; Referring Provider Internal Medicine Critical Care Medicine; Visit Provider Internal Medicine Critical Care Medicine
DX: R59.0 Localized enlarged lymph nodes (principal)
CPT/HCPCS: 36415; 86037; 86200; 86431

== ENCOUNTER → 2025-04-02 | Outpatient (CLI) | payer MEDICARE, SELFPAY ==
[2020-01-07 10:52] VITALS: BMI 40.8
[2025-04-02 12:54] LABS: Absolute Lymphocyte Count 1.77 X10^3/uL (0.83-4.51); Absolute Neutrophil Count 3.5 X10^3/uL (2.0-7.7); Basophil# 0.03 X10^3/uL; Basophil% 0.5 % (0-1); Eosinophil# 0.17 X10^3/uL; Eosinophils% 2.7 % (0-5); Hematocrit 45.1 % (37-47); Hemoglobin 15.1 g/dL (12.0-15.0); Lymphocyte # 1.77 X10^3/ul (0.83-4.51); Lymphocyte % 28.3 % (19-41); Mean Corp Hgb Conc 33.5 g/dL (32-36); Mean Corpuscular Hgb 30.4 pg (27.0-32.0); Mean Corpuscular Volume 90.9 fL (81-99); Mean Platelet Vol. 10.1 fl (6.2-12.0); Monocyte# 0.74 X10^3/uL; Monocyte% 11.8 % (0-10); NRBC Flagged by Analyzer 0 % (0-5); Neutrophil # 3.52 X10^3/uL (2.7-7.7); Neutrophil % 56.4 % (47-70); Platelet Count 170 K/mm3 (150-450); RBC Distribution Width CV 12.8 % (11.6-14.6); RBC Distribution Width SD 42.6 fl (35.1-43.9); Red Blood Count 4.96 M/mm3 (4.2-5.4); White Blood Count 6.3 K/mm3 (4.4-11.0)
[2025-04-02 13:24] LABS: ALB/GLOB Ratio 1.6 RATIO (0.9-2.4); AST(SGOT) 19 U/L (<=31); Alanine Aminotransfer ALT/SGPT 10 U/L (<=34); Albumin, Serum 4.1 g/dL (3.4-4.8); Alkaline Phosphatase 85 U/L (35-104); Anion Gap 8 (5-15); BUN 19 mg/dL (4-19); BUN/Creat Ratio 24.1 RATIO (10-20); Calcium,Total 9.5 mg/dL (7.6-11.0); Chloride 101 mmol/L (98-108); EST Glomerular Filtration Rate 72 (>60); Globulin 2.5 g/dL (2.2-4.2); Glucose 108 mg/dL (70-99); Potassium 4.8 mmol/L (3.3-5.1); Protein, Total 6.6 g/dL (5.9-8.4); Sodium Level 137 mmol/L (133-145); Total Bilirubin 0.61 mg/dL (0.00-1.30); Vitamin D,25 Hydroxy 27.9 ng/mL (30-100)
== END | disposition home or self-care (01) ==
LOC: LAB 11:55
PROVIDERS: PCP Family Medicine Geriatric Medicine; Referring Provider Family Medicine Geriatric Medicine; Visit Provider Family Medicine Geriatric Medicine
DX: E11.65 Type 2 diabetes mellitus with hyperglycemia (principal); I10 Essential (primary) hypertension; E55.9 Vitamin D deficiency, unspecified
CPT/HCPCS: 36415; 80053; 82306; 84443; 85025

== ENCOUNTER → 2025-06-22 | Outpatient (CLI) | payer MEDICARE, SELFPAY ==
[2020-01-07 10:52] VITALS: BMI 40.8
--- NOTE | 2025-06-22 16:17 | CT_ITS ---
PROCEDURE: CHEST WITH CONTRAST 06/22/2025 REASON FOR EXAM: MEDISTINAL LYMPHADENOPATHY TECHNIQUE: CHEST WITH CONTRAST Coronal and Sagittal reconstruction series were provided. CONTRAST: Isovue 370 VOLUME: 100 mL One or more dose reduction techniques were used (e.g., Automated exposure control, adjustment of the mA and/or kV according to patient size, use of iterative reconstruction technique). RADIATION DOSE SUMMARY: CTDlvol: 17.7 mGy DLP: 579.57 mGycm COMPARISON: Prior study dated August 05, 2024. FINDINGS: Hardware: None Lymph nodes: Small benign-appearing axillary lymph nodes. The right hilar lymph node measures 1.3 cm. This is minimally enlarged. There is a 7.5 mm nodule in the right lower lobe. There is evidence of linear scarring in both lower lobes. Linear scarring in the superior medial aspect of the right lower lobe. Heart and Vasculature: Coronary artery calcification. Atherosclerotic calcifications of the thoracic aorta. Pulmonary arteries are unremarkable. Lungs and Airways: Linear scarring in the lower lobes. Pleura: No pleural effusion. Upper Abdomen: Fatty infiltration of the liver. Small right renal cysts. Bones: Degenerative changes of the thoracic spine. CT/Chest WITH Contrast IMPRESSION: Coronary artery calcification (CAC) is is present Interval decrease in size of the spiculated nodule in the right lower lobe. Scarring in the lower lobes. Reading Location: [id number]
== END | disposition home or self-care (01) ==
LOC: CT 16:14
PROVIDERS: PCP Family Medicine Geriatric Medicine; Referring Provider Nurse Practitioner Family; Visit Provider Nurse Practitioner Family
DX: R59.0 Localized enlarged lymph nodes (principal)
CPT/HCPCS: 71260; Q9967

== ENCOUNTER → 2025-07-28 | Outpatient (CLI) | payer MEDICARE, SELFPAY ==
[2020-01-07 10:52] VITALS: BMI 40.8
--- NOTE | 2025-07-28 12:20 | RAD_ITS ---
PROCEDURE: L/S SPINE MIN 4 VIEWS 07/28/2025 REASON FOR EXAM: UNSPECIFIED THORACIC, THORACOLUMBAR AND LUMBOSACRAL INTERVERTEBRA TECHNIQUE: Procedure Code: RADSPLS Modality: DX Procedure: L/S SPINE MIN 4 VIEWS FINDINGS: No compression deformity. Grade 1 subluxation of L4 upon L5 and L5 upon S1. Disc space narrowing at L1-L2. Prominent vascular calcification. Mild degenerative scoliosis RAD/L/S Spine Min 4 Views IMPRESSION: No acute abnormality Reading Location[facility]
== END | disposition home or self-care (01) ==
LOC: RAD 12:14
PROVIDERS: PCP Family Medicine Geriatric Medicine; Referring Provider Family Medicine Geriatric Medicine; Visit Provider Family Medicine Geriatric Medicine
DX: M51.9 Unspecified thoracic, thoracolumbar and lumbosacral intervertebral disc disorder (principal)
CPT/HCPCS: 72110

== ENCOUNTER 2025-08-02 05:16 | Emergency (ER) | payer MEDICARE, SELFPAY ==
[2020-01-07 10:52] VITALS: BMI 40.8
[2025-08-02] VITALS (9 sets, daily range): BP systolic 92–114; BP diastolic 40–75; PULSE 56–144; RESP 16–30; TEMP 36.3–36.6; O2SAT 70–98; BMI 43.0
--- NOTE | 2025-08-02 05:23 | RAD_ITS ---
PROCEDURE: CHEST PA AND LATERAL 08/02/2025 REASON FOR EXAM: PALPITATIONS TECHNIQUE: Procedure Code: RADCXR Modality: DX Procedure: CHEST PA AND LATERAL COMPARISON: October 22, 2024 FINDINGS: There is cardiomegaly with mild central vascular congestion. There is focal infiltrate in the medial right lung base. Infiltrate in the left is not excluded. There is no pneumothorax or effusion. There is no acute bony abnormality. Aortic calcifications are visible. RAD/Chest PA and Lateral IMPRESSION: There is cardiomegaly with mild central vascular congestion. There is focal infiltrate in the medial right lung base. Infiltrate in the left is not excluded. Reading Location: [facility]
--- NOTE | 2025-08-02 05:26 | EKG12_ITS ---
Test Reason : HR Blood Pressure : */* mmHG Vent. Rate : 132 BPM Atrial Rate : * BPM P-R Int : * ms QRS Dur : 120 ms QT Int : 276 ms P-R-T Axes : * -88 105 degrees QTcB Int : 408 ms Atrial fibrillation with rapid ventricular response Left axis deviation Non-specific intra-ventricular conduction delay Minimal voltage criteria for LVH, may be normal variant ( [place] product ) ST & T wave abnormality, consider lateral ischemia Abnormal ECG Confirmed by HEATHER SANDOVAL, JOE ([id number]), loan expeditor TOYA LOMBARDO ([id number]) on 08/03/2025 8:02:55 AM Referred By: Confirmed By: JOE ROMERO MD
[2025-08-02] MEDS: 0.9% Normal Saline (1000mL) 1,000 ML 999 ML IV ×2 (05:50→07:46)
--- NOTE | 2025-08-02 05:55 | ED.VIS.CHEST ---
HPI History of Present Illness Chief Complaint: Palpitations Narrative Narrative: Patient is 85-year-old female with past medical history of paroxysmal atrial fibrillation on Eliquis, hypertension, hyperlipidemia, NEAL who presented to the emergency department the chief complaint of palpitations. Patient states that this evening she fell asleep in her recliner watch TV she states that she woke up and immediately went back to sleep. She then woke up again and felt like her heart was racing in her chest therefore she came here for further evaluation management. Patient notes that she has not missed any doses of her Eliquis she has been compliant with this. Per nursing at and states that she was recently discontinued from digoxin when inquiring about this she states that she is unsure why they stopped this medication she states that she was told that she had been on it long enough. Patient states that before falling asleep this evening she felt her normal self and has no complaints. Patient states that she has at home oxygen as needed but notes that she is not normally on this. [facility] Medical History Abnormal PET of right lung Ulcer due to bacteroides Paroxysmal atrial fibrillation History of conscious sedation Incomplete left bundle branch block Ischemic cardiomyopathy Atherosclerosis of coronary artery of [place] heart without angina pectoris Meniere disease GI bleed Essential (primary) hypertension Hyperlipidemia Obesity NEAL (obstructive sleep apnea) Osteoarthritis Cataract Hematoma Hypoxia Hypersomnia Helicobacter pylori infection Perforated duodenal ulcer NEAL (obstructive sleep apnea) Duodenal ulcer due to Helicobacter pylori Acute renal injury Acute respiratory failure Acute gastrointestinal ulcer with perforation Home Medications Medication Instructions Recorded Last Taken Type pravastatin 40 mg tablet 40 mg PO QHS 08/18/13 Unknown History timolol maleate 0.25 % eye drops 1 drp EACH EYE QHS 08/18/13 Unknown History ascorbic acid (vitamin C) 500 mg 500 mg PO DAILY@0800 12/21/17 Unknown History tablet latanoprost 0.005 % eye drops 1 drp ophthalmic (eye) DAILY 11/25/19 Unknown History apixaban 2.5 mg tablet (Eliquis) 2.5 mg PO BID 04/11/23 Unknown History sacubitril 97 mg-valsartan 103 mg 1 tab PO BID 04/11/23 Unknown History tablet (Entresto) lactobacillus combination no.9 4 4,000 mmu cells PO DAILY 09/16/23 Unknown History billion cell capsule (Adult 50 Plus Probiotic) vericiguat 10 mg tablet (Verquvo) 10 mg PO DAILY 09/16/23 Unknown History brimonidine 0.2 % eye drops 1 drp ophthalmic (eye) BID 09/08/24 Unknown History dorzolamide 2 % eye drops 1 drp ophthalmic (eye) BID 09/08/24 Unknown History vitamins A,C,N-vjco-fbihac 2,148 1 tab PO BID 10/21/24 Unknown History mcg-113 mg-45 mg-17.4 mg tablet (Eye Multivitamin) carvedilol 6.25 mg tablet 6.25 mg PO BID #180 tabs 03/05/25 Unknown Rx cholecalciferol (vitamin D3) 25 25 mcg PO QDAY 06/10/25 Unknown History mcg (1,000 unit) tablet furosemide 40 mg tablet 40 mg PO BID 06/10/25 Unknown History levothyroxine 25 mcg tablet 25 mcg PO QDAY 06/10/25 Unknown History methenamine hippurate 1 gram tablet 1 g PO BID 06/10/25 Unknown History doxycycline hyclate 100 mg capsule 100 mg PO BID #10 caps 08/02/25 Unknown Rx Allergy/AdvReac Type Severity Reaction Status Date / Time tramadol HCl (From [facility]) AdvReac Vomiting Verified 08/02/25 05:26 Family History Father Cancer Mother Heart disease Surgical History History of coronary artery stent placement (12/14/19) History of esophagogastroduodenoscopy (EGD) History of hip replacement H/O tubal ligation History of appendectomy Social History household members: none Smoking Status: Never smoker Electronic Cigarette Use: not used second hand exposure: No alcohol intake: never substance use type: does not use caffeine: Yes Type: tea Number of servings: 1 what type of physical activity do you participate in: none ROS ROS ED ROS Narrative Constitutional: Denies any fevers, chills, headaches, lightheadedness Eyes: Denies double vision Cardiovascular: Complains of palpitations as noted above denies chest pain Respiratory: Denies coughing wheezing shortness of breath Abdomen: Denies abdominal pain nausea vomit diarrhea : Denies any urinary symptoms Neurological: Denies any numbness, weakness, tingling Musculoskeletal: Denies back pain Skin: Denies any rashes or lesions EXAM Physical Exam Narrative Exam Narrative: General: Patient is lying in bed rest comfortably did not appear to be in acute distress Head: Atraumatic, normocephalic Eyes: PERRL bilaterally, EOMI bilaterally, no conjunctival injection noted Neck: Soft, supple, trachea midline Cardiovascular: Patient tachycardic with an irregular irregular rhythm Respiratory: Clear to auscultation bilaterally Abdomen: Soft, nondistended, nontender to palpation Extremities: +5/5 strength noted in the bilateral lower extremities, radial pulses +2/4 in the bilateral extremities Neurological: Patient following commands knew that he was at [facility] the year is 2024 Skin: Warm, dry, tact no rashes or lesions noted Const Vital Signs: 08/02/25 05:19 08/02/25 05:26 08/02/25 06:16 Temperature 97.3 F L Temperature Source Temporal Pulse Rate 144 H 91 Respiratory Rate 21 H 16 Blood Pressure 92/55 L 99/51 L Blood Pressure Mean 67 67 Pulse Ox 92 96 Oxygen Delivery Method Nasal Cannula Room Air Oxygen Flow Rate (L/min) 3 08/02/25 07:16 08/02/25 08:05 08/02/25 08:11 Temperature Temperature Source Pulse Rate 85 92 97 Respiratory Rate 26 H 18 30 H Blood Pressure 101/74 109/75 Blood Pressure Mean 83 86 Pulse Ox 98 91 70 Oxygen Delivery Method Room Air Oxygen Flow Rate (L/min) MDM MDM MDM Narrative Medical decision making narrative: Patient is 85-year-old female who presented to the emergency department chief complaint of palpitations. On the differential diagnosis includes but not meant to ACS, pneumonia, pneumothorax, PE although have low suspicion for this as she is chronically anticoagulated on Eliquis, electrolyte abnormality. Once workup is obtained and reviewed she will be reevaluated. Patient be given 30 cc/kg bolus of IV fluids as well as 5 mg of Lopressor. Patient's CBC was reviewed and showed no evidence of leukocytosis white blood count 9, hemoglobin 15.7, plate count of 179. Patient INR is 1.1, PT of 14.8. Patient sodium is 140, potassium normal 4.2, creatinine normal at 0.87. Patient's lactic acid elevated 2.9, AST and ALT are 23 and 16 respectively with a normal total bilirubin of 0.66. Patient's troponin was 13 and a 2-hour troponin was noted to be 23 however I believe this is likely secondary to her A-fib with RVR when she arrived to the emergency department. Patient does not have any chest pain associated with this. Patient proBNP was noted to be 645. Patient's EKG reviewed which showed atrial fibrillation with rapid ventricular response with a rate of 132. Patient chest x-ray reviewed and showed cardiomegaly with mild central vascular congestion and focal infiltrate in the medial right lung base infiltrate in the left is not excluded. Patient was given Rocephin and azithromycin at 728. After Lopressor given patient's heart rate normalized and her blood pressure had improved. Patient's case will be discussed with on-call cardiology. Discussed case with on-call research manufacturing operator Dr. Murillo and after discussion with him we agreed upon restarting the patient's digoxin she will be given a dose here in the emergency department as well. Patient has IV fluids still going before the repeat lactic acid therefore her case will be signed out to oncoming provider see his note for ultimate addendum and disposition details. Pending this goes down or normalizes she will be discharged home with instructions to follow-up with her doctor in outpatient setting as well as her cardiology team. She was advised to take her digoxin that she already has at home she states. Prescription for doxycycline will also be sent to the pharmacy. All question and concerns were answered at bedside. Lab Data Labs: Laboratory Results - last 24 hr 08/02/25 08/02/25 08/02/25 05:40 05:48 07:47 WBC 9.0 RBC 5.23 Hgb 15.7 H Hct 48.2 H MCV 92.2 MCH 30.0 MCHC 32.6 RDW Std Deviation 43.9 RDW Coeff of Sincere 13.0 Plt Count 179 MPV 10.4 Immature Gran % (Auto) 0.700 Neut % (Auto) 83.2 H Lymph % (Auto) 12.1 L [place] % (Auto) 3.4 Eos % (Auto) 0.3 Baso % (Auto) 0.3 Absolute Neuts (auto) 7.5 Absolute Lymphs (auto) 1.09 Nucleated RBC % 0 PT 14.8 INR 1.1 APTT 30.1 Sodium 140 Potassium 4.2 Chloride 101 Carbon Dioxide 24.2 Anion Gap 14 BUN 28 H Creatinine 0.87 Estim Creat Clear Calc 48.34 L Est GFR (MDRD) Non-Af 64 BUN/Creatinine Ratio 31.7 H Glucose 133 H Lactic Acid 2.9 H* Calcium 9.2 Total Bilirubin 0.66 AST 23 ALT 16 Alkaline Phosphatase 91 Troponin T High Sens 13 Troponin T Hi Sens 2 Hr 23 H NT pro BNP II 645 Total Protein 6.1 Albumin 3.9 Globulin 2.3 Albumin/Globulin Ratio 1.7 Radiography Diagnostic Testing: Clinical Impression(s) from Imaging Studies Chest X-Ray 08/02/25 05:23 IMPRESSION: There is cardiomegaly with mild central vascular congestion. There is focal infiltrate in the medial right lung base. Infiltrate in the left is not excluded. Reading [facility] T[facility] Chief Complaint: Palpitations ED Provider: Denton Werner Dx/Rx/DC Orders Clinical Impression: Atrial fibrillation with RVR, NEAL (obstructive sleep apnea), Essential (primary) hypertension, Moderate COPD (chronic obstructive pulmonary disease), Pneumonia Prescriptions: New doxycycline hyclate 100 mg capsule 100 mg PO BID Qty: 10 0RF No Action latanoprost 0.005 % drops 1 drp OPHTHALMIC DAILY Entresto 97-103 mg tablet 1 tab PO BID Eliquis 2.5 mg tablet 2.5 mg PO BID Adult 50 Plus Probiotic 4 billion cell capsule 4,000 mmu cells PO DAILY Rx Instructions: administer with a meal Verquvo 10 mg tablet 10 mg PO DAILY Rx Instructions: must administer with a meal/food brimonidine 0.2 % drops 1 drp ophthalmic (eye) BID Patient Comments: left eye dorzolamide 2 % drops 1 drp ophthalmic (eye) BID Patient Comments: left eye cholecalciferol (vitamin D3) 25 mcg (1,000 unit) tablet 25 mcg PO QDAY levothyroxine 25 mcg tablet 25 mcg PO QDAY methenamine hippurate 1 gram tablet 1 g PO BID furosemide 40 mg tablet 40 mg PO BID Rx Instructions: Doesn't take it every day pravastatin 40 MG tablet 40 mg PO QHS Patient Comments: cholesterol timolol maleate 1 DROP drops 1 drp EACH EYE [facility] Patient Comments: glaucoma glaucoma ascorbic acid (vitamin C) 500 MG tablet 500 mg PO DAILY@0800 Eye Multivitamin 2,148 mcg-113 mg-45 mg-17.4mg tablet 1 tab PO BID Rx Instructions: administer with AM and PM meals carvedilol 6.25 mg tablet 6.25 mg PO BID Qty: 180 3RF Primary Care Provider: Chris Mendez Chi Referrals: Chris Mendez Chi, MD [Primary Care Provider, Geriatrics] Activity Restrictions/Additional Instructions: Start taking your digoxin daily again that you have at home. Follow-up with your research manufacturing operator outpatient setting. Take antibiotics sent to your pharmacy as prescribed. Return to worsening symptoms or any concerns. Print Language: Mongolian
[2025-08-02 05:57] LABS: Hematocrit 48.2 % (37-47); Hemoglobin 15.7 g/dL (12.0-15.0); Immature Granulocytes Count 0.060 X10^3/uL (0.0-0.0); Mean Corp Hgb Conc 32.6 g/dL (32-36); Mean Corpuscular Volume 92.2 fL (81-99); Mean Platelet Vol. 10.4 fl (6.2-12.0); NRBC Flagged by Analyzer 0 % (0-5); Platelet Count 179 K/mm3 (150-450); RBC Distribution Width CV 13.0 % (11.6-14.6); RBC Distribution Width SD 43.9 fl (35.1-43.9); Red Blood Count 5.23 M/mm3 (4.2-5.4); White Blood Count 9.0 K/mm3 (4.4-11.0)
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
[2025-08-02 06:06] LABS: Prothrombin Time (Protime)PT. 14.8 SECONDS (11.7-14.9)
[2025-08-02 06:07] LABS: Partial Thromboplast Time 30.1 Seconds (24.1-36.2)
[2025-08-02 06:26] LABS: AST(SGOT) 23 U/L (<=31); Alanine Aminotransfer ALT/SGPT 16 U/L (<=34); Albumin, Serum 3.9 g/dL (3.4-4.8); Alkaline Phosphatase 91 U/L (35-104); Anion Gap 14 (5-15); BUN 28 mg/dL (4-19); BUN/Creat Ratio 31.7 RATIO (10-20); Calcium,Total 9.2 mg/dL (7.6-11.0); Carbon Dioxide 24.2 mmol/L (21.0-32.0); Chloride 101 mmol/L (98-108); Estimated Creatinine Clearance 48.34 ml/min (50-250); Globulin 2.3 g/dL (2.2-4.2); Glucose 133 mg/dL (70-99); Potassium 4.2 mmol/L (3.3-5.1); Pro- Brain NATRIURETIC PEPTIDE 645 pg/mL (<=1800)
[2025-08-02 07:48] LABS: Troponin T High Sensitivity 13 ng/L (<=14)
[2025-08-02] MEDS: Ceftriaxone 2 GM in 0.9% Normal Saline (50mL MB+) 50 ML IV (07:55)
[2025-08-02 08:12] LABS: Troponin T High Sens 2 HR 23 ng/L (<=14)
[2025-08-02 08:22] LABS: Mucous, Urine 0 SEEN /hpf (<or=2+); Red Blood Cells-Urine 0 SEEN /hpf (0-5); Squamous Epithelial Cells - UA 0 SEEN /hpf (5-10)
[2025-08-02 08:27] LABS: Color, Urine Yellow (Yellow); Glucose, Dipstick Normal (Normal); Ketone-Dipstick Negative (Negative); Leukocyte Esterase-Dipstick 100 /ul (Negative); Nitrite-Dipstick Negative (Negative); Occult Blood-Urine Negative /ul (Negative); Protein-Dipstick 15 mg/dl (Negative); Specific Gravity, Urine 1.010 (1.002-1.030); Urine Bilirubin Dipstick Negative (Negative)
[2025-08-02] MEDS: Azithromycin 500 MG in 0.9% Normal Saline (250mL Bag) 250 ML 250 MG IV (08:53)
[2025-08-02 09:51] LABS: Reflex Lactate? Y
[2025-08-02 10:48] LABS: Troponin T High Sens 4 HR 36 ng/L (<=14)
== END 2025-08-02 11:47 | disposition home or self-care (01) ==
PROVIDERS: Emergency Provider Emergency Medicine; PCP Family Medicine Geriatric Medicine; Visit Provider Emergency Medicine
DX: I48.0 Paroxysmal atrial fibrillation (principal); J44.0 Chronic obstructive pulmonary disease with (acute) lower respiratory infection; I10 Essential (primary) hypertension; R74.8 Abnormal levels of other serum enzymes; I25.10 Atherosclerotic heart disease of native coronary artery without angina pectoris; E78.5 Hyperlipidemia, unspecified; Z79.01 Long term (current) use of anticoagulants; G47.33 Obstructive sleep apnea (adult) (pediatric); J18.9 Pneumonia, unspecified organism; I51.7 Cardiomegaly; Z79.899 Other long term (current) drug therapy
CPT/HCPCS: 71046; 80053; 81001; 83605; 83880; 84484; 85025; 85610; 85730; 87040; 87077; 87086; 87088; 87186; 93005; 96361; 96365; 96366; 96367; 96375; 99285; A4216; J0696

== ENCOUNTER → 2025-09-28 | Outpatient (CLI) | payer MEDICARE, SELFPAY ==
[2020-01-07 10:52] VITALS: BMI 40.8
[2025-09-28 11:24] LABS: Hematocrit 42.4 % (37-47); Hemoglobin 13.8 g/dL (12.0-15.0); Immature Granulocytes Count 0.030 X10^3/uL (0.0-0.0); Mean Corp Hgb Conc 32.5 g/dL (32-36); Mean Corpuscular Volume 90.8 fL (81-99); Mean Platelet Vol. 9.8 fl (6.2-12.0); NRBC Flagged by Analyzer 0 % (0-5); Platelet Count 178 K/mm3 (150-450); RBC Distribution Width CV 12.9 % (11.6-14.6); RBC Distribution Width SD 42.5 fl (35.1-43.9); Red Blood Count 4.67 M/mm3 (4.2-5.4); White Blood Count 6.2 K/mm3 (4.4-11.0)
[2025-09-28 12:22] LABS: AST(SGOT) 21 U/L (<=31); Alanine Aminotransfer ALT/SGPT 10 U/L (<=34); Albumin, Serum 4.0 g/dL (3.4-4.8); Alkaline Phosphatase 64 U/L (35-104); Anion Gap 14 (5-15); BUN 14 mg/dL (4-19); BUN/Creat Ratio 20.7 RATIO (10-20); Calcium,Total 9.9 mg/dL (7.6-11.0); Carbon Dioxide 28.9 mmol/L (21.0-32.0); Chloride 100 mmol/L (98-108); Globulin 2.4 g/dL (2.2-4.2); Glucose 122 mg/dL (70-99); Potassium 4.8 mmol/L (3.3-5.1); Vitamin D,25 Hydroxy 29.6 ng/mL (30-100)
[2025-09-28 19:15] LABS: Xtra Tube Kwok EXTRA TUBE
== END | disposition home or self-care (01) ==
LOC: POLAB3 11:13
PROVIDERS: PCP Family Medicine Geriatric Medicine; Visit Provider Family Medicine Geriatric Medicine
DX: E11.22 Type 2 diabetes mellitus with diabetic chronic kidney disease (principal); E55.9 Vitamin D deficiency, unspecified; I12.9 Hypertensive chronic kidney disease with stage 1 through stage 4 chronic kidney disease, or unspecified chronic kidney disease; N18.9 Chronic kidney disease, unspecified; R53.83 Other fatigue
CPT/HCPCS: 36415; 80053; 82306; 84443; 85025